=== PATIENT | female | born 1955 | race Caucasian/White ===

== ENCOUNTER 2016-06-14 12:06 | Observation (INO) ==
--- NOTE | 2016-06-14 12:32 | Emergency Department Note ---
Disposition Clinical Impression: COPD (chronic obstructive pulmonary disease), Pneumonia Disposition: Admitted As Inpatient Condition: Fair Referrals: Kit Stern MD [Primary Care Provider] - Forms: Work/School Release, ED Satisfaction Letter Time of Disposition: 14:25 (Venegas obsv) SOB HPI - General Chief Complaint: ED General Medical Stated Complaint: vomiting, cough, and chest congestion Time Seen by Provider: 06/14/16 12:07 Source: patient, EMS Mode of arrival: ambulatory Limitations: no limitations Nursing Notes Reviewed: Yes Vital Signs Reviewed: Yes - History of Present Illness Pt Subjective Complaint: shortness of breath Onset (ago): day(s) (3) Context: recent illness Severity: severe Consistency/Duration: constant Improves with: oxygen Worsens with: exertion, movement, coughing Known history of: COPD, recurrent pneumonia Associated symptoms: Reports: cough, wheezing, sputum production. Denies: chest pain, pain with inspiration, fever, orthopnea, lower extremity pain, polyuria, polydipsia, parasthesias, palpitations, hemoptysis, diaphoresis, nausea/vomiting, syncope, abdominal pain, rash, sense of impending doom Treatment prior to arrival: oxygen, bronchodilator Cough present: Yes Cough Description: Involuntary, Non-Productive, Weak, Wheezy Cough Frequency: Intermittent Sputum production: Yes Sputum Amount: Small Sputum Color: Yellow, Green - Related Data Home Medications Medication Instructions Recorded Confirmed Melatonin 3 mg PO HS PRN 01/23/15 06/14/16 Roflumilast [Daliresp] 500 mcg PO DAILY 09/17/15 06/14/16 Budesonide/Formoterol 160/4.5 2 puff IH BID 03/20/16 06/14/16 [Symbicort 160/4.5] Cyclobenzaprine [Flexeril] 5 mg PO TID 03/20/16 06/14/16 HYDROcodone/Acet 10/325 mg [[place] 1 tab PO Q6HR PRN 03/20/16 06/14/16 10-325 mg] Warfarin Sodium 3 mg PO QPM 03/20/16 06/14/16 Ergocalciferol (VITAMIN D2) 50,000 unit PO 2XW 03/26/16 06/14/16 [Vitamin D2 (50,000 UNIT)] Multivitamin [Multi-Day Vitamins] 1 tab PO DAILY 03/26/16 06/14/16 Oxygen 1 each .ROUTE AD 03/26/16 06/14/16 Previous Rx's Medication Instructions Recorded Montelukast [Singulair] 10 mg PO DAILY #30 tablet 02/14/15 Ondansetron ODT [Zofran ODT] 4 mg SL Q6HR PRN #8 tab.rapdis 01/30/16 Atorvastatin [Lipitor] 10 mg PO HS 30 Days 03/31/16 Diltiazem CD (24hr) [Cardizem CD] 360 mg PO DAILY 30 Days 03/31/16 Sotalol [Betapace] 80 mg PO Q12H 30 Days 03/31/16 Albuterol Sulfate [Albuterol 2 puff IH Q2HR PRN #0 inhaler 05/31/16 Inhaler] LORazepam [Ativan] 1.5 mg PO Q6H tablet 05/31/16 Levalbuterol Neb [Xopenex Neb] 1.25 mg IH Q4HR PRN 30 Days 05/31/16 Magnesium Oxide [Mag-Ox] 400 mg PO DAILY 30 Days 05/31/16 Metoclopramide [Reglan] 5 mg PO BID tablet 05/31/16 PredniSONE 10 mg PO BIDWM #60 tablet 06/09/16 Allergies Allergy/AdvReac Type Severity Reaction Status Date / Time methyl salicylate Allergy See Verified 04/24/16 20:53 Comments metronidazole [From Flagyl] Allergy Hives Verified 04/24/16 20:55 orange juice [[place] Juice] Allergy Swelling Verified 04/24/16 20:55 of Lip/Tongue/Throat sertraline [From Zoloft] Allergy Agitated Verified 04/24/16 20:55 vancomycin Allergy Vomiting Verified 04/24/16 20:55 fidaxomicin [From Dificid] AdvReac Vomiting Verified 04/24/16 20:55 ketorolac [From Toradol] AdvReac Vomiting Verified 05/24/16 17:43 menthol AdvReac Difficulty Verified 04/24/16 20:55 Breathing meperidine [From Demerol] AdvReac Vomiting Verified 04/24/16 20:55 ropinirole [From Requip] AdvReac Vomiting Verified 04/24/16 20:55 simvastatin AdvReac Muscle Pain Verified 04/24/16 20:55 tramadol AdvReac Vomiting Verified 04/24/16 20:55 zolmitriptan AdvReac Agitated Verified 04/24/16 20:55 All systems ED: reviewed and negative except as stated. Constitutional: Denies: fever, chills, weakness Eyes: Denies: vision change ENT ED: Denies: ear pain, throat pain Cardiovascular: Denies: chest pain, palpitations, dyspnea on exertion Respiratory: Reports: cough, dyspnea, wheezes, sputum production Gastrointestinal: Denies: abdominal pain, nausea, vomiting Genitourinary: Denies: urgency, dysuria, frequency Musculoskeletal: Denies: back pain, neck pain Integumentary: Denies: rash Neurological: Denies: headache Psychiatric: Denies: anxiety Endocrine: Denies: fatigue Hematological/Lymphatic: Denies: easy bleeding Allergic/Immunologic: Denies: facial swelling Past Medical History - Past Medical History Attestation: Yes The following information was validated with the patient. Source: patient, old records reviewed, nursing notes reviewed Medical history: Reports: asthma, atrial fibrillation, COPD, DVT, GERD, hyperlipidemia, hypertension, renal disease, SVT, thyroid disease Surgical history: Reports: cataract, cholecystectomy, colostomy, herniorrhaphy Psychiatric history: Reports: anxiety, depression, panic disorder [employer] history: Reports: no [employer] history - Social History Smoking Status: Former smoker Smokeless Tobacco Status: No Alcohol use: Reports: none Drug use: Reports: none Physical Exam - General Limitations: no limitations General appearance: alert, in no apparent distress - Head Head exam: atraumatic, normocephalic, normal inspection - Eye Eye exam: Present: normal appearance, PERRL, EOMI - ENT ENT exam: normal exam, normal oropharynx, mucous membranes moist, normal external ear exam - Neck Neck exam: Present: normal inspection, full ROM, trachea midline - Chest Chest inspection: Present: normal inspection, symmetric chest wall rise - Respiratory Respiratory exam: Present: normal lung sounds bilaterally, wheezes, prolonged expiratory phase - Cardiovascular Cardiovascular exam: Present: regular rate, normal rhythm, normal heart sounds - Abdominal Exam Abdominal exam: Present: soft, Non-Tender, normal bowel sounds - Expanded Upper Extremity Exam Shoulder exam: Present: normal inspection, full ROM Arm exam: Present: normal inspection, full ROM Elbow exam: Present: normal inspection, full ROM Forearm/Wrist exam: Present: normal inspection, full ROM Hand exam: Present: normal inspection, full ROM Vascular exam: Normal: capillary refill, radial pulse - Expanded Lower Extremity Exam Hip/Pelvis exam: Present: normal inspection, full ROM Upper leg exam: Present: normal inspection, full ROM Knee exam: Present: normal inspection, full ROM Lower leg exam: Present: normal inspection, full ROM Ankle exam: Present: normal inspection, full ROM Foot/toe exam: Present: normal inspection, full ROM Neurovascular/Tendon exam: Absent: motor deficit, sensory deficit, tendon deficit Course Course Narrative: Patient seen and examined about external ER patients admitted for observation transfer to [facility] Dr. Venegas agrees Vital Signs Temperature 97.6 F 06/14/16 12:07 Pulse Rate 73 06/14/16 12:07 Respiratory Rate 18 06/14/16 12:07 Blood Pressure 120/87 06/14/16 12:07 O2 Sat by Pulse Oximetry 95 06/14/16 12:07 Temperature 97.6 F 06/14/16 12:10 Pulse Rate 94 06/14/16 13:56 Respiratory Rate 18 06/14/16 13:56 Blood Pressure 121/71 06/14/16 13:56 O2 Sat by Pulse Oximetry 99 06/14/16 13:56 Oxygen Delivery Oxygen Delivery Nasal Cannula Shortness of Breath/Dyspnea - Differential Diagnosis Likely: acute exacerbation of chronic obstructive airways disease - Medical Records Medical records reviewed: Yes I reviewed the patient's medical records. - Lab Data Lab results reviewed: Yes I reviewed the patient's lab results. Result diagrams: 06/14/16 12:54 06/14/16 12:54 Lab Results 06/14/16 06/14/16 06/14/16 Range/Units 12:54 12:54 12:54 WBC 16.2 H (4.3-11.1) K/mcL RBC 4.27 (3.82-4.97) M/mcL Hgb 13.0 (11.5-15.4) g/dL Hct 41.8 (35.3-44.9) % MCV 97.9 (83.0-100.0) fL MCH 30.4 (28.0-33.3) pg MCHC 31.1 L (31.6-35.5) g/dL RDW 15.6 H (11.5-14.5) % Plt Count 293 (140-400) K/mcL MPV 9.5 (9.4-12.4) fL Immature Gran % 1.5 (0-4) % Seg Neutrophils % 73.8 % Lymphocytes % 14.3 % Monocytes % 8.5 % Eosinophils % 1.7 % Basophils % 0.2 % Neutrophils # 12.0 H (1.6-8.9) K/mcL Lymphocytes # 2.3 (0.6-4.6) K/mcL Monocytes # 1.4 H (0.0-1.3) K/mcL Eosinophils # 0.3 (0.0-0.6) K/mcL Basophils # 0.0 (0.0-0.2) K/mcL PT 62.9 H* (9.4-12.1) Seconds INR 5.5 H* APTT 56.5 H (26.0-36.0) Seconds Sodium 142 (136-145) mEq/L Potassium 3.7 (3.5-4.5) mEq/L Chloride 98 (98-109) mEq/L Carbon Dioxide 35 H (19-29) mEq/L BUN 17 (7-20) mg/dL Creatinine 0.79 (0.57-1.11) mg/dL Est GFR ( Amer) > 60 (> 60) Est GFR (Non-Af Amer) > 60 (> 60) BUN/Creatinine Ratio 22 (6-26) Glucose 102 H (70-99) mg/dL Calculated Osmolality 296 (280-300) Calcium 10.0 (8.6-10.8) mg/dL Troponin I (0-0.03) ng/mL B-Natriuretic Peptide (0-100) pg/mL 06/14/16 06/14/16 Range/Units 12:54 12:54 WBC (4.3-11.1) K/mcL RBC (3.82-4.97) M/mcL Hgb (11.5-15.4) g/dL Hct (35.3-44.9) % MCV (83.0-100.0) fL MCH (28.0-33.3) pg MCHC (31.6-35.5) g/dL RDW (11.5-14.5) % Plt Count (140-400) K/mcL MPV (9.4-12.4) fL Immature Gran % (0-4) % Seg Neutrophils % % Lymphocytes % % Monocytes % % Eosinophils % % Basophils % % Neutrophils # (1.6-8.9) K/mcL Lymphocytes # (0.6-4.6) K/mcL Monocytes # (0.0-1.3) K/mcL Eosinophils # (0.0-0.6) K/mcL Basophils # (0.0-0.2) K/mcL PT (9.4-12.1) Seconds INR APTT (26.0-36.0) Seconds Sodium (136-145) mEq/L Potassium (3.5-4.5) mEq/L Chloride (98-109) mEq/L Carbon Dioxide (19-29) mEq/L BUN (7-20) mg/dL Creatinine (0.57-1.11) mg/dL Est GFR ( Amer) (> 60) Est GFR (Non-Af Amer) (> 60) BUN/Creatinine Ratio (6-26) Glucose (70-99) mg/dL Calculated Osmolality (280-300) Calcium (8.6-10.8) mg/dL Troponin I 0.01 (0-0.03) ng/mL B-Natriuretic Peptide 12 (0-100) pg/mL - Radiology Data Radiology results reviewed: Yes I reviewed the patient's radiology results. ITS Impressions Chest X-Ray 06/14/16 12:28 IMPRESSION: Focal consolidation with rounded morphology suggests in the left lower lobe obscured by the cardiac shadow. Follow-up is recommended to ensure resolution with a full inspiration PA and lateral view chest x-ray. D/ / Francis Ramos MD / Francis Ramos MD Interpreting Provider: Francis Ramos MD - EKG Data EKG attestation: Yes I reviewed and interpreted this EKG. EKG results narrative: Rhythm atrial fib pulmonary changes Heart Rate 101 AR QRS 80 QT 315 Axes -78 Critical Care Time Critical Care Time: No
[2016-06-14 13:08] LABS: Basophils % 0.2 %; Eosinophils # 0.3 K/mcL (0.0-0.6); Eosinophils % 1.7 %; Hematocrit 41.8 % (35.3-44.9); Immature Granulocytes % 1.5 % (0-4); Lymphocytes # 2.3 K/mcL (0.6-4.6); Lymphocytes % 14.3 %; Mean Corpuscular HGB Conc 31.1 g/dL (31.6-35.5); Mean Corpuscular Hemoglobin 30.4 pg (28.0-33.3); Mean Corpuscular Volume 97.9 fL (83.0-100.0); Mean Platelet Volume 9.5 fL (9.4-12.4); Monocytes # 1.4 K/mcL (0.0-1.3); Monocytes % 8.5 %; Platelet Count 293 K/mcL (140-400); Red Blood Count 4.27 M/mcL (3.82-4.97); Red Cell Distribution Width 15.6 % (11.5-14.5); Segmented Neutrophils % 73.8 %
[2016-06-14 13:17] LABS: Activated Partial Thrombo Time 56.5 Seconds (26.0-36.0)
[2016-06-14 13:25] LABS: BUN/Creatinine Ratio 22 (6-26); Blood Urea Nitrogen 17 mg/dL (7-20); Carbon Dioxide 35 mEq/L (19-29); Chloride 98 mEq/L (98-109); Glucose 102 mg/dL (70-99); Osmolality,Calculated 296 (280-300); Potassium 3.7 mEq/L (3.5-4.5); Sodium 142 mEq/L (136-145); eGFR For African Americans > 60 (> 60); eGFR For Non-African Americans > 60 (> 60)
[2016-06-14 13:30] LABS: INR 5.5; Prothrombin Time 62.9 Seconds (9.4-12.1)
[2016-06-14] MEDS ORDERED: CefTRIAXone 1,000 MG in D5% in Water (Mini-Bag+) 100 ML IVPB ONE (14:12)
[2016-06-14] MEDS ORDERED: Azithromycin 500 MG in D5% in Water 250 ML IVPB ONE (14:12)
[2016-06-14] MEDS ORDERED: 0.9 % Sodium Chloride 1,000 ML IVC SCH (14:15)
[2016-06-14] MEDS ORDERED: Naloxone 0.4 MG/ML INJ IVP PRN (15:38)
[2016-06-14] MEDS: *HR* LORazepam 0.5 MG TABLET PO SCH ×2 (16:25→21:26)
[2016-06-14] MEDS: Ondansetron ODT 4 MG TAB.RAPDIS SL PRN ×2 (16:26→21:26)
[2016-06-14] MEDS: Levalbuterol Neb 1.25 MG/3 ML IH PRN ×2 (17:24→20:27)
[2016-06-14] MEDS ORDERED: *HR* Warfarin 1 MG TABLET PO SCH (18:00)
[2016-06-14] MEDS: Azithromycin 500 MG in D5% in Water 250 ML IVPB SCH (18:36)
[2016-06-14] MEDS: 0.9 % Sodium Chloride 1,000 ML IVC SCH (19:28)
[2016-06-14] MEDS: Budesonide/Formoterol 160/4.5 MDI IH SCH (20:27)
[2016-06-14] MEDS: *HR* HYDROcodone/Acet 10/325 mg TABLET PO PRN (21:26)
[2016-06-15] MEDS: *HR* LORazepam 0.5 MG TABLET PO SCH ×4 (04:26→21:18)
[2016-06-15] MEDS: Levalbuterol Neb 1.25 MG/3 ML IH PRN ×5 (04:40→20:59)
[2016-06-15 06:37] LABS: Basophils % 0.3 %; Eosinophils # 0.2 K/mcL (0.0-0.6); Eosinophils % 2.1 %; Hematocrit 34.9 % (35.3-44.9); Hemoglobin 11.2 g/dL (11.5-15.4); Immature Granulocytes % 1.2 % (0-4); Lymphocytes # 2.4 K/mcL (0.6-4.6); Lymphocytes % 21.2 %; Mean Corpuscular HGB Conc 32.1 g/dL (31.6-35.5); Mean Corpuscular Volume 96.7 fL (83.0-100.0); Mean Platelet Volume 9.2 fL (9.4-12.4); Monocytes # 1.1 K/mcL (0.0-1.3); Monocytes % 9.5 %; Neutrophils # 7.4 K/mcL (1.6-8.9); Platelet Count 238 K/mcL (140-400); Red Blood Count 3.61 M/mcL (3.82-4.97); Red Cell Distribution Width 15.6 % (11.5-14.5); Segmented Neutrophils % 65.7 %
[2016-06-15 06:54] LABS: BUN/Creatinine Ratio 19 (6-26); Blood Urea Nitrogen 11 mg/dL (7-20); Calcium 9.1 mg/dL (8.6-10.8); Carbon Dioxide 31 mEq/L (19-29); Chloride 101 mEq/L (98-109); Glucose 99 mg/dL (70-99); Osmolality,Calculated 289 (280-300); Potassium 3.5 mEq/L (3.5-4.5); Sodium 140 mEq/L (136-145); eGFR For African Americans > 60 (> 60); eGFR For Non-African Americans > 60 (> 60)
[2016-06-15 07:17] LABS: Activated Partial Thrombo Time 52.4 Seconds (26.0-36.0)
[2016-06-15] MEDS: 0.9 % Sodium Chloride 1,000 ML IVC SCH (08:12)
[2016-06-15] MEDS: Multivit/Ca/Min/Fe/FA 1 TAB TABLET PO SCH (08:13)
[2016-06-15] MEDS: Ondansetron ODT 4 MG TAB.RAPDIS SL PRN (08:13)
[2016-06-15] MEDS: Magnesium Oxide 400 MG TABLET PO SCH (08:13)
[2016-06-15] MEDS: Diltiazem CD (24hr) 180 MG CAPSULE PO SCH (08:13)
[2016-06-15] MEDS: [UNRECOGNIZED DRUG - OTHER] PO SCH (08:16)
[2016-06-15] MEDS: Cholecalciferol (D-3) 1,000 UNIT TABLET PO SCH (08:17)
[2016-06-15] MEDS: *HR* HYDROcodone/Acet 10/325 mg TABLET PO PRN ×2 (08:18→21:22)
[2016-06-15] MEDS: Budesonide/Formoterol 160/4.5 MDI IH SCH ×2 (08:51→22:38)
[2016-06-15 09:05] LABS: INR 4.8; Prothrombin Time 53.9 Seconds (9.4-12.1)
--- NOTE | 2016-06-15 10:10 | Internal Med History&Physical ---
Date of Encounter: 06/15/16 Time of Encounter: 09:45 Assessment and Plan (1) Pneumonia Current visit: Yes Status: Acute Continue Rocephin and Zithromax. I will add lactobacillus. Qualifiers: Pneumonia type: due to unspecified organism Laterality: left Lung location: lower lobe of lung Qualified Code(s): J18.9 - Pneumonia, unspecified organism (2) Anxiety Current visit: No Status: Acute Continue scheduled Ativan (3) Atrial fibrillation with rapid ventricular response Current visit: No Status: Acute Remains in normal sinus rhythm. Continue sotalol and diltiazem. We will hold Coumadin for now since INR is elevated. (4) Hypomagnesemia Current visit: No Status: Resolved Continue magnesium oxide Internal Medicine - H&P: HPI Chief complaint: Cough and vomiting Admitted From: Home Plans for Post Hospital Care: Home History of present illness: Ms. Stern is a 60 year old female who came to emergency room complaining of 3 day history of vomiting with crampy abdominal pain and a cough productive of greenish sputum. She also had complaints of a headache. She denied diarrhea. Her evaluation showed possible left lower lobe retrocardiac pneumonia. She was admitted to [facility] floor for ongoing care needs. She was discharged from [facility] swing bed June 09 following acute care stay May 25- for exacerbation of COPD. Her respiratory history is significant for having smoked from age [age] up to 3 packs per day. She had pulmonary function test done 09/15/2015 which showed very severe COPD. She follows with Dr. Jarvis at [facility]. She wears oxygen 24/7 at 2 L/m. She has had negative workup for sleep apnea in the past. She considered lung transplant at one time for COPD but decided against that. She is been hospitalized many times at [facility] the past few years with dyspnea. Her most recent chest CT was 04/15/2016 which showed no acute abnormalities. Past Med Surg Social Fam HX - Past Medical History Medical history: asthma, atrial fibrillation, COPD, DVT, GERD, hyperlipidemia, hypertension, renal disease, SVT, thyroid disease Psychiatric history: anxiety, depression, panic disorder - Past Surgical History Surgical History: cataract, cholecystectomy, colostomy, herniorrhaphy - Social History Smoking Status: Former smoker Smokeless Tobacco Status: No Alcohol use: none Drug use: none - Family History Father Family Member Ethnicity: Non- Living Status: Hx Family Cardiac Disorders: Yes ( of [place] at 58) Internal Medicine - H&P: Meds Melatonin 3 mg PO HS PRN 01/23/15 [History] Montelukast [Singulair] 10 mg PO DAILY #30 tablet 02/14/15 [Rx] Roflumilast [Daliresp] 500 mcg PO DAILY 09/17/15 [History] Ondansetron ODT [Zofran ODT] 4 mg SL Q6HR PRN #8 tab.rapdis 01/30/16 [Rx] Budesonide/Formoterol 160/4.5 [Symbicort 160/4.5] 2 puff IH BID 03/20/16 [ History] Cyclobenzaprine [Flexeril] 5 mg PO TID 03/20/16 [History] HYDROcodone/Acet 10/325 mg [[place] 10-325 mg] 1 tab PO Q6HR PRN 03/20/16 [History ] Warfarin Sodium 3 mg PO QPM 03/20/16 [History] Ergocalciferol (VITAMIN D2) [Vitamin D2 (50,000 UNIT)] 50,000 unit PO 2XW [History] Multivitamin [Multi-Day Vitamins] 1 tab PO DAILY 03/26/16 [History] Oxygen 1 each .ROUTE AD 03/26/16 [History] Atorvastatin [Lipitor] 10 mg PO HS 30 Days 03/31/16 [Rx] Diltiazem CD (24hr) [Cardizem CD] 360 mg PO DAILY 30 Days 03/31/16 [Rx] Sotalol [Betapace] 80 mg PO Q12H 30 Days 03/31/16 [Rx] Albuterol Sulfate [Albuterol Inhaler] 2 puff IH Q2HR PRN #0 inhaler 05/31/16 [Rx ] LORazepam [Ativan] 1.5 mg PO Q6H tablet 05/31/16 [Rx] Levalbuterol Neb [Xopenex Neb] 1.25 mg IH Q4HR PRN 30 Days 05/31/16 [Rx] Magnesium Oxide [Mag-Ox] 400 mg PO DAILY 30 Days 05/31/16 [Rx] Metoclopramide [Reglan] 5 mg PO BID tablet 12/15/16 [Rx] PredniSONE 10 mg PO BIDWM #60 tablet 06/09/16 [Rx] Allergies methyl salicylate Allergy (Verified 04/24/16 20:53) See Comments metronidazole [From Flagyl] Allergy (Verified 04/24/16 20:55) Hives orange juice [[place] Juice] Allergy (Verified 04/24/16 20:55) Swelling of Lip/Tongue/Throat sertraline [From Zoloft] Allergy (Verified 04/24/16 20:55) Agitated vancomycin Allergy (Verified 04/24/16 20:55) Vomiting fidaxomicin [From Dificid] Adverse Reaction (Verified 04/24/16 20:55) Vomiting ketorolac [From Toradol] Adverse Reaction (Verified 05/24/16 17:43) Vomiting menthol Adverse Reaction (Verified 04/24/16 20:55) Difficulty Breathing meperidine [From Demerol] Adverse Reaction (Verified 04/24/16 20:55) Vomiting ropinirole [From Requip] Adverse Reaction (Verified 04/24/16 20:55) Vomiting simvastatin Adverse Reaction (Verified 04/24/16 20:55) Muscle Pain tramadol Adverse Reaction (Verified 04/24/16 20:55) Vomiting zolmitriptan Adverse Reaction (Verified 04/24/16 20:55) Agitated All Systems PM: A 10-system review of systems was performed and is negative for pertinent findings except as documented above in the HPI. Review of systems: Review of systems from the May 2016 [facility] hospitalization were reviewed and revised as below. Gen.: Her weight has increased from approximately 150 pounds June 2015 to present weight of approximately 160 pounds. Cardiovascular: She has paroxysmal atrial fibrillation and hypertension. She was hospitalized for this at [facility] March 2016 and was initially placed on Rythmol but later changed to sotalol. She had DVT with pulmonary embolus July 2014 and had IVC filter placed at [facility]. She was initially placed on Coumadin but this was discontinued after approximately 3 months and she was placed on Xarelto. She developed nosebleeds and other complications so was restarted back on Coumadin after a few weeks. She had another pulmonary embolism February 2015 at [facility] after bowel surgery.She had a limited echocardiogram done 03/21/2016 which showed normal LV size. The LVEF was 55%. There was mild diastolic dysfunction reported on an September 2015 echo but no significant valvular abnormality seen. Left atrial size was normal at 3.30 cm. She had a heart catheter 2008 and an exercise stress test June 2012 which were negative. Respiratory: As per history of present illness GI: She is status post cholecystectomy. She had polyps seen on a 2005 colonoscopy but has not had follow-up procedure done. She had an EGD approximately 2006. She denies other liver or exocrine pancreas disorders. She had segmental resection of colon secondary to diverticulitis with perforation February 2015 at [facility]. Her postop course was complicated with pulmonary embolism. She had development of a colostomy and has been told she will not have a takedown procedure because of her severe COPD. : She had hematuria in the past that resolved. She denies other kidney or bladder disorders. She has had tubal ligation. Endocrine: She has hyperlipidemia but no known diabetes or thyroid disease. She has been diagnosed with vitamin D deficiency. Neurologic: No history of large distribution strokes or seizures. Hematology/oncology: She has had anemia and B12 and iron deficiency past. She has not had documented internal malignancies. Psychiatric: She has anxiety and depression but no other mental health issues Musk skeletal: She has DJD and osteoporosis but no known gout. - Constitutional Vitals: Temp Pulse Resp BP Pulse Ox 98.4 F 86 21 100/69 97 06/15/16 06:50 06/15/16 06:50 06/15/16 08:51 06/15/16 06:50 06/15/16 08:51 Exam: Gen.: She is a well-developed well-nourished female lying quietly in bed who appears in no severe distress but does appear uncomfortable HEENT: Head is atraumatic and normocephalic. Eyes: EOMI. There is no scleral icterus. Mouth: Mucosa is moist. Neck: Supple and nontender. There is no thyromegaly or adenopathy noted. Heart: Regular without murmurs gallops or ectopics. Lungs: She has diminished breath sounds diffusely. No wheezing or inspiratory crackles are heard. There is no egophony. Abdomen: Bowel sounds are present. An ostomy is in the left lower abdominal area with small amount of feces noted in the colostomy bag. The abdomen is nontender to palpation. Extremities: There is no cyanosis edema or clubbing noted. Dorsalis pedis and posterior tibial pulses are 1-2 over 2 bilaterally. Neurologic: Mental status: She is talkative and a good historian. Cranial nerves: Smile is symmetric. Forehead wrinkles bilaterally. Tongue protrudes midline. EOMI. Motor: There is no pronator drift. Cerebellar: Finger to nose is intact bilaterally. Skin: Warm and dry Internal Med - H&P Results - Labs CBC & Chem 7: 06/15/16 06:20 06/15/16 06:20 Labs: Short CBC 06/15/16 Range/Units 06:20 WBC 11.3 H (4.3-11.1) K/mcL Hgb 11.2 L D (11.5-15.4) g/dL Hct 34.9 L (35.3-44.9) % Plt Count 238 (140-400) K/mcL Neutrophils # 7.4 (1.6-8.9) K/mcL BMP 06/15/16 06:20 Sodium 140 Potassium 3.5 Chloride 101 Carbon Dioxide 31 H BUN 11 Creatinine 0.58 Glucose 99 Calcium 9.1
--- NOTE | 2016-06-15 11:18 | Electrocardiograph Report ---
[facility] Test Date: 2016-06-14 Pat Name: Meglarissa Cubaer Department: [id number] Room: [facility] Gender: F [employer] Member: [id number] : 1955 Requested By: Jailyn Stern Order Number: [id number] Reading MD: Clint Reyes Measurements Intervals [place] Rate: 101 P: NV: 0 QRS: -78 QRSD: 80 T: 58 QT: 315 QTc: 373 Interpretive Statements SINUS TACHYCARDIA LOW QRS VOLTAGE LEFT ATRIAL ENLARGEMENT Electronically Signed On 06-15-16 11:16:46 EST by Clint Reyes
[2016-06-15] MEDS: 0.45 % Sodium Chloride w/KCl 20 MEQ/1,000 ML MLS IVC SCH (11:46)
[2016-06-15] MEDS: CefTRIAXone 1,000 MG in D5% in Water (Mini-Bag+) 100 ML IVPB SCH (14:06)
[2016-06-15] MEDS: Azithromycin 500 MG in D5% in Water 250 ML IVPB SCH (18:27)
[2016-06-15] MEDS: Lactobacillus 1 EACH CAP.SPRINK PO SCH (21:17)
[2016-06-16] MEDS: 0.45 % Sodium Chloride w/KCl 20 MEQ/1,000 ML MLS IVC SCH (02:50)
[2016-06-16] MEDS: *HR* HYDROcodone/Acet 10/325 mg TABLET PO PRN ×4 (04:01→22:16)
[2016-06-16] MEDS: *HR* LORazepam 0.5 MG TABLET PO SCH ×4 (04:04→22:18)
[2016-06-16 05:22] LABS: Basophils % 0.2 %; Eosinophils # 0.2 K/mcL (0.0-0.6); Eosinophils % 2.2 %; Hematocrit 32.2 % (35.3-44.9); Immature Granulocytes % 1.2 % (0-4); Lymphocytes # 1.9 K/mcL (0.6-4.6); Lymphocytes % 21.6 %; Mean Corpuscular HGB Conc 31.1 g/dL (31.6-35.5); Mean Corpuscular Hemoglobin 30.6 pg (28.0-33.3); Mean Corpuscular Volume 98.5 fL (83.0-100.0); Mean Platelet Volume 8.8 fL (9.4-12.4); Monocytes # 0.9 K/mcL (0.0-1.3); Neutrophils # 5.8 K/mcL (1.6-8.9); Platelet Count 207 K/mcL (140-400); Red Blood Count 3.27 M/mcL (3.82-4.97); Red Cell Distribution Width 15.5 % (11.5-14.5); Segmented Neutrophils % 64.8 %
[2016-06-16] MEDS: Levalbuterol Neb 1.25 MG/3 ML IH PRN ×4 (07:12→21:55)
[2016-06-16] MEDS: Lactobacillus 1 EACH CAP.SPRINK PO SCH ×2 (08:34→22:18)
[2016-06-16] MEDS: Magnesium Oxide 400 MG TABLET PO SCH (08:35)
[2016-06-16] MEDS: Cholecalciferol (D-3) 1,000 UNIT TABLET PO SCH (08:35)
[2016-06-16] MEDS: Multivit/Ca/Min/Fe/FA 1 TAB TABLET PO SCH (08:35)
[2016-06-16] MEDS: Diltiazem CD (24hr) 180 MG CAPSULE PO SCH (08:35)
[2016-06-16] MEDS: [UNRECOGNIZED DRUG - OTHER] PO SCH (08:36)
--- NOTE | 2016-06-16 09:11 | Internal Med Progress Note ---
Date of Encounter: 06/16/16 Time of Encounter: 09:00 - Assessment and plan (1) Pneumonia Current Visit: Yes Status: Acute Assessment and plan: June 16. Continue Rocephin, Zithromax, and lactobacillus Qualifiers: Pneumonia type: due to unspecified organism Laterality: left Lung location: lower lobe of lung Qualified Code(s): J18.9 - Pneumonia, unspecified organism (2) Anxiety Current Visit: No Status: Acute Assessment and plan: June 16. Continue scheduled Ativan (3) Atrial fibrillation with rapid ventricular response Current Visit: No Status: Acute Assessment and plan: June 16. Continue sotalol and diltiazem. We will continue to hold Coumadin and recheck INR in a.m. (4) Hypomagnesemia Current Visit: No Status: Chronic Assessment and plan: June 16. Continue magnesium oxide. Magnesium level was normal today at 1.7. - Subjective Interval history: June 16. She has no new complaints and states she feels slightly better. - Constitutional Vitals: Temp Pulse Resp BP Pulse Ox 98.0 F 79 18 112/78 97 06/16/16 06:52 06/16/16 06:52 06/16/16 06:52 06/16/16 06:52 06/16/16 08:48 Exam: She is resting in bed appears in minimal distress. Her lungs showed diminished breath sounds diffusely but no wheezes or crackles. Heart is regular without murmurs gallops or ectopics. I reviewed her medications and lab results. Internal Medicine: Result - Labs CBC & Chem 7: 06/16/16 05:15 06/15/16 06:20 Labs: Short CBC 06/16/16 Range/Units 05:15 WBC 8.9 (4.3-11.1) K/mcL Hgb 10.0 L (11.5-15.4) g/dL Hct 32.2 L (35.3-44.9) % Plt Count 207 (140-400) K/mcL Neutrophils # 5.8 (1.6-8.9) K/mcL - ABG Interpretation ABG results: PT/INR, D-dimer PT 53.9 Seconds (9.4-12.1) H* 06/15/16 06:20 Consult Discharge Plan - Plan Referrals: Kit Stern MD [Primary Care Provider] - 1 week
[2016-06-16] MEDS: Budesonide/Formoterol 160/4.5 MDI IH SCH ×2 (10:36→21:55)
[2016-06-16] MEDS: CefTRIAXone 1,000 MG in D5% in Water (Mini-Bag+) 100 ML IVPB SCH (14:25)
[2016-06-16] MEDS: Azithromycin 500 MG in D5% in Water 250 ML IVPB SCH (18:00)
[2016-06-17] MEDS: *HR* LORazepam 0.5 MG TABLET PO SCH ×4 (03:59→22:54)
[2016-06-17] MEDS: *HR* HYDROcodone/Acet 10/325 mg TABLET PO PRN ×3 (04:01→22:56)
[2016-06-17 05:24] LABS: Basophils % 0.3 %; Eosinophils # 0.3 K/mcL (0.0-0.6); Eosinophils % 3.2 %; Hematocrit 33.2 % (35.3-44.9); Hemoglobin 10.3 g/dL (11.5-15.4); Lymphocytes # 1.8 K/mcL (0.6-4.6); Lymphocytes % 22.6 %; Mean Corpuscular Hemoglobin 30.8 pg (28.0-33.3); Mean Corpuscular Volume 99.4 fL (83.0-100.0); Mean Platelet Volume 8.8 fL (9.4-12.4); Monocytes # 0.8 K/mcL (0.0-1.3); Monocytes % 10.6 %; Neutrophils # 4.9 K/mcL (1.6-8.9); Platelet Count 205 K/mcL (140-400); Red Blood Count 3.34 M/mcL (3.82-4.97); Red Cell Distribution Width 15.4 % (11.5-14.5); Segmented Neutrophils % 62.3 %
[2016-06-17 05:33] LABS: INR 1.5; Prothrombin Time 15.9 Seconds (9.4-12.1)
[2016-06-17] MEDS: Budesonide/Formoterol 160/4.5 MDI IH SCH ×2 (08:50→21:17)
[2016-06-17] MEDS: Levalbuterol Neb 1.25 MG/3 ML IH PRN ×3 (08:50→21:17)
--- NOTE | 2016-06-17 10:03 | Internal Med Progress Note ---
Date of Encounter: 06/17/16 Time of Encounter: 09:55 - Assessment and plan (1) Pneumonia Current Visit: Yes Status: Acute Assessment and plan: June 16. Continue Rocephin, Zithromax, and lactobacillus June 17. We will discontinue Rocephin and Zithromax and lactobacillus since her WBC and left shift have normalized Qualifiers: Pneumonia type: due to unspecified organism Laterality: left Lung location: lower lobe of lung Qualified Code(s): J18.9 - Pneumonia, unspecified organism (2) Anxiety Current Visit: No Status: Acute Assessment and plan: June 16. Continue scheduled Ativan (3) Atrial fibrillation with rapid ventricular response Current Visit: No Status: Acute Assessment and plan: June 16. Continue sotalol and diltiazem. We will continue to hold Coumadin and recheck INR in a.m. June 17. We will restart Coumadin (4) Hypomagnesemia Current Visit: No Status: Chronic Assessment and plan: June 16. Continue magnesium oxide. Magnesium level was normal today at 1.7. - Subjective Interval history: June 16. She has no new complaints and states she feels slightly better. June 17. She states she is more dyspneic and has a headache - Constitutional Vitals: Temp Pulse Resp BP Pulse Ox 98.2 F 78 16 101/65 96 06/17/16 07:10 06/17/16 07:10 06/17/16 07:10 06/17/16 07:10 06/17/16 09:45 Exam: She is lying in bed and appears to be in pain. She is holding her head. Her lungs are clear peripherally but she has upper airway stridor as heard many times previously. I reviewed her medications and lab results. Internal Medicine: Result - Labs CBC & Chem 7: 06/17/16 05:18 06/15/16 06:20 Labs: Short CBC 06/17/16 Range/Units 05:18 WBC 7.8 (4.3-11.1) K/mcL Hgb 10.3 L (11.5-15.4) g/dL Hct 33.2 L (35.3-44.9) % Plt Count 205 (140-400) K/mcL Neutrophils # 4.9 (1.6-8.9) K/mcL - ABG Interpretation ABG results: PT/INR, D-dimer PT 15.9 Seconds (9.4-12.1) H D 06/17/16 05:18 Consult Discharge Plan - Plan Referrals: Kit Stern MD [Primary Care Provider] - 1 week
[2016-06-17] MEDS: Multivit/Ca/Min/Fe/FA 1 TAB TABLET PO SCH (10:08)
[2016-06-17] MEDS: [UNRECOGNIZED DRUG - OTHER] PO SCH (10:09)
[2016-06-17] MEDS: Magnesium Oxide 400 MG TABLET PO SCH (10:09)
[2016-06-17] MEDS: Diltiazem CD (24hr) 180 MG CAPSULE PO SCH (10:10)
[2016-06-17] MEDS: Cholecalciferol (D-3) 1,000 UNIT TABLET PO SCH (10:10)
[2016-06-17] MEDS: Lactobacillus 1 EACH CAP.SPRINK PO SCH (10:12)
[2016-06-17] MEDS: PredniSONE 10 MG TABLET PO SCH (15:33)
[2016-06-17] MEDS: *HR* Warfarin 1 MG TABLET PO SCH (16:19)
[2016-06-18] MEDS: *HR* LORazepam 0.5 MG TABLET PO SCH ×4 (04:25→21:10)
[2016-06-18] MEDS: Levalbuterol Neb 1.25 MG/3 ML IH PRN ×4 (08:03→21:06)
[2016-06-18] MEDS: PredniSONE 10 MG TABLET PO SCH ×2 (08:48→18:18)
[2016-06-18] MEDS: Magnesium Oxide 400 MG TABLET PO SCH (08:48)
[2016-06-18] MEDS: Diltiazem CD (24hr) 180 MG CAPSULE PO SCH (08:48)
[2016-06-18] MEDS: Multivit/Ca/Min/Fe/FA 1 TAB TABLET PO SCH (08:49)
[2016-06-18] MEDS: Cholecalciferol (D-3) 1,000 UNIT TABLET PO SCH (08:49)
[2016-06-18] MEDS: [UNRECOGNIZED DRUG - OTHER] PO SCH (08:49)
[2016-06-18] MEDS: *HR* HYDROcodone/Acet 10/325 mg TABLET PO PRN ×3 (09:45→21:10)
[2016-06-18] MEDS: Budesonide/Formoterol 160/4.5 MDI IH SCH ×2 (09:53→21:06)
--- NOTE | 2016-06-18 10:13 | Internal Med Progress Note ---
Date of Encounter: 06/18/16 Time of Encounter: 10:00 - Assessment and plan (1) Pneumonia Current Visit: Yes Status: Acute Assessment and plan: June 16. Continue Rocephin, Zithromax, and lactobacillus June 17. We will discontinue Rocephin and Zithromax and lactobacillus since her WBC and left shift have normalized June 18. Continue to observe off antibiotics. Qualifiers: Pneumonia type: due to unspecified organism Laterality: left Lung location: lower lobe of lung Qualified Code(s): J18.9 - Pneumonia, unspecified organism (2) Anxiety Current Visit: No Status: Acute Assessment and plan: June 16. Continue scheduled Ativan (3) Atrial fibrillation with rapid ventricular response Current Visit: No Status: Acute Assessment and plan: June 16. Continue sotalol and diltiazem. We will continue to hold Coumadin and recheck INR in a.m. June 17. We will restart Coumadin (4) Hypomagnesemia Current Visit: No Status: Chronic Assessment and plan: June 16. Continue magnesium oxide. Magnesium level was normal today at 1.7. (5) Fall Current Visit: Yes Status: Acute Assessment and plan: June 18. Will order physical therapy and occupational therapy evaluations. She stated she wished to go to [facility] for rehabilitation therapy if possible prior to returning home. Qualifiers: Encounter type: initial encounter Qualified Code(s): W19.XXXA - Unspecified fall, initial encounter - Subjective Interval history: June 16. She has no new complaints and states she feels slightly better. June 17. She states she is more dyspneic and has a headache June 18. She had a fall earlier today as she was attempting to go from her bed to the bedside commode. She fell onto her left side hitting her hip and head. - Constitutional Vitals: Temp Pulse Resp BP Pulse Ox 97.4 F L 84 16 131/90 93 L 06/18/16 09:00 06/18/16 09:00 06/18/16 09:52 06/18/16 09:00 06/18/16 09:52 Exam: She does not appear to be in significant pain at rest. She has an ecchymosis in her left lateral posterior thigh. There is tenderness to palpation of the bruised area. She has no pain on internal or external rotation of the hip. She has very mild ecchymosis of the left lateral orbital area. Her affect is bright and cheerful overall. We had a long discussion about her multiple hospitalizations over the past 2 years and need to change her environment in some way to avoid continuing the present cyclical admission pattern. Internal Medicine: Result - Labs CBC & Chem 7: 06/17/16 05:18 06/15/16 06:20 - ABG Interpretation ABG results: PT/INR, D-dimer PT 15.9 Seconds (9.4-12.1) H D 06/17/16 05:18 Consult Discharge Plan - Plan Referrals: Kit Stern MD [Primary Care Provider] - 1 week
[2016-06-18] MEDS: Ondansetron ODT 4 MG TAB.RAPDIS SL PRN ×2 (17:33→21:08)
[2016-06-18] MEDS: *HR* Warfarin 1 MG TABLET PO SCH (18:18)
[2016-06-18] MEDS: Melatonin 3 MG TABLET PO PRN (21:09)
[2016-06-19] MEDS: Levalbuterol Neb 1.25 MG/3 ML IH PRN ×4 (03:14→22:37)
[2016-06-19] MEDS: *HR* LORazepam 0.5 MG TABLET PO SCH (05:35)
[2016-06-19] MEDS: PredniSONE 10 MG TABLET PO SCH ×2 (08:01→16:46)
[2016-06-19] MEDS: *HR* HYDROcodone/Acet 10/325 mg TABLET PO PRN ×3 (08:01→22:36)
[2016-06-19] MEDS: Budesonide/Formoterol 160/4.5 MDI IH SCH ×2 (08:39→22:37)
[2016-06-19] MEDS: Diltiazem CD (24hr) 180 MG CAPSULE PO SCH (09:03)
[2016-06-19] MEDS: *HR* LORazepam 1 MG TABLET PO SCH ×3 (09:03→22:12)
[2016-06-19] MEDS: Multivit/Ca/Min/Fe/FA 1 TAB TABLET PO SCH (09:04)
[2016-06-19] MEDS: Cholecalciferol (D-3) 1,000 UNIT TABLET PO SCH (09:04)
[2016-06-19] MEDS: Magnesium Oxide 400 MG TABLET PO SCH (09:04)
[2016-06-19] MEDS: [UNRECOGNIZED DRUG - OTHER] PO SCH (09:04)
[2016-06-19] MEDS: *HR* Warfarin 1 MG TABLET PO SCH (18:08)
[2016-06-19] MEDS: Melatonin 3 MG TABLET PO PRN (22:12)
[2016-06-20] MEDS: *HR* LORazepam 1 MG TABLET PO SCH ×4 (07:39→21:34)
[2016-06-20] MEDS: Diltiazem CD (24hr) 180 MG CAPSULE PO SCH (07:44)
[2016-06-20] MEDS: Cholecalciferol (D-3) 1,000 UNIT TABLET PO SCH (07:44)
[2016-06-20] MEDS: Magnesium Oxide 400 MG TABLET PO SCH (07:44)
[2016-06-20] MEDS: Multivit/Ca/Min/Fe/FA 1 TAB TABLET PO SCH (07:45)
[2016-06-20] MEDS: PredniSONE 10 MG TABLET PO SCH ×2 (07:45→17:06)
[2016-06-20] MEDS: *HR* HYDROcodone/Acet 10/325 mg TABLET PO PRN ×2 (07:45→14:41)
[2016-06-20] MEDS: [UNRECOGNIZED DRUG - OTHER] PO SCH (08:02)
[2016-06-20] MEDS: Budesonide/Formoterol 160/4.5 MDI IH SCH ×2 (11:25→21:45)
[2016-06-20] MEDS: Levalbuterol Neb 1.25 MG/3 ML IH PRN ×3 (11:31→21:45)
--- NOTE | 2016-06-20 15:55 | Internal Med Progress Note ---
Date of Encounter: 06/20/16 Time of Encounter: 15:45 - Assessment and plan (1) Pneumonia Current Visit: Yes Status: Acute Assessment and plan: June 16. Continue Rocephin, Zithromax, and lactobacillus June 17. We will discontinue Rocephin and Zithromax and lactobacillus since her WBC and left shift have normalized June 18. Continue to observe off antibiotics. Qualifiers: Pneumonia type: due to unspecified organism Laterality: left Lung location: lower lobe of lung Qualified Code(s): J18.9 - Pneumonia, unspecified organism (2) Anxiety Current Visit: No Status: Acute Assessment and plan: June 16. Continue scheduled Ativan (3) Atrial fibrillation with rapid ventricular response Current Visit: No Status: Acute Assessment and plan: June 16. Continue sotalol and diltiazem. We will continue to hold Coumadin and recheck INR in a.m. June 17. We will restart Coumadin June 20. Will recheck labs in a.m. (4) Hypomagnesemia Current Visit: No Status: Chronic Assessment and plan: June 16. Continue magnesium oxide. Magnesium level was normal today at 1.7. June 20. We will recheck labs in a.m. (5) Fall Current Visit: Yes Status: Acute Assessment and plan: June 18. Will order physical therapy and occupational therapy evaluations. She stated she wished to go to [facility] for rehabilitation therapy if possible prior to returning home. Qualifiers: Encounter type: initial encounter Qualified Code(s): W19.XXXA - Unspecified fall, initial encounter - Subjective Interval history: June 16. She has no new complaints and states she feels slightly better. June 17. She states she is more dyspneic and has a headache June 18. She had a fall earlier today as she was attempting to go from her bed to the bedside commode. She fell onto her left side hitting her hip and head. June 20. She has no new complaints. She is awaiting insurance approval to go to [facility] - Constitutional Vitals: Temp Pulse Resp BP Pulse Ox 98.3 F 71 16 104/68 94 L 06/20/16 15:31 06/20/16 15:31 06/20/16 15:31 06/20/16 15:31 06/20/16 15:31 Exam: She is resting comfortably in bed in no acute distress. Her affect is cheerful. Her lungs show no stridor. Extremity show no edema. I reviewed her medications and lab results. Internal Medicine: Result - Labs CBC & Chem 7: 06/17/16 05:18 06/15/16 06:20 - ABG Interpretation ABG results: PT/INR, D-dimer PT 15.9 Seconds (9.4-12.1) H D 06/17/16 05:18 Consult Discharge Plan - Plan Referrals: Kit Stern MD [Primary Care Provider] - 1 week
[2016-06-20] MEDS: *HR* Warfarin 1 MG TABLET PO SCH (17:05)
[2016-06-21] MEDS: *HR* LORazepam 1 MG TABLET PO SCH ×4 (03:00→20:41)
[2016-06-21] MEDS: Ondansetron ODT 4 MG TAB.RAPDIS SL PRN (09:04)
[2016-06-21] MEDS: PredniSONE 10 MG TABLET PO SCH ×2 (09:05→17:58)
[2016-06-21] MEDS: Multivit/Ca/Min/Fe/FA 1 TAB TABLET PO SCH (09:05)
[2016-06-21] MEDS: Diltiazem CD (24hr) 180 MG CAPSULE PO SCH (09:05)
[2016-06-21] MEDS: [UNRECOGNIZED DRUG - OTHER] PO SCH (09:05)
[2016-06-21] MEDS: Magnesium Oxide 400 MG TABLET PO SCH (09:05)
[2016-06-21] MEDS: Cholecalciferol (D-3) 1,000 UNIT TABLET PO SCH (09:05)
[2016-06-21] MEDS: *HR* HYDROcodone/Acet 10/325 mg TABLET PO PRN ×3 (09:07→21:52)
[2016-06-21] MEDS: Levalbuterol Neb 1.25 MG/3 ML IH PRN ×2 (09:24→21:15)
[2016-06-21] MEDS: Budesonide/Formoterol 160/4.5 MDI IH SCH ×2 (09:25→21:15)
--- NOTE | 2016-06-21 15:33 | Internal Med Progress Note ---
Date of Encounter: 06/21/16 Time of Encounter: 15:25 - Assessment and plan (1) Pneumonia Current Visit: Yes Status: Acute Assessment and plan: June 16. Continue Rocephin, Zithromax, and lactobacillus June 17. We will discontinue Rocephin and Zithromax and lactobacillus since her WBC and left shift have normalized June 18. Continue to observe off antibiotics. Qualifiers: Pneumonia type: due to unspecified organism Laterality: left Lung location: lower lobe of lung Qualified Code(s): J18.9 - Pneumonia, unspecified organism (2) Anxiety Current Visit: No Status: Acute Assessment and plan: June 16. Continue scheduled Ativan (3) Atrial fibrillation with rapid ventricular response Current Visit: No Status: Acute Assessment and plan: June 16. Continue sotalol and diltiazem. We will continue to hold Coumadin and recheck INR in a.m. June 17. We will restart Coumadin June 20. Will recheck labs in a.m. June 21. We will recheck labs in a.m. (4) Hypomagnesemia Current Visit: No Status: Chronic Assessment and plan: June 16. Continue magnesium oxide. Magnesium level was normal today at 1.7. June 20. We will recheck labs in a.m. (5) Fall Current Visit: Yes Status: Acute Assessment and plan: June 18. Will order physical therapy and occupational therapy evaluations. She stated she wished to go to [facility] for rehabilitation therapy if possible prior to returning home. Qualifiers: Encounter type: initial encounter Qualified Code(s): W19.XXXA - Unspecified fall, initial encounter - Subjective Interval history: June 16. She has no new complaints and states she feels slightly better. June 17. She states she is more dyspneic and has a headache June 18. She had a fall earlier today as she was attempting to go from her bed to the bedside commode. She fell onto her left side hitting her hip and head. June 20. She has no new complaints. She is awaiting insurance approval to go to [facility]. June 21. She has no new complaints. She reports she was denied by insurance for [facility] placement. She intends to appeal the verdict. - Constitutional Vitals: Temp Pulse Resp BP Pulse Ox 97.6 F 70 16 115/78 96 06/21/16 11:05 06/21/16 11:05 06/21/16 11:05 06/21/16 11:05 06/21/16 11:05 Exam: She is resting comfortably in bed and appears in no acute distress. No wheezing or stridor is heard. Reviewed her medications and lab results. Internal Medicine: Result - Labs CBC & Chem 7: 06/17/16 05:18 06/15/16 06:20 - ABG Interpretation ABG results: PT/INR, D-dimer PT 15.9 Seconds (9.4-12.1) H D 06/17/16 05:18 Consult Discharge Plan - Plan Referrals: Kit Stern MD [Primary Care Provider] - 1 week
[2016-06-21] MEDS: *HR* Warfarin 1 MG TABLET PO SCH (17:57)
[2016-06-22] MEDS: *HR* LORazepam 1 MG TABLET PO SCH ×3 (02:42→14:59)
[2016-06-22 06:51] LABS: Basophils % 0.1 %; Eosinophils # 0.1 K/mcL (0.0-0.6); Eosinophils % 0.6 %; Hematocrit 33.6 % (35.3-44.9); Hemoglobin 10.6 g/dL (11.5-15.4); Immature Granulocytes % 1.1 % (0-4); Lymphocytes # 1.8 K/mcL (0.6-4.6); Mean Corpuscular HGB Conc 31.5 g/dL (31.6-35.5); Mean Corpuscular Hemoglobin 30.6 pg (28.0-33.3); Mean Corpuscular Volume 97.1 fL (83.0-100.0); Mean Platelet Volume 8.7 fL (9.4-12.4); Monocytes # 0.6 K/mcL (0.0-1.3); Neutrophils # 6.4 K/mcL (1.6-8.9); Platelet Count 251 K/mcL (140-400); Red Blood Count 3.46 M/mcL (3.82-4.97); Red Cell Distribution Width 15.3 % (11.5-14.5); Segmented Neutrophils % 71.2 %
[2016-06-22 07:04] LABS: INR 1.7; Prothrombin Time 18.3 Seconds (9.4-12.1)
[2016-06-22 07:14] LABS: BUN/Creatinine Ratio 22 (6-26); Blood Urea Nitrogen 14 mg/dL (7-20); Calcium 9.2 mg/dL (8.6-10.8); Carbon Dioxide 36 mEq/L (19-29); Chloride 99 mEq/L (98-109); Glucose 94 mg/dL (70-99); Magnesium 2.3 mg/dL (1.6-2.6); Osmolality,Calculated 294 (280-300); Potassium 4.6 mEq/L (3.5-4.5); Sodium 142 mEq/L (136-145); eGFR For African Americans > 60 (> 60); eGFR For Non-African Americans > 60 (> 60)
[2016-06-22] MEDS: Magnesium Oxide 400 MG TABLET PO SCH (07:34)
[2016-06-22] MEDS: PredniSONE 10 MG TABLET PO SCH ×2 (07:34→17:02)
[2016-06-22] MEDS: Cholecalciferol (D-3) 1,000 UNIT TABLET PO SCH (07:34)
[2016-06-22] MEDS: Multivit/Ca/Min/Fe/FA 1 TAB TABLET PO SCH (07:34)
[2016-06-22] MEDS: Diltiazem CD (24hr) 180 MG CAPSULE PO SCH (07:34)
[2016-06-22] MEDS: *HR* HYDROcodone/Acet 10/325 mg TABLET PO PRN ×2 (07:36→15:04)
[2016-06-22] MEDS: [UNRECOGNIZED DRUG - OTHER] PO SCH (07:39)
[2016-06-22] MEDS: Ondansetron ODT 4 MG TAB.RAPDIS SL PRN (08:54)
[2016-06-22] MEDS: Levalbuterol Neb 1.25 MG/3 ML IH PRN ×2 (10:15→15:23)
[2016-06-22] MEDS: Budesonide/Formoterol 160/4.5 MDI IH SCH (10:15)
[2016-06-22 13:59] VITALS: BP 95/56
--- NOTE | 2016-06-22 14:25 | Discharge Summary ---
Date of Encounter: 06/22/16 Time of Encounter: 14:15 - Discharge Diagnosis (1) Pneumonia Priority: Primary Status: Resolved Qualifiers: Pneumonia type: due to unspecified organism Laterality: left Lung location: lower lobe of lung Qualified Code(s): J18.9 - Pneumonia, unspecified organism (2) Anxiety Priority: Secondary Status: Chronic (3) Atrial fibrillation with rapid ventricular response Priority: Secondary Status: Acute (4) Hypomagnesemia Priority: Secondary Status: Resolved (5) Fall Priority: Secondary Status: Acute Qualifiers: Encounter type: initial encounter Qualified Code(s): W19.XXXA - Unspecified fall, initial encounter - Discharge Medications Home Medications: Melatonin 3 mg PO HS PRN 01/23/15 [History] Montelukast [Singulair] 10 mg PO DAILY #30 tablet 02/14/15 [Rx] Roflumilast [Daliresp] 500 mcg PO DAILY 09/17/15 [History] Ondansetron ODT [Zofran ODT] 4 mg SL Q6HR PRN #8 tab.rapdis 01/30/16 [Rx] Budesonide/Formoterol 160/4.5 [Symbicort 160/4.5] 2 puff IH BID 03/20/16 [ History] Cyclobenzaprine [Flexeril] 5 mg PO TID 03/20/16 [History] HYDROcodone/Acet 10/325 mg [[place] 10-325 mg] 1 tab PO Q6HR PRN 03/20/16 [History ] Warfarin Sodium 3 mg PO QPM 03/20/16 [History] Ergocalciferol (VITAMIN D2) [Vitamin D2 (50,000 UNIT)] 50,000 unit PO 2XW [History] Multivitamin [Multi-Day Vitamins] 1 tab PO DAILY 03/26/16 [History] Oxygen 1 each .ROUTE AD 03/26/16 [History] Atorvastatin [Lipitor] 10 mg PO HS 30 Days 03/31/16 [Rx] Diltiazem CD (24hr) [Cardizem CD] 360 mg PO DAILY 30 Days 03/31/16 [Rx] Sotalol [Betapace] 80 mg PO Q12H 30 Days 03/31/16 [Rx] Albuterol Sulfate [Albuterol Inhaler] 2 puff IH Q2HR PRN #0 inhaler 12/15/16 [Rx ] LORazepam [Ativan] 1.5 mg PO Q6H tablet 05/31/16 [Rx] Levalbuterol Neb [Xopenex Neb] 1.25 mg IH Q4HR PRN 30 Days 05/31/16 [Rx] Magnesium Oxide [Mag-Ox] 400 mg PO DAILY 30 Days 05/31/16 [Rx] Metoclopramide [Reglan] 5 mg PO BID tablet 05/31/16 [Rx] PredniSONE 10 mg PO BIDWM #60 tablet 06/09/16 [Rx] Allergies/Adverse Reactions: Allergies methyl salicylate Allergy (Verified 04/24/16 20:53) See Comments metronidazole [From Flagyl] Allergy (Verified 04/24/16 20:55) Hives orange juice [[place] Juice] Allergy (Verified 04/24/16 20:55) Swelling of Lip/Tongue/Throat sertraline [From Zoloft] Allergy (Verified 04/24/16 20:55) Agitated vancomycin Allergy (Verified 04/24/16 20:55) Vomiting fidaxomicin [From Dificid] Adverse Reaction (Verified 04/24/16 20:55) Vomiting ketorolac [From Toradol] Adverse Reaction (Verified 05/24/16 17:43) Vomiting menthol Adverse Reaction (Verified 04/24/16 20:55) Difficulty Breathing meperidine [From Demerol] Adverse Reaction (Verified 04/24/16 20:55) Vomiting ropinirole [From Requip] Adverse Reaction (Verified 04/24/16 20:55) Vomiting simvastatin Adverse Reaction (Verified 04/24/16 20:55) Muscle Pain tramadol Adverse Reaction (Verified 04/24/16 20:55) Vomiting zolmitriptan Adverse Reaction (Verified 04/24/16 20:55) Agitated Date of admission: 06/14/16 14:40 Primary care physician: Kit Stern MD Consults: 06/18/16 10:15 Consult to Occupational Therapy [CONS] Routine Comment: Evaluate, develop and implement POC Consult to Physical Therapy [CONS] Routine Comment: Evaluate, develop and implement POC - Patient Status Disposition: Home, Self-Care Condition: Fair Overall status at discharge: patient is progressing back to baseline - Discharge Instructions Follow Up With: Kit Stern MD [Primary Care Provider] - 1 week - Diet and Activity Activity: resume usual activities as tolerated, wear oxygen at all times Diet: advance to your usual diet Hospital course: Ms. Stern is a 60 year old female who came to emergency room complaining of 3 day history of vomiting with crampy abdominal pain and a cough productive of greenish sputum. She also had complaints of a headache. She denied diarrhea. Her evaluation showed possible left lower lobe retrocardiac pneumonia. [facility] was [facility] to [facility] for ongoing care needs. Initial orders were written by the emergency room physician. I saw her on June 15 and performed a history and physical. She was treated with Rocephin and Zithromax for the pneumonia. I added lactobacillus. She had good clinical response and antibiotics were discontinued on June 18. She remained afebrile and asymptomatic. She had slow improvement in her ability to ambulate and overall stamina. Physical therapy and occupational therapy evaluations were done with ongoing interventions. She requested to go to [facility] for further therapy but insurance denied this. On June 22 she was stable for discharge home. She will follow with Dr. Kit Stern within 1 week. - Time Spent with Patient Total time spent providing and/or coordinating discharge services: - Constitutional Vitals: Temp Pulse Resp BP Pulse Ox 98.7 F 72 18 95/56 96 06/22/16 13:58 06/22/16 13:58 06/22/16 13:58 06/22/16 13:58 06/22/16 13:58
--- NOTE | 2016-06-22 15:31 | Physician Discharge Referral ---
Home Health/Hosp Referral Info Transfer to: Home Health Attending Provider: Gildardo Provider in Charge Post Discharge: PCP (Kit Stern M.D.) - Diagnosis (1) Pneumonia Priority: Primary Status: Resolved (2) Anxiety Priority: Secondary Status: Chronic (3) Atrial fibrillation with rapid ventricular response Priority: Secondary Status: Acute (4) Hypomagnesemia Priority: Secondary Status: Resolved (5) Fall Priority: Secondary Status: Acute - Respiratory Orders Oxygen / L per min (2 l/m by MO 07/01) Smoking Cessation: Smoking cessation has been advised. For more information, call the [place] Tobacco Quit Line at 4-624-XRDL-NOW. - Diet/Nutrition Diet/Nutrition Orders: Regular - Activity Activity Orders: Ambulate - Services Needed Following services are medically necessary services: Nursing, Home Health Aide, Physical Therapy, Occupational Therapy - Transfer Medications Home Medications: Melatonin 3 mg PO HS PRN 01/23/15 [History] Montelukast [Singulair] 10 mg PO DAILY #30 tablet 02/14/15 [Rx] Roflumilast [Daliresp] 500 mcg PO DAILY 09/17/15 [History] Ondansetron ODT [Zofran ODT] 4 mg SL Q6HR PRN #8 tab.rapdis 01/30/16 [Rx] Budesonide/Formoterol 160/4.5 [Symbicort 160/4.5] 2 puff IH BID 03/20/16 [ History] Cyclobenzaprine [Flexeril] 5 mg PO TID 03/20/16 [History] HYDROcodone/Acet 10/325 mg [[place] 10-325 mg] 1 tab PO Q6HR PRN 03/20/16 [History ] Warfarin Sodium 3 mg PO QPM 03/20/16 [History] Ergocalciferol (VITAMIN D2) [Vitamin D2 (50,000 UNIT)] 50,000 unit PO 2XW [History] Multivitamin [Multi-Day Vitamins] 1 tab PO DAILY 03/26/16 [History] Oxygen 1 each .ROUTE AD 03/26/16 [History] Atorvastatin [Lipitor] 10 mg PO HS 30 Days 03/31/16 [Rx] Diltiazem CD (24hr) [Cardizem CD] 360 mg PO DAILY 30 Days 03/31/16 [Rx] Sotalol [Betapace] 80 mg PO Q12H 30 Days 03/31/16 [Rx] Albuterol Sulfate [Albuterol Inhaler] 2 puff IH Q2HR PRN #0 inhaler 05/31/16 [Rx ] LORazepam [Ativan] 1.5 mg PO Q6H tablet 05/31/16 [Rx] Levalbuterol Neb [Xopenex Neb] 1.25 mg IH Q4HR PRN 30 Days 05/31/16 [Rx] Magnesium Oxide [Mag-Ox] 400 mg PO DAILY 30 Days 05/31/16 [Rx] Metoclopramide [Reglan] 5 mg PO BID tablet 05/31/16 [Rx] PredniSONE 10 mg PO BIDWM #60 tablet 06/09/16 [Rx] Allergies/Adverse Reactions: Allergies methyl salicylate Allergy (Verified 04/24/16 20:53) See Comments metronidazole [From Flagyl] Allergy (Verified 04/24/16 20:55) Hives orange juice [[place] Juice] Allergy (Verified 04/24/16 20:55) Swelling of Lip/Tongue/Throat sertraline [From Zoloft] Allergy (Verified 04/24/16 20:55) Agitated vancomycin Allergy (Verified 04/24/16 20:55) Vomiting fidaxomicin [From Dificid] Adverse Reaction (Verified 04/24/16 20:55) Vomiting ketorolac [From Toradol] Adverse Reaction (Verified 05/24/16 17:43) Vomiting menthol Adverse Reaction (Verified 04/24/16 20:55) Difficulty Breathing meperidine [From Demerol] Adverse Reaction (Verified 04/24/16 20:55) Vomiting ropinirole [From Requip] Adverse Reaction (Verified 04/24/16 20:55) Vomiting simvastatin Adverse Reaction (Verified 04/24/16 20:55) Muscle Pain tramadol Adverse Reaction (Verified 04/24/16 20:55) Vomiting zolmitriptan Adverse Reaction (Verified 04/24/16 20:55) Agitated Certification: Further, I certify that my clinical findings support that this patient is homebound (i.e. absences from home require considerable and taxing effort and are for medical reasons or confucianism services or infrequently or short duration when for other reasons) because: Homebound Reason: Leaving home requires considerable and taxing effort due to condition (End stage COPD) Attestation: My signature below is to certify that this patient is under my care and that I, or nurse practitioner, or a physician's assistant laboratory director working with me, has a face-to -face encounter with this patient.
[2016-06-22] MEDS: *HR* Warfarin 1 MG TABLET PO SCH (17:02)
== END 2016-06-22 19:32 | disposition home or self-care (01) ==
LOC: INPPIK 12:06 → EMEROOPIK 12:06 → INPPIK 15:19
PROVIDERS: ADMIT Internal Medicine; ATTEND Internal Medicine

== ENCOUNTER 2016-08-06 15:28 | Observation (INO) ==
--- NOTE | 2016-08-06 15:39 | Emergency Department Note ---
Disposition Clinical Impression: Acute exacerbation of chronic obstructive airways disease Disposition: Admitted As Inpatient Referrals: Kit Stern MD [Primary Care Provider] - Forms: ED Satisfaction Letter SOB HPI - General Chief Complaint: ED Shortness of Breath/Dyspnea Stated Complaint: difficulty breathing Time Seen by Provider: 08/06/16 15:33 Source: patient Mode of arrival: private vehicle Limitations: no limitations Nursing Notes Reviewed: Yes Vital Signs Reviewed: Yes - History of Present Illness The patient relates she has had increased shortness of breath with chest tightness for about 2-3 days. She states she thought was secondary to the weather change she is continued with the dyspnea. Her cough is not productive of thick yellow phlegm. She denies definite fever and has had some chills. She has had some nausea without vomiting. She has diarrhea but says her colostomy output is looser. Dressing and lower extremity swelling, immobilization or injury. She cramping. She states she has been exposed to "everyone" at home with upper respiratory complaints. She is on prednisone 10 mg a day chronically and had her last burst of prednisone about 3 weeks ago. She does feel that she has had similar symptoms in the past with her COPD exacerbations. She does have some generalized weakness but has not been presyncopal. She denies headache, sore throat or neck pain. He has been alert with normal mental status. She reports taking all of her routine medicines and aerosols. Pt Subjective Complaint: shortness of breath Onset (ago): day(s) Context: recent illness Severity: moderate Consistency/Duration: gradually worsening Improves with: oxygen, bronchodilators Worsens with: movement, coughing Known history of: COPD Associated symptoms: Reports: chest pain, pain with inspiration, cough, wheezing , sputum production. Denies: fever, orthopnea, lower extremity pain, polyuria, polydipsia, parasthesias, palpitations, hemoptysis, diaphoresis, nausea/vomiting , syncope, abdominal pain, rash Treatment prior to arrival: oxygen, bronchodilator Cough present: Yes Cough Description: Voluntary, Productive, Moist, Rattling Cough Frequency: Intermittent Sputum production: Yes Sputum Amount: Moderate Sputum Color: Yellow - Related Data Home oxygen amount: 3 liters Home Medications Medication Instructions Recorded Confirmed Melatonin 3 mg PO HS PRN 01/23/15 06/14/16 Roflumilast [Daliresp] 500 mcg PO DAILY 09/17/15 06/14/16 Budesonide/Formoterol 160/4.5 2 puff IH BID 03/20/16 06/14/16 [Symbicort 160/4.5] Cyclobenzaprine [Flexeril] 5 mg PO TID 03/20/16 06/14/16 HYDROcodone/Acet 10/325 mg [[place] 1 tab PO Q6HR PRN 03/20/16 06/14/16 10-325 mg] Warfarin Sodium 3 mg PO QPM 03/20/16 06/14/16 Ergocalciferol (VITAMIN D2) 50,000 unit PO 2XW 03/26/16 06/14/16 [Vitamin D2 (50,000 UNIT)] Multivitamin [Multi-Day Vitamins] 1 tab PO DAILY 03/26/16 06/14/16 Oxygen 1 each .ROUTE AD 03/26/16 06/14/16 Previous Rx's Medication Instructions Recorded Montelukast [Singulair] 10 mg PO DAILY #30 tablet 02/14/15 Ondansetron ODT [Zofran ODT] 4 mg SL Q6HR PRN #8 tab.rapdis 01/30/16 Atorvastatin [Lipitor] 10 mg PO HS 30 Days 03/31/16 Diltiazem CD (24hr) [Cardizem CD] 360 mg PO DAILY 30 Days 03/31/16 Sotalol [Betapace] 80 mg PO Q12H 30 Days 03/31/16 Albuterol Sulfate [Albuterol 2 puff IH Q2HR PRN #0 inhaler 05/31/16 Inhaler] LORazepam [Ativan] 1.5 mg PO Q6H tablet 05/31/16 Levalbuterol Neb [Xopenex Neb] 1.25 mg IH Q4HR PRN 30 Days 05/31/16 Magnesium Oxide [Mag-Ox] 400 mg PO DAILY 30 Days 05/31/16 Metoclopramide [Reglan] 5 mg PO BID tablet 05/31/16 PredniSONE 10 mg PO BIDWM #60 tablet 06/09/16 Allergies Allergy/AdvReac Type Severity Reaction Status Date / Time methyl salicylate Allergy See Verified 08/06/16 15:30 Comments metronidazole [From Flagyl] Allergy Hives Verified 08/06/16 15:30 orange juice [[place] Juice] Allergy Swelling Verified 08/06/16 15:30 of Lip/Tongue/Throat sertraline [From Zoloft] Allergy Agitated Verified 08/06/16 15:30 vancomycin Allergy Vomiting Verified 08/06/16 15:30 fidaxomicin [From Dificid] AdvReac Vomiting Verified 08/06/16 15:30 ketorolac [From Toradol] AdvReac Vomiting Verified 08/06/16 15:30 menthol AdvReac Difficulty Verified 08/06/16 15:30 Breathing meperidine [From Demerol] AdvReac Vomiting Verified 08/06/16 15:30 ropinirole [From Requip] AdvReac Vomiting Verified 08/06/16 15:30 simvastatin AdvReac Muscle Pain Verified 08/06/16 15:30 tramadol AdvReac Vomiting Verified 08/06/16 15:30 zolmitriptan AdvReac Agitated Verified 08/06/16 15:30 All systems ED: reviewed and negative except as stated. Past Medical History - Past Medical History Attestation: Yes The following information was validated with the patient. Source: patient, old records reviewed, nursing notes reviewed Medical history: Reports: asthma, atrial fibrillation, COPD, DVT, GERD, hyperlipidemia, hypertension, renal disease, SVT, thyroid disease Surgical history: Reports: cataract, cholecystectomy, colostomy, herniorrhaphy Psychiatric history: Reports: anxiety, depression, panic disorder RETAIL ACCOUNT MANAGER history: Reports: no RETAIL ACCOUNT MANAGER history - Social History Smoking Status: Former smoker Smokeless Tobacco Status: No Alcohol use: Reports: none Drug use: Reports: none Physical Exam - General Limitations: no limitations General appearance: alert, in distress - Head Head exam: atraumatic, normocephalic, normal inspection - Eye Eye exam: Present: normal appearance, PERRL, EOMI - ENT ENT exam: normal exam, normal oropharynx, mucous membranes moist - Neck Neck exam: Present: normal inspection, full ROM, trachea midline. Absent: tenderness, lymphadenopathy - Chest Chest inspection: Present: normal inspection, symmetric chest wall rise. Absent : tenderness - Respiratory Respiratory exam: Present: respiratory distress, wheezes, prolonged expiratory phase. Absent: accessory muscle use - Cardiovascular Cardiovascular exam: Present: regular rate, normal rhythm, normal heart sounds. Absent: tachycardia - Abdominal Exam Abdominal exam: Present: soft, Non-Tender, normal bowel sounds. Absent: tenderness, distention, guarding, rebound, rigidity - Extremities Exam Extremities exam: Present: normal inspection, full ROM, normal capillary refill. Absent: tenderness, pedal edema, calf tenderness - Expanded Lower Extremity Exam Neurovascular/Tendon exam: Present: normal capillary refill. Absent: motor deficit, sensory deficit, tendon deficit Gait: not tested/not observed - Back Exam Back exam: Present: normal inspection, full ROM. Absent: tenderness, vertebral tenderness - Neurological Exam Neurological exam: Present: alert, oriented X3 - Psychiatric Psychiatric exam: Present: normal affect, normal mood - Skin Skin exam: Present: warm, dry, intact, normal color. Absent: rash, cyanosis, diaphoresis, pallor Course Course Narrative: 1644: There has been discussed with Dr. Ewing. He is agreeable to having this patient admitted to an observation status. Orders are obtained. Vital Signs Temperature 98 F 08/06/16 15:30 Pulse Rate 87 08/06/16 15:30 Respiratory Rate 16 08/06/16 15:30 Blood Pressure 143/93 08/06/16 15:30 O2 Sat by Pulse Oximetry 95 08/06/16 15:30 Temperature 98 F 08/06/16 15:38 Pulse Rate 77 08/06/16 16:37 Respiratory Rate 14 08/06/16 16:37 Blood Pressure 131/78 08/06/16 16:37 O2 Sat by Pulse Oximetry 94 L 08/06/16 16:37 Oxygen Delivery Oxygen Delivery Nasal Cannula Shortness of Breath/Dyspnea - Differential Diagnosis Likely: acute exacerbation of chronic obstructive airways disease, pneumonia, asthma with exacerbation - Medical Records Medical records reviewed: Yes I reviewed the patient's medical records. - Lab Data Lab results reviewed: Yes I reviewed the patient's lab results. Result diagrams: 08/06/16 16:06 08/06/16 16:06 Lab Results 08/06/16 08/06/16 08/06/16 Range/Units 16:06 16:06 16:06 WBC 13.4 H (4.3-11.1) K/mcL RBC 4.66 (3.82-4.97) M/mcL Hgb 14.2 (11.5-15.4) g/dL Hct 43.5 (35.3-44.9) % MCV 93.3 (83.0-100.0) fL MCH 30.5 (28.0-33.3) pg MCHC 32.6 (31.6-35.5) g/dL RDW 15.6 H (11.5-14.5) % Plt Count 344 (140-400) K/mcL MPV 8.9 L (9.4-12.4) fL Immature Gran % 1.9 (0-4) % Seg Neutrophils % 72.7 % Lymphocytes % 18.2 % Monocytes % 6.6 % Eosinophils % 0.2 % Basophils % 0.4 % Neutrophils # 9.7 H (1.6-8.9) K/mcL Lymphocytes # 2.4 (0.6-4.6) K/mcL Monocytes # 0.9 (0.0-1.3) K/mcL Eosinophils # 0.0 (0.0-0.6) K/mcL Basophils # 0.1 (0.0-0.2) K/mcL PT (9.4-12.1) Seconds INR APTT (26.0-36.0) Seconds Sodium 141 (136-145) mEq/L Potassium 4.0 (3.5-4.5) mEq/L Chloride 101 (98-109) mEq/L Carbon Dioxide 26 (19-29) mEq/L BUN 19 (7-20) mg/dL Creatinine 0.86 (0.57-1.11) mg/dL Est GFR ( Amer) > 60 (> 60) Est GFR (Non-Af Amer) > 60 (> 60) BUN/Creatinine Ratio 22 (6-26) Glucose 99 (70-99) mg/dL Calculated Osmolality 294 (280-300) Calcium 9.7 (8.6-10.8) mg/dL Troponin I 0.00 (0-0.03) ng/mL 08/06/16 Range/Units 16:06 WBC (4.3-11.1) K/mcL RBC (3.82-4.97) M/mcL Hgb (11.5-15.4) g/dL Hct (35.3-44.9) % MCV (83.0-100.0) fL MCH (28.0-33.3) pg MCHC (31.6-35.5) g/dL RDW (11.5-14.5) % Plt Count (140-400) K/mcL MPV (9.4-12.4) fL Immature Gran % (0-4) % Seg Neutrophils % % Lymphocytes % % Monocytes % % Eosinophils % % Basophils % % Neutrophils # (1.6-8.9) K/mcL Lymphocytes # (0.6-4.6) K/mcL Monocytes # (0.0-1.3) K/mcL Eosinophils # (0.0-0.6) K/mcL Basophils # (0.0-0.2) K/mcL PT 22.9 H (9.4-12.1) Seconds INR 2.1 APTT 32.2 (26.0-36.0) Seconds Sodium (136-145) mEq/L Potassium (3.5-4.5) mEq/L Chloride (98-109) mEq/L Carbon Dioxide (19-29) mEq/L BUN (7-20) mg/dL Creatinine (0.57-1.11) mg/dL Est GFR ( Amer) (> 60) Est GFR (Non-Af Amer) (> 60) BUN/Creatinine Ratio (6-26) Glucose (70-99) mg/dL Calculated Osmolality (280-300) Calcium (8.6-10.8) mg/dL Troponin I (0-0.03) ng/mL - Radiology Data Radiology results reviewed: Yes I reviewed the patient's radiology results. Single view chest x-ray is performed. This does not demonstrate evidence for infiltrate, effusion, pneumothorax, foreign body or heart failure. The cardiac silhouette is normal. Patient demonstrates hyperexpansion consistent with COPD. I do not see abnormality to the osseous structures of the chest. This is on my interpretation. Impressions Chest X-Ray 08/06/16 15:39 IMPRESSION: No acute cardiopulmonary disease. D/ / Dustin Kimble MD / Dustin Kimble MD Interpreting Provider: Dustin Kimble MD - EKG Data EKG attestation: Yes I reviewed and interpreted this EKG. EKG shows normal: Reports: sinus rhythm, axis, intervals, ST-T waves Rate: Reports: normal (81) [place]/QRS: Reports: IVCD, LAHB/LAFB QRS morphology: Reports: poor R-wave progression Interpretation: Reports: no acute changes (Consistent with chronic pulmonary disease.)
[2016-08-06] MEDS ORDERED: Levofloxacin 500 MG/100 ML 500 MG/100 ML BAG IVPB ONE (15:40)
[2016-08-06] MEDS ORDERED: Ipratropium/Albuterol Neb 3 ML IH ONE (15:40)
[2016-08-06] MEDS ORDERED: 0.9 % Sodium Chloride 1,000 ML IVC SCH ×2 (15:45→17:54)
[2016-08-06 16:13] LABS: Basophils # 0.1 K/mcL (0.0-0.2); Basophils % 0.4 %; Eosinophils % 0.2 %; Hematocrit 43.5 % (35.3-44.9); Hemoglobin 14.2 g/dL (11.5-15.4); Immature Granulocytes % 1.9 % (0-4); Lymphocytes # 2.4 K/mcL (0.6-4.6); Lymphocytes % 18.2 %; Mean Corpuscular HGB Conc 32.6 g/dL (31.6-35.5); Mean Corpuscular Hemoglobin 30.5 pg (28.0-33.3); Mean Corpuscular Volume 93.3 fL (83.0-100.0); Mean Platelet Volume 8.9 fL (9.4-12.4); Monocytes # 0.9 K/mcL (0.0-1.3); Monocytes % 6.6 %; Neutrophils # 9.7 K/mcL (1.6-8.9); Platelet Count 344 K/mcL (140-400); Red Blood Count 4.66 M/mcL (3.82-4.97); Red Cell Distribution Width 15.6 % (11.5-14.5); Segmented Neutrophils % 72.7 %
[2016-08-06 16:19] LABS: INR 2.1; Prothrombin Time 22.9 Seconds (9.4-12.1)
[2016-08-06 16:21] LABS: Activated Partial Thrombo Time 32.2 Seconds (26.0-36.0)
[2016-08-06 16:28] LABS: BUN/Creatinine Ratio 22 (6-26); Blood Urea Nitrogen 19 mg/dL (7-20); Calcium 9.7 mg/dL (8.6-10.8); Carbon Dioxide 26 mEq/L (19-29); Chloride 101 mEq/L (98-109); Glucose 99 mg/dL (70-99); Osmolality,Calculated 294 (280-300); Sodium 141 mEq/L (136-145); eGFR For African Americans > 60 (> 60); eGFR For Non-African Americans > 60 (> 60)
[2016-08-06] MEDS ORDERED: Ondansetron 4 MG/2 ML VIAL IVP ONE ×2 (17:53→17:54)
[2016-08-06] MEDS ORDERED: Ondansetron 4 MG/2 ML VIAL IVP PRN (17:54)
[2016-08-06] MEDS ORDERED: MOM Conc 10 ML UD.LIQ PO PRN (17:54)
[2016-08-06] MEDS ORDERED: Acetaminophen 325 MG TABLET PO PRN (17:54)
[2016-08-06] MEDS ORDERED: Naloxone 0.4 MG/ML INJ IVP PRN (17:54)
--- NOTE | 2016-08-06 18:51 | Internal Med History&Physical ---
Date of Encounter: 08/06/16 Time of Encounter: 18:30 Assessment and Plan (1) Acute exacerbation of chronic obstructive airways disease Current visit: Yes Status: Acute She has been started on Levaquin. Her WBC was elevated at 13.4 K. Will add lactobacillus. (2) Anxiety Current visit: No Status: Chronic We will restart Ativan at dose of 1 mg every 6 hours. (3) History of DVT (deep vein thrombosis) Current visit: No Status: Chronic Continue present dose Coumadin. Internal Medicine - H&P: HPI Chief complaint: Dyspnea Admitted From: Home Plans for Post Hospital Care: Home History of present illness: Ms. Stern is a 60 year old female who came to emergency room stating she had increasing dyspnea over the past 3-4 days. She had a cough productive of yellow mucus. She reports completing a seven-day course of Keflex the day prior to onset of increasing dyspnea. She reports having run out of Ativan 5 days ago. She was evaluated in emergency room and felt to have exacerbation of COPD. She was admitted to [facility] floor for ongoing care needs. Her respiratory history is significant for having smoked from age [age] up to 3 packs per day. She had pulmonary function test done 09/15/2015 which showed very severe COPD. She follows with Dr. Jarvis at [facility]. She wears oxygen 24/7 at 2 L/m. She has had negative workup for sleep apnea in the past. She considered lung transplant at one time for COPD but decided against that. She is been hospitalized many times at [facility] the past few years with dyspnea. Her most recent chest CT was 04/15/2016 which showed no acute abnormalities. Past Med Surg Social Fam HX - Past Medical History Medical history: asthma, atrial fibrillation, COPD, DVT, GERD, hyperlipidemia, hypertension, renal disease, SVT, thyroid disease Psychiatric history: anxiety, depression, panic disorder - Past Surgical History Surgical History: cataract, cholecystectomy, colostomy, herniorrhaphy - Social History Smoking Status: Former smoker Smokeless Tobacco Status: No Alcohol use: none Drug use: none - Family History Father Family Member Ethnicity: Non- Living Status: Hx Family Cardiac Disorders: Yes ( of [place] at 58) Internal Medicine - H&P: Meds Melatonin 3 mg PO HS PRN 01/23/15 [History] Montelukast [Singulair] 10 mg PO DAILY #30 tablet 02/14/15 [Rx] Roflumilast [Daliresp] 500 mcg PO DAILY 09/17/15 [History] Ondansetron ODT [Zofran ODT] 4 mg SL Q6HR PRN #8 tab.rapdis 01/30/16 [Rx] Budesonide/Formoterol 160/4.5 [Symbicort 160/4.5] 2 puff IH BID 03/20/16 [ History] Cyclobenzaprine [Flexeril] 5 mg PO TID 03/20/16 [History] HYDROcodone/Acet 10/325 mg [Foster 10-325 mg] 1 tab PO Q6HR PRN 03/20/16 [History ] Warfarin Sodium 3 mg PO QPM 03/20/16 [History] Ergocalciferol (VITAMIN D2) [Vitamin D2 (50,000 UNIT)] 50,000 unit PO 2XW [History] Multivitamin [Multi-Day Vitamins] 1 tab PO DAILY 03/26/16 [History] Oxygen 1 each .ROUTE AD 03/26/16 [History] Atorvastatin [Lipitor] 10 mg PO HS 30 Days 03/31/16 [Rx] Diltiazem CD (24hr) [Cardizem CD] 360 mg PO DAILY 30 Days 03/31/16 [Rx] Sotalol [Betapace] 80 mg PO Q12H 30 Days 03/31/16 [Rx] Albuterol Sulfate [Albuterol Inhaler] 2 puff IH Q2HR PRN #0 inhaler 05/31/16 [Rx ] LORazepam [Ativan] 1.5 mg PO Q6H tablet 05/31/16 [Rx] Levalbuterol Neb [Xopenex Neb] 1.25 mg IH Q4HR PRN 30 Days 05/31/16 [Rx] Magnesium Oxide [Mag-Ox] 400 mg PO DAILY 30 Days 05/31/16 [Rx] Metoclopramide [Reglan] 5 mg PO BID tablet 05/31/16 [Rx] PredniSONE 10 mg PO BIDWM #60 tablet 06/09/16 [Rx] Allergies methyl salicylate Allergy (Verified 08/06/16 15:30) See Comments metronidazole [From Flagyl] Allergy (Verified 08/06/16 15:30) Hives orange juice [Hand Juice] Allergy (Verified 08/06/16 15:30) Swelling of Lip/Tongue/Throat sertraline [From Zoloft] Allergy (Verified 08/06/16 15:30) Agitated vancomycin Allergy (Verified 08/06/16 15:30) Vomiting fidaxomicin [From Dificid] Adverse Reaction (Verified 08/06/16 15:30) Vomiting ketorolac [From Toradol] Adverse Reaction (Verified 08/06/16 15:30) Vomiting menthol Adverse Reaction (Verified 08/06/16 15:30) Difficulty Breathing meperidine [From Demerol] Adverse Reaction (Verified 08/06/16 15:30) Vomiting ropinirole [From Requip] Adverse Reaction (Verified 08/06/16 15:30) Vomiting simvastatin Adverse Reaction (Verified 08/06/16 15:30) Muscle Pain tramadol Adverse Reaction (Verified 08/06/16 15:30) Vomiting zolmitriptan Adverse Reaction (Verified 08/06/16 15:30) Agitated All Systems PM: A 10-system review of systems was performed and is negative for pertinent findings except as documented above in the HPI. Review of systems: Review of systems from the May 2016 [facility] hospitalization were reviewed and revised as below. Gen.: Her weight has increased from approximately 150 pounds June 2015 to present weight of approximately 165 pounds. Cardiovascular: She has paroxysmal atrial fibrillation and hypertension. She was hospitalized for this at [facility] March 2016 and was initially placed on Rythmol but later changed to sotalol. She had DVT with pulmonary embolus July 2014 and had IVC filter placed at [facility]. She was initially placed on Coumadin but this was discontinued after approximately 3 months and she was placed on Xarelto. She developed nosebleeds and other complications so was restarted back on Coumadin after a few weeks. She had another pulmonary embolism February 2015 at [facility] after bowel surgery.She had a limited echocardiogram done 03/21/2016 which showed normal LV size. The LVEF was 55%. There was mild diastolic dysfunction reported on an September 2015 echo but no significant valvular abnormality seen. Left atrial size was normal at 3.30 cm. She had a heart catheter 2008 and an exercise stress test June 2012 which were negative. Respiratory: As per history of present illness GI: She is status post cholecystectomy. She had polyps seen on a 2005 colonoscopy but has not had follow-up procedure done. She had an EGD approximately 2006. She denies other liver or exocrine pancreas disorders. She had segmental resection of colon secondary to diverticulitis with perforation February 2015 at [facility]. Her postop course was complicated with pulmonary embolism. She had development of a colostomy and has been told she will not have a takedown procedure because of her severe COPD. : She had hematuria in the past that resolved. She denies other kidney or bladder disorders. She has had tubal ligation. Endocrine: She has hyperlipidemia but no known diabetes or thyroid disease. She has been diagnosed with vitamin D deficiency. Neurologic: No history of large distribution strokes or seizures. Hematology/oncology: She has had anemia and B12 and iron deficiency past. She has not had documented internal malignancies. Psychiatric: She has anxiety and depression but no other mental health issues Musk skeletal: She has DJD and osteoporosis but no known gout. - Constitutional Vitals: Temp Pulse Resp BP Pulse Ox 98 F 79 20 136/95 91 L 08/06/16 15:38 08/06/16 17:17 08/06/16 17:17 08/06/16 17:17 08/06/16 17:17 Exam: Gen.: She is a well-developed well-nourished female who appears in minimal distress at present time HEENT: Head is atraumatic and normocephalic. Eyes: EOMI. There is no scleral icterus. She has xanthelasma of the medial eyelid area bilaterally. Mouth: Mucosa is moist. Neck: Supple and nontender. There is no thyromegaly or adenopathy noted. Heart: Regular without murmurs gallops or ectopics. Lungs: No wheezes or crackles are heard. Abdomen: Soft and nontender. No masses or guarding are noted. She has an ostomy in the left lower quadrant Extremities: There is no cyanosis edema or clubbing noted. Dorsalis pedis and posterior tibial pulses are trace palpable bilaterally. Neurologic: Mental status: She is talkative and a good historian. Cranial nerves: Smile is symmetric. Forehead wrinkles bilaterally. Tongue protrudes midline. EOMI. Motor: There is no pronator drift. Cerebellar: Finger to nose is intact bilaterally. Skin: Warm and dry Internal Med - H&P Results - Labs CBC & Chem 7: 08/06/16 16:06 08/06/16 16:06
[2016-08-06] MEDS: Albuterol 2.5 MG/3 ML NEBULIZER IH PRN (19:10)
[2016-08-06] MEDS: Lactobacillus 1 EACH CAP.SPRINK PO SCH (21:36)
[2016-08-06] MEDS: *HR* LORazepam 1 MG TABLET PO SCH (21:37)
[2016-08-06] MEDS: *HR* HYDROcodone/Acet 10/325 mg TABLET PO PRN (21:37)
[2016-08-06] MEDS: Ipratropium/Albuterol Neb 3 ML IH SCH (22:08)
[2016-08-07] MEDS: Budesonide/Formoterol 160/4.5 MDI IH SCH ×3 (00:59→22:46)
[2016-08-07] MEDS: Ipratropium/Albuterol Neb 3 ML IH SCH ×4 (04:32→22:46)
[2016-08-07 06:06] LABS: Basophils % 0.2 %; Hematocrit 39.9 % (35.3-44.9); Hemoglobin 12.9 g/dL (11.5-15.4); Immature Granulocytes % 1.9 % (0-4); Lymphocytes # 0.9 K/mcL (0.6-4.6); Lymphocytes % 10.4 %; Mean Corpuscular HGB Conc 32.3 g/dL (31.6-35.5); Mean Corpuscular Hemoglobin 30.4 pg (28.0-33.3); Mean Corpuscular Volume 93.9 fL (83.0-100.0); Mean Platelet Volume 9.3 fL (9.4-12.4); Monocytes # 0.2 K/mcL (0.0-1.3); Monocytes % 1.8 %; Neutrophils # 7.5 K/mcL (1.6-8.9); Platelet Count 285 K/mcL (140-400); Red Blood Count 4.25 M/mcL (3.82-4.97); Red Cell Distribution Width 15.3 % (11.5-14.5); Segmented Neutrophils % 85.7 %
[2016-08-07] MEDS: *HR* LORazepam 1 MG TABLET PO SCH ×4 (06:09→20:33)
[2016-08-07] MEDS: *HR* HYDROcodone/Acet 10/325 mg TABLET PO PRN ×2 (06:19→20:34)
[2016-08-07] MEDS: Diltiazem CD (24hr) 180 MG CAPSULE PO SCH (09:05)
[2016-08-07] MEDS: PredniSONE 20 MG TABLET PO SCH ×2 (09:05→16:33)
[2016-08-07] MEDS: Lactobacillus 1 EACH CAP.SPRINK PO SCH ×2 (09:06→20:33)
[2016-08-07] MEDS: Levofloxacin 500 MG/100 ML 500 MG/100 ML BAG IVPB SCH (09:06)
--- NOTE | 2016-08-07 10:48 | Internal Med Progress Note ---
Date of Encounter: 08/07/16 Time of Encounter: 10:40 - Assessment and plan (1) Acute exacerbation of chronic obstructive airways disease Current Visit: Yes Status: Acute Assessment and plan: August 07. Continue Levaquin and lactobacillus (2) Anxiety Current Visit: No Status: Chronic Assessment and plan: August 07. Continue Ativan at present dose (3) History of DVT (deep vein thrombosis) Current Visit: No Status: Chronic Assessment and plan: August 07. Continue Coumadin - Subjective Interval history: August 07. She has no new complaints. She feels improved but not back to her baseline.. - Constitutional Vitals: Temp Pulse Resp BP Pulse Ox 97.8 F 78 18 126/85 95 08/07/16 07:32 08/07/16 07:32 08/07/16 07:32 08/07/16 07:32 08/07/16 07:32 Exam: She is resting comfortably in bed. She has no audible wheezing anteriorly. Her affect is cheerful. She appears slightly anxious. I reviewed her medications and lab results. Internal Medicine: Result - Labs CBC & Chem 7: 08/07/16 04:30 08/06/16 16:06 Labs: Short CBC 08/07/16 Range/Units 04:30 WBC 8.8 (4.3-11.1) K/mcL Hgb 12.9 (11.5-15.4) g/dL Hct 39.9 (35.3-44.9) % Plt Count 285 (140-400) K/mcL Neutrophils # 7.5 (1.6-8.9) K/mcL - ABG Interpretation ABG results: PT/INR, D-dimer PT 22.9 Seconds (9.4-12.1) H 08/06/16 16:06 Consult Discharge Plan - Plan Referrals: Kit Stern MD [Primary Care Provider] - 1 week
[2016-08-07] MEDS ORDERED: Ondansetron 4 MG/2 ML VIAL IVP SCH (16:00)
[2016-08-07] MEDS ORDERED: Metoclopramide 10 MG/10 ML UD.LIQ PO PRN (17:43)
[2016-08-07] MEDS ORDERED: Ondansetron 4 MG/2 ML VIAL IVP PRN (17:45)
--- NOTE | 2016-08-07 18:15 | Electrocardiograph Report ---
[address] [place], [place] [address] Test Date: 2016-08-06 Pat Name: Meg Stern Department: [id number] Room: [facility] Gender: F [employer] Manager: : [id number] Requested By: Dwaine Mcnair Order Number: [id number] Reading MD: Maggie Reyes Measurements Intervals [place] Rate: 81 P: -75 CA: 167 QRS: -65 QRSD: 88 T: 44 QT: 377 QTc: 414 Interpretive Statements SINUS RHYTHM LOW QRS VOLTAGE IN PRECORDIAL LEADS PATTERN CONSISTENT WITH PULMONARY DISEASE POSSIBLE RIGHT VENTRICULAR CONDUCTION DELAY LEFT ANTERIOR FASCICULAR BLOCK MINIMAL ST DEPRESSION Electronically Signed On 08-07-2016 18:14:06 EST by Maggie Reyes
[2016-08-07] MEDS: Metoclopramide 10 MG/10 ML UD.LIQ PO SCH (20:39)
[2016-08-08] MEDS: *HR* LORazepam 1 MG TABLET PO SCH ×2 (02:00→06:33)
[2016-08-08] MEDS: Ipratropium/Albuterol Neb 3 ML IH SCH ×2 (05:24→10:50)
[2016-08-08] MEDS: *HR* HYDROcodone/Acet 10/325 mg TABLET PO PRN (06:31)
[2016-08-08 08:11] VITALS: BP 114/62
[2016-08-08] MEDS: Metoclopramide 10 MG/10 ML UD.LIQ PO SCH (09:39)
[2016-08-08] MEDS: PredniSONE 20 MG TABLET PO SCH (09:40)
[2016-08-08] MEDS: Diltiazem CD (24hr) 180 MG CAPSULE PO SCH (09:40)
[2016-08-08] MEDS: Lactobacillus 1 EACH CAP.SPRINK PO SCH (09:40)
[2016-08-08] MEDS: Levofloxacin 500 MG/100 ML 500 MG/100 ML BAG IVPB SCH (09:46)
--- NOTE | 2016-08-08 09:51 | Discharge Summary ---
Date of Encounter: 08/08/16 Time of Encounter: 09:40 - Discharge Diagnosis (1) Acute exacerbation of chronic obstructive airways disease Priority: Primary Status: Acute (2) Anxiety Priority: Secondary Status: Chronic (3) History of DVT (deep vein thrombosis) Priority: Secondary Status: Chronic - Discharge Medications Prescriptions: LORazepam [Ativan] 1 mg PO Q6H #28 tablet Home Medications: Melatonin 3 mg PO HS PRN 01/23/15 [History] Montelukast [Singulair] 10 mg PO DAILY #30 tablet 02/14/15 [Rx] Roflumilast [Daliresp] 500 mcg PO DAILY 09/17/15 [History] Ondansetron ODT [Zofran ODT] 4 mg SL Q6HR PRN #8 tab.rapdis 01/30/16 [Rx] Budesonide/Formoterol 160/4.5 [Symbicort 160/4.5] 2 puff IH BID 03/20/16 [ History] Cyclobenzaprine [Flexeril] 5 mg PO TID 03/20/16 [History] HYDROcodone/Acet 10/325 mg [[place] 10-325 mg] 1 tab PO Q6HR PRN 03/20/16 [History ] Warfarin Sodium 3 mg PO QPM 03/20/16 [History] Ergocalciferol (VITAMIN D2) [Vitamin D2 (50,000 UNIT)] 50,000 unit PO 2XW [History] Multivitamin [Multi-Day Vitamins] 1 tab PO DAILY 03/26/16 [History] Oxygen 1 each .ROUTE AD 03/26/16 [History] Atorvastatin [Lipitor] 10 mg PO HS 30 Days 03/31/16 [Rx] Diltiazem CD (24hr) [Cardizem CD] 360 mg PO DAILY 30 Days 03/31/16 [Rx] Sotalol [Betapace] 80 mg PO Q12H 30 Days 03/31/16 [Rx] Albuterol Sulfate [Albuterol Inhaler] 2 puff IH Q2HR PRN #0 inhaler 05/31/16 [Rx ] Levalbuterol Neb [Xopenex Neb] 1.25 mg IH Q4HR PRN 30 Days 05/31/16 [Rx] Magnesium Oxide [Mag-Ox] 400 mg PO DAILY 30 Days 05/31/16 [Rx] Metoclopramide [Reglan] 5 mg PO BID tablet 05/31/16 [Rx] PredniSONE 10 mg PO BIDWM #60 tablet 06/09/16 [Rx] LORazepam [Ativan] 1 mg PO Q6H #28 tablet 08/08/16 [Rx] Allergies/Adverse Reactions: Allergies methyl salicylate Allergy (Verified 08/06/16 15:30) See Comments metronidazole [From Flagyl] Allergy (Verified 08/06/16 15:30) Hives orange juice [[place] Juice] Allergy (Verified 08/06/16 15:30) Swelling of Lip/Tongue/Throat sertraline [From Zoloft] Allergy (Verified 08/06/16 15:30) Agitated vancomycin Allergy (Verified 08/06/16 15:30) Vomiting fidaxomicin [From Dificid] Adverse Reaction (Verified 08/06/16 15:30) Vomiting ketorolac [From Toradol] Adverse Reaction (Verified 08/06/16 15:30) Vomiting menthol Adverse Reaction (Verified 08/06/16 15:30) Difficulty Breathing meperidine [From Demerol] Adverse Reaction (Verified 08/06/16 15:30) Vomiting ropinirole [From Requip] Adverse Reaction (Verified 08/06/16 15:30) Vomiting simvastatin Adverse Reaction (Verified 08/06/16 15:30) Muscle Pain tramadol Adverse Reaction (Verified 08/06/16 15:30) Vomiting zolmitriptan Adverse Reaction (Verified 08/06/16 15:30) Agitated Date of admission: 08/06/16 17:06 Primary care physician: Kit Stern MD - Patient Status Disposition: Home, Self-Care Overall status at discharge: patient is progressing back to baseline - Discharge Instructions Follow Up With: Kit Stern MD [Primary Care Provider] - 1 week - Diet and Activity Activity: resume usual activities as tolerated, wear oxygen at all times Diet: advance to your usual diet Hospital course: Ms. Stern is a 60 year old female who came to emergency room stating she had increasing dyspnea over the past 3-4 days. She had a cough productive of yellow mucus. She reports completing a seven-day course of Keflex the day prior to onset of increasing dyspnea. She reports having run out of Ativan 5 days ago. She was evaluated in emergency room and felt to have exacerbation of COPD. She was admitted to [facility] for ongoing care needs. Initial orders were written by the emergency room physician. I saw her on August 06 and performed a history and physical. She was started on IV Levaquin. Lactobacillus was added. Her WBC normalized to 8.8 by the following day. She remained afebrile during hospitalization. When I saw her on August 08 she felt improved and stable for discharge home. She will follow with Dr. Stern within 1 week. I restarted her on Ativan at a dose of 1 mg every 6 hours. I do not feel she needs additional antibiotics after discharge. - Time Spent with Patient Total time spent providing and/or coordinating discharge services: - Constitutional Vitals: Temp Pulse Resp BP Pulse Ox 98.4 F 78 20 114/62 97 08/08/16 07:00 08/08/16 07:00 08/08/16 07:00 08/08/16 07:00 08/08/16 07:00
[2016-08-08] MEDS: Budesonide/Formoterol 160/4.5 MDI IH SCH (10:50)
[2016-08-08] MEDS: Albuterol 2.5 MG/3 ML NEBULIZER IH PRN (14:31)
== END 2016-08-08 15:00 | disposition home or self-care (01) ==
LOC: EMEROOPIK 15:28 → INPPIK 15:28
PROVIDERS: ADMIT Internal Medicine; ATTEND Internal Medicine

== ENCOUNTER 2016-08-23 15:20 | Observation (INO) ==
[2016-08-23] MEDS ORDERED: Ipratropium/Albuterol Neb 3 ML IH ONE (15:50)
[2016-08-23] MEDS ORDERED: 0.9 % Sodium Chloride 1,000 ML IVC ONE (15:50)
--- NOTE | 2016-08-23 15:50 | Emergency Department Note ---
Disposition Clinical Impression: Acute exacerbation of chronic obstructive airways disease, Chronic respiratory failure with hypoxia Disposition: Admitted As Inpatient Condition: Fair Referrals: Kit Stern MD [Primary Care Provider] - Forms: Work/School Release, ED Satisfaction Letter SOB HPI - General Chief Complaint: ED General Medical Stated Complaint: Pt feels weak, and "just not with it" Source: patient, family Limitations: no limitations Nursing Notes Reviewed: Yes - History of Present Illness Pt Subjective Complaint: shortness of breath, "asthma attack" Onset (ago): hour(s) Context: recent illness Severity: severe Consistency/Duration: intermittent, gradually worsening Worsens with: lying flat, exertion Known history of: COPD, asthma Associated symptoms: Reports: pain with inspiration, wheezing, sputum production Treatment prior to arrival: oxygen, bronchodilator Cough present: Yes Cough Description: Productive (fd) Cough Frequency: Continuous Sputum production: Yes - Related Data Home oxygen amount: 2 liters Home Medications Medication Instructions Recorded Confirmed Melatonin 3 mg PO HS PRN 01/23/15 08/23/16 Roflumilast [Daliresp] 500 mcg PO DAILY 09/17/15 08/23/16 Budesonide/Formoterol 160/4.5 2 puff IH BID 03/20/16 08/23/16 [Symbicort 160/4.5] Cyclobenzaprine [Flexeril] 5 mg PO TID 03/20/16 08/23/16 HYDROcodone/Acet 10/325 mg [[place] 1 tab PO Q6HR PRN 03/20/16 08/23/16 10-325 mg] Warfarin Sodium 3 mg PO QPM 03/20/16 08/23/16 Ergocalciferol (VITAMIN D2) 50,000 unit PO 2XW 03/26/16 08/23/16 [Vitamin D2 (50,000 UNIT)] Multivitamin [Multi-Day Vitamins] 1 tab PO DAILY 03/26/16 08/23/16 Oxygen 1 each .ROUTE AD 03/26/16 08/23/16 Previous Rx's Medication Instructions Recorded Montelukast [Singulair] 10 mg PO DAILY #30 tablet 02/14/15 Ondansetron ODT [Zofran ODT] 4 mg SL Q6HR PRN #8 tab.rapdis 01/30/16 Atorvastatin [Lipitor] 10 mg PO HS 30 Days 03/31/16 Diltiazem CD (24hr) [Cardizem CD] 360 mg PO DAILY 30 Days 03/31/16 Sotalol [Betapace] 80 mg PO Q12H 30 Days 03/31/16 Albuterol Sulfate [Albuterol 2 puff IH Q2HR PRN #0 inhaler 05/31/16 Inhaler] Levalbuterol Neb [Xopenex Neb] 1.25 mg IH Q4HR PRN 30 Days 05/31/16 Magnesium Oxide [Mag-Ox] 400 mg PO DAILY 30 Days 05/31/16 Metoclopramide [Reglan] 5 mg PO BID tablet 05/31/16 PredniSONE 10 mg PO BIDWM #60 tablet 06/09/16 LORazepam [Ativan] 1 mg PO Q6H #28 tablet 08/08/16 Allergies Allergy/AdvReac Type Severity Reaction Status Date / Time methyl salicylate Allergy See Verified 08/06/16 15:30 Comments metronidazole [From Flagyl] Allergy Hives Verified 08/06/16 15:30 orange juice [[place] Juice] Allergy Swelling Verified 08/06/16 15:30 of Lip/Tongue/Throat sertraline [From Zoloft] Allergy Agitated Verified 08/06/16 15:30 vancomycin Allergy Vomiting Verified 08/06/16 15:30 fidaxomicin [From Dificid] AdvReac Vomiting Verified 08/06/16 15:30 ketorolac [From Toradol] AdvReac Vomiting Verified 08/06/16 15:30 menthol AdvReac Difficulty Verified 08/06/16 15:30 Breathing meperidine [From Demerol] AdvReac Vomiting Verified 08/06/16 15:30 ropinirole [From Requip] AdvReac Vomiting Verified 08/06/16 15:30 simvastatin AdvReac Muscle Pain Verified 08/06/16 15:30 tramadol AdvReac Vomiting Verified 08/06/16 15:30 zolmitriptan AdvReac Agitated Verified 08/06/16 15:30 All systems ED: reviewed and negative except as stated. 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 - Social History Smoking Status: Former smoker Smokeless Tobacco Status: No Alcohol use: Reports: none Drug use: Reports: none Physical Exam - General Limitations: no limitations (morbid obesity) General appearance: in no apparent distress, other (sleepy and solmnolent, high CO2) - Head Head exam: atraumatic - Eye Eye exam: Present: normal appearance - ENT ENT exam: normal exam - Neck Neck exam: Present: normal inspection - Respiratory Respiratory exam: Present: accessory muscle use - Expanded Respiratory Exam Location: wheezes: Right, Left, decreased breath sounds: Left, Right - Cardiovascular Cardiovascular exam: Present: irregular rhythm - Abdominal Exam Abdominal exam: Present: soft, Non-Tender - Expanded Lower Extremity Exam Hip/Pelvis exam: Present: normal inspection Lower leg exam: Present: normal inspection. Absent: erythema Ankle exam: Present: normal inspection, swelling Neurovascular/Tendon exam: Present: normal capillary refill - Back Exam Back exam: Present: normal inspection Course Course Narrative: patient seen and examined no distress frequent exacerbations of same refuses BIPAP/etc, counselled risk of with worsening/intubation, understood, and so did family Vital Signs Temperature 97.6 F 08/23/16 15:27 Pulse Rate 81 08/23/16 15:27 Respiratory Rate 16 08/23/16 15:27 Blood Pressure 104/80 08/23/16 15:27 O2 Sat by Pulse Oximetry 91 L 08/23/16 15:27 Temperature 97.6 F 08/23/16 15:37 Pulse Rate 77 08/23/16 16:30 Respiratory Rate 16 08/23/16 17:11 Blood Pressure 127/85 08/23/16 16:30 O2 Sat by Pulse Oximetry 97 08/23/16 17:11 Oxygen Delivery Oxygen Delivery Nasal Cannula Shortness of Breath/Dyspnea - Differential Diagnosis Likely: acute exacerbation of chronic obstructive airways disease, congestive heart failure, pneumonia, asthma with exacerbation, pulmonary embolism - Medical Records Medical records reviewed: Yes I reviewed the patient's medical records. - Lab Data Lab results reviewed: Yes I reviewed the patient's lab results. Result diagrams: 08/23/16 16:20 08/23/16 16:20 Lab Results 0308/23/16 08/23/16 Range/Units 16:20 16:20 16:20 WBC 16.4 H (4.3-11.1) K/mcL RBC 4.60 (3.82-4.97) M/mcL Hgb 14.1 (11.5-15.4) g/dL Hct 43.9 (35.3-44.9) % MCV 95.4 (83.0-100.0) fL MCH 30.7 (28.0-33.3) pg MCHC 32.1 (31.6-35.5) g/dL RDW 15.8 H (11.5-14.5) % Plt Count 302 (140-400) K/mcL MPV 9.0 L (9.4-12.4) fL Immature Gran % 2.4 (0-4) % Seg Neutrophils % 69.8 % Lymphocytes % 17.6 % Monocytes % 8.2 % Eosinophils % 1.6 % Basophils % 0.4 % Neutrophils # 11.5 H (1.6-8.9) K/mcL Lymphocytes # 2.9 (0.6-4.6) K/mcL Monocytes # 1.3 (0.0-1.3) K/mcL Eosinophils # 0.3 (0.0-0.6) K/mcL Basophils # 0.1 (0.0-0.2) K/mcL Nucleated RBCs/100 WBC 0.1 H (0) /100 WBC ABG pH (7.32-7.45) pH Units ABG pCO2 (35-45) mmHg ABG pO2 (85-104) mmHg ABG HCO3 (21-27) mEQ/L ABG Total CO2 (20-26) mEq/L ABG O2 Saturation (95-98) % ABG Base Excess (-2.0 to 3.0) mEq/L Liter Flow L/MIN Blood Gas Modality Inspired O2 % Sodium 140 (136-145) mEq/L Potassium 4.4 (3.5-4.5) mEq/L Chloride 99 (98-109) mEq/L Carbon Dioxide 29 (19-29) mEq/L BUN 20 (7-20) mg/dL Creatinine 0.77 (0.57-1.11) mg/dL Est GFR ( Amer) > 60 (> 60) Est GFR (Non-Af Amer) > 60 (> 60) BUN/Creatinine Ratio 26 (6-26) Glucose 74 (70-99) mg/dL POC Glucose (58-89) Calculated Osmolality 291 (280-300) Calcium 9.3 (8.6-10.8) mg/dL Troponin I 0.01 (0-0.03) ng/mL B-Natriuretic Peptide (0-100) pg/mL 08/23/16 08/23/16 08/23/16 Range/Units 16:20 16:29 16:34 WBC (4.3-11.1) K/mcL RBC (3.82-4.97) M/mcL Hgb (11.5-15.4) g/dL Hct (35.3-44.9) % MCV (83.0-100.0) fL MCH (28.0-33.3) pg MCHC (31.6-35.5) g/dL RDW (11.5-14.5) % Plt Count (140-400) K/mcL MPV (9.4-12.4) fL Immature Gran % (0-4) % Seg Neutrophils % % Lymphocytes % % Monocytes % % Eosinophils % % Basophils % % Neutrophils # (1.6-8.9) K/mcL Lymphocytes # (0.6-4.6) K/mcL Monocytes # (0.0-1.3) K/mcL Eosinophils # (0.0-0.6) K/mcL Basophils # (0.0-0.2) K/mcL Nucleated RBCs/100 WBC (0) /100 WBC ABG pH 7.45 (7.32-7.45) pH Units ABG pCO2 52 H (35-45) mmHg ABG pO2 122 H (85-104) mmHg ABG HCO3 42.2 H (21-27) mEQ/L ABG Total CO2 45.2 H (20-26) mEq/L ABG O2 Saturation 99 H (95-98) % ABG Base Excess 14.8 H (-2.0 to 3.0) mEq/L Liter Flow 3 L/MIN Blood Gas Modality nc Inspired O2 32 % Sodium (136-145) mEq/L Potassium (3.5-4.5) mEq/L Chloride (98-109) mEq/L Carbon Dioxide (19-29) mEq/L BUN (7-20) mg/dL Creatinine (0.57-1.11) mg/dL Est GFR ( Amer) (> 60) Est GFR (Non-Af Amer) (> 60) BUN/Creatinine Ratio (6-26) Glucose (70-99) mg/dL POC Glucose 70 (58-89) Calculated Osmolality (280-300) Calcium (8.6-10.8) mg/dL Troponin I (0-0.03) ng/mL B-Natriuretic Peptide 21 (0-100) pg/mL - Radiology Data Radiology results reviewed: Yes I reviewed the patient's radiology results. Impressions Chest X-Ray 08/23/16 15:50 IMPRESSION: Mild atelectasis of the left mid lung. No acute abnormality chest otherwise. D/ / Francis Ramos MD / Francis Ramos MD Interpreting Provider: Francis Ramos MD - EKG Data EKG attestation: Yes I reviewed and interpreted this EKG.
[2016-08-23 16:33] LABS: Basophils # 0.1 K/mcL (0.0-0.2); Basophils % 0.4 %; Eosinophils # 0.3 K/mcL (0.0-0.6); Eosinophils % 1.6 %; Hematocrit 43.9 % (35.3-44.9); Hemoglobin 14.1 g/dL (11.5-15.4); Immature Granulocytes % 2.4 % (0-4); Lymphocytes # 2.9 K/mcL (0.6-4.6); Lymphocytes % 17.6 %; Mean Corpuscular HGB Conc 32.1 g/dL (31.6-35.5); Mean Corpuscular Hemoglobin 30.7 pg (28.0-33.3); Mean Corpuscular Volume 95.4 fL (83.0-100.0); Monocytes # 1.3 K/mcL (0.0-1.3); Monocytes % 8.2 %; Neutrophils # 11.5 K/mcL (1.6-8.9); Nucleated Red Blood Cells 0.1 /100 WBC (0); Platelet Count 302 K/mcL (140-400); Red Cell Distribution Width 15.8 % (11.5-14.5); Segmented Neutrophils % 69.8 %
[2016-08-23 16:47] LABS: ABG HCO3 42.2 mEQ/L (21-27); ABG PCO2 52 mmHg (35-45); ABG PH 7.45 pH Units (7.32-7.45); ABG PO2 122 mmHg (85-104)
[2016-08-23 16:48] LABS: ABG Base Excess 14.8 mEq/L (-2.0 to 3.0); ABG Oxygen Saturation 99 % (95-98); ABG TCO2 45.2 mEq/L (20-26); Blood Gas FiO2 32 %; Blood Gas Liter Flow 3 L/MIN
[2016-08-23 16:49] LABS: BUN/Creatinine Ratio 26 (6-26); Blood Urea Nitrogen 20 mg/dL (7-20); Calcium 9.3 mg/dL (8.6-10.8); Carbon Dioxide 29 mEq/L (19-29); Chloride 99 mEq/L (98-109); Glucose 74 mg/dL (70-99); Osmolality,Calculated 291 (280-300); Potassium 4.4 mEq/L (3.5-4.5); Sodium 140 mEq/L (136-145); eGFR For African Americans > 60 (> 60); eGFR For Non-African Americans > 60 (> 60)
[2016-08-23] MEDS ORDERED: CefTRIAXone 1,000 MG in D5% in Water (Mini-Bag+) 100 ML IVPB ONE ×3 (17:29→19:56)
[2016-08-23] MEDS ORDERED: Azithromycin 250 MG TABLET PO ONE (17:29)
[2016-08-23] MEDS ORDERED: D5% in Water (Mini-Bag+) 100 ML IVPB ONE ×2 (17:44→19:56)
[2016-08-23] MEDS ORDERED: Naloxone 0.4 MG/ML INJ IVP PRN (19:56)
[2016-08-23] MEDS ORDERED: 0.9 % Sodium Chloride 1,000 ML IVC SCH (19:56)
[2016-08-23] MEDS ORDERED: NON-FORMULARY MEDICATION 1 EACH EACH (Oxygen [Oxygen] 1 EACH) SCH (19:56)
[2016-08-23] MEDS: *HR* LORazepam 1 MG TABLET PO SCH (20:49)
[2016-08-23] MEDS: *HR* HYDROcodone/Acet 10/325 mg TABLET PO PRN (20:58)
[2016-08-23] MEDS ORDERED: Ipratropium/Albuterol Neb 3 ML IH SCH (21:00)
[2016-08-23] MEDS ORDERED: Budesonide/Formoterol 160/4.5 MDI IH SCH (21:00)
[2016-08-23] MEDS: Ondansetron ODT 4 MG TAB.RAPDIS SL PRN (21:02)
[2016-08-23] MEDS: Ipratropium/Albuterol Neb 3 ML IH SCH ×2 (22:39→22:40)
[2016-08-24] MEDS: *HR* LORazepam 1 MG TABLET PO SCH ×4 (03:47→20:12)
[2016-08-24] MEDS: Ipratropium/Albuterol Neb 3 ML IH SCH ×4 (04:37→21:56)
[2016-08-24] MEDS: Ondansetron ODT 4 MG TAB.RAPDIS SL PRN ×2 (05:28→20:11)
[2016-08-24] MEDS: *HR* HYDROcodone/Acet 10/325 mg TABLET PO PRN ×3 (05:30→20:11)
[2016-08-24 05:42] LABS: Basophils % 0.3 %; Hematocrit 40.8 % (35.3-44.9); Immature Granulocytes % 3.3 % (0-4); Lymphocytes # 1.1 K/mcL (0.6-4.6); Lymphocytes % 8.8 %; Mean Corpuscular HGB Conc 31.9 g/dL (31.6-35.5); Mean Corpuscular Hemoglobin 30.4 pg (28.0-33.3); Mean Corpuscular Volume 95.6 fL (83.0-100.0); Mean Platelet Volume 8.6 fL (9.4-12.4); Monocytes # 0.1 K/mcL (0.0-1.3); Monocytes % 1.1 %; Platelet Count 285 K/mcL (140-400); Red Blood Count 4.27 M/mcL (3.82-4.97); Red Cell Distribution Width 15.6 % (11.5-14.5); Segmented Neutrophils % 86.5 %
[2016-08-24 05:45] LABS: INR 2.2; Prothrombin Time 24.4 Seconds (9.4-12.1)
[2016-08-24 06:00] LABS: BUN/Creatinine Ratio 29 (6-26); Blood Urea Nitrogen 23 mg/dL (7-20); Calcium 8.9 mg/dL (8.6-10.8); Carbon Dioxide 24 mEq/L (19-29); Chloride 102 mEq/L (98-109); Glucose 162 mg/dL (70-99); Neutrophils # 11.2 K/mcL (1.6-8.9); Osmolality,Calculated 299 (280-300); Potassium 4.5 mEq/L (3.5-4.5); Sodium 141 mEq/L (136-145); eGFR For African Americans > 60 (> 60); eGFR For Non-African Americans > 60 (> 60)
[2016-08-24] MEDS: Diltiazem CD (24hr) 180 MG CAPSULE PO SCH (07:48)
[2016-08-24] MEDS: Magnesium Oxide 400 MG TABLET PO SCH (07:48)
[2016-08-24] MEDS: PredniSONE 10 MG TABLET PO SCH ×2 (07:49→17:33)
[2016-08-24] MEDS: Azithromycin 250 MG TABLET PO SCH (07:49)
[2016-08-24] MEDS: Budesonide/Formoterol 160/4.5 MDI IH SCH ×2 (08:25→21:50)
[2016-08-24] MEDS ORDERED: Azithromycin 200 MG/5 ML MLS PO SCH (09:00)
--- NOTE | 2016-08-24 12:34 | Internal Med History&Physical ---
Date of Encounter: 08/24/16 Time of Encounter: 12:15 Assessment and Plan (1) Acute exacerbation of chronic obstructive airways disease Current visit: Yes Status: Acute She was given Rocephin and Zithromax emergency room. Antibiotics will be continued, lactobacillus ordered with follow-up labs done as needed. Internal Medicine - H&P: HPI Chief complaint: Dyspnea Admitted From: Home Plans for Post Hospital Care: Home History of present illness: Ms. Stern is a 61 year old female who came to emergency room stating she had increasing dyspnea for the preceding 2 days. She had a dry cough present. She felt "dizzy" which she describes as lightheaded. She also felt she was sleeping more. She admitted she turned her oxygen to 3 L/m at home. She was evaluated in emergency room and felt to have exacerbation of COPD. She was admitted to [facility] floor for ongoing care needs. She was hospitalized last at [facility] approximately 2 weeks ago with similar complaints. Her respiratory history is significant for having smoked from age 8 -28 up to 3 packs per day. She had pulmonary function test done 09/15/2015 which showed very severe COPD. She follows with Dr. Jarvis at [facility]. She wears oxygen 24/7 at 2 L/m. She has had negative workup for sleep apnea in the past. She considered lung transplant at one time for COPD but decided against that. She is been hospitalized many times at [facility] the past few years with dyspnea. Her most recent chest CT was 04/15/2016 which showed no acute abnormalities. Past Med Surg Social Fam HX - Past Medical History Medical history: asthma, atrial fibrillation, COPD, DVT, GERD, hyperlipidemia, hypertension, renal disease, SVT, thyroid disease Psychiatric history: anxiety, depression, panic disorder - Past Surgical History Surgical History: cataract, cholecystectomy, colostomy, herniorrhaphy, IVC filter - Social History Smoking Status: Former smoker Smokeless Tobacco Status: No Alcohol use: none Drug use: none - Family History Father Family Member Ethnicity: Non- Living Status: Hx Family Cardiac Disorders: Yes ( of [place] at 58) Internal Medicine - H&P: Meds Melatonin 3 mg PO HS PRN 01/23/15 [History] Montelukast [Singulair] 10 mg PO DAILY #30 tablet 02/14/15 [Rx] Roflumilast [Daliresp] 500 mcg PO DAILY 09/17/15 [History] Ondansetron ODT [Zofran ODT] 4 mg SL Q6HR PRN #8 tab.rapdis 01/30/16 [Rx] Budesonide/Formoterol 160/4.5 [Symbicort 160/4.5] 2 puff IH BID 03/20/16 [ History] Cyclobenzaprine [Flexeril] 5 mg PO TID 03/20/16 [History] HYDROcodone/Acet 10/325 mg [[place] 10-325 mg] 1 tab PO Q6HR PRN 03/20/16 [History ] Warfarin Sodium 3 mg PO QPM 03/20/16 [History] Ergocalciferol (VITAMIN D2) [Vitamin D2 (50,000 UNIT)] 50,000 unit PO 2XW [History] Multivitamin [Multi-Day Vitamins] 1 tab PO DAILY 03/26/16 [History] Oxygen 1 each .ROUTE AD 03/26/16 [History] Atorvastatin [Lipitor] 10 mg PO HS 30 Days 03/31/16 [Rx] Sotalol [Betapace] 80 mg PO Q12H 30 Days 03/31/16 [Rx] Albuterol Sulfate [Albuterol Inhaler] 2 puff IH Q2HR PRN #0 inhaler 05/31/16 [Rx ] Levalbuterol Neb [Xopenex Neb] 1.25 mg IH Q4HR PRN 30 Days 05/31/16 [Rx] Magnesium Oxide [Mag-Ox] 400 mg PO DAILY 30 Days 05/31/16 [Rx] Metoclopramide [Reglan] 5 mg PO BID tablet 05/31/16 [Rx] PredniSONE 10 mg PO BIDWM #60 tablet 06/09/16 [Rx] LORazepam [Ativan] 1 mg PO Q6H #28 tablet 08/08/16 [Rx] Diltiazem CD (24hr) [Cardizem CD] 120 mg PO DAILY 08/23/16 [History] Diltiazem CD (24hr) [Cardizem CD] 180 mg PO BID 08/23/16 [History] Allergies methyl salicylate Allergy (Verified 08/06/16 15:30) See Comments metronidazole [From Flagyl] Allergy (Verified 08/06/16 15:30) Hives orange juice [[place] Juice] Allergy (Verified 08/06/16 15:30) Swelling of Lip/Tongue/Throat sertraline [From Zoloft] Allergy (Verified 08/06/16 15:30) Agitated vancomycin Allergy (Verified 08/06/16 15:30) Vomiting fidaxomicin [From Dificid] Adverse Reaction (Verified 08/06/16 15:30) Vomiting ketorolac [From Toradol] Adverse Reaction (Verified 08/06/16 15:30) Vomiting menthol Adverse Reaction (Verified 08/06/16 15:30) Difficulty Breathing meperidine [From Demerol] Adverse Reaction (Verified 08/06/16 15:30) Vomiting ropinirole [From Requip] Adverse Reaction (Verified 08/06/16 15:30) Vomiting simvastatin Adverse Reaction (Verified 08/06/16 15:30) Muscle Pain tramadol Adverse Reaction (Verified 08/06/16 15:30) Vomiting zolmitriptan Adverse Reaction (Verified 08/06/16 15:30) Agitated All Systems PM: A 10-system review of systems was performed and is negative for pertinent findings except as documented above in the HPI. Review of systems: Review of systems from the July 2016 [facility] hospitalization were reviewed and revised as below. Gen.: Her weight has increased from approximately 150 pounds June 2015 to present weight of approximately 165 pounds. Cardiovascular: She has hypertension. She has paroxysmal atrial fibrillation and was hospitalized for this at [facility] March 2016 and was initially placed on Rythmol but later changed to sotalol. She had DVT with pulmonary embolus July 2014 and had IVC filter placed at [facility]. She was initially placed on Coumadin but this was discontinued after approximately 3 months and she was placed on Xarelto. She developed nosebleeds and other complications so was restarted back on Coumadin after a few weeks. She had another pulmonary embolism February 2015 at [facility] after bowel surgery.She had a limited echocardiogram done 03/21/2016 which showed normal LV size. The LVEF was 55%. There was mild diastolic dysfunction reported on an September 2015 echo but no significant valvular abnormality seen. Left atrial size was normal at 3.30 cm. She had a heart catheter 2008 and an exercise stress test June 2012 which were negative. Respiratory: As per history of present illness GI: She is status post cholecystectomy. She had polyps seen on a 2005 colonoscopy but has not had follow-up procedure done. She had an EGD approximately 2006. She denies other liver or exocrine pancreas disorders. She had segmental resection of colon secondary to diverticulitis with perforation February 2015 at [facility]. Her postop course was complicated with pulmonary embolism. She had development of a colostomy and has been told she will not have a takedown procedure because of her severe COPD. : She had hematuria in the past that resolved. She denies other kidney or bladder disorders. She has had tubal ligation. Endocrine: She has hyperlipidemia but no known diabetes or thyroid disease. She has been diagnosed with vitamin D deficiency. Neurologic: No history of large distribution strokes or seizures. Hematology/oncology: She has had anemia and B12 and iron deficiency past. She has not had documented internal malignancies. Psychiatric: She has anxiety and depression but no other mental health issues Musk skeletal: She has DJD and osteoporosis but no known gout. - Constitutional Vitals: Temp Pulse Resp BP Pulse Ox 99.2 F 98 16 120/50 96 08/24/16 10:52 08/24/16 10:52 08/24/16 10:52 08/24/16 10:52 08/24/16 10:52 Exam: General: She is a well-developed well-nourished female lying in bed who appears in no severe distress at present time. HEENT: Head is atraumatic and normocephalic. Eyes: EOMI. There is no scleral icterus. Mouth: Mucosa is moist. Neck: Supple and nontender. There is no thyromegaly or adenopathy noted. Heart: Regular without murmurs gallops or ectopics. Lungs: No wheezes or crackles are heard. Abdomen: Soft and nontender. No masses or guarding are noted. She has an ostomy in the left lower quadrant draining brown stool. There is well-healed lower midline abdominal scar. Extremities: There is no cyanosis edema or clubbing noted. Dorsalis pedis and posttibial pulses are 1-2 over 2 bilaterally. Neurologic: Mental status: She is talkative and a good historian. Cranial nerves: Smile is symmetric. Forehead wrinkles bilaterally. Tongue protrudes midline. EOMI. Motor: There is no pronator drift. Cerebellar: Finger to nose is intact bilaterally. Skin: Warm and dry Internal Med - H&P Results - Labs CBC & Chem 7: 08/24/16 05:25 08/24/16 05:25 Labs: Short CBC 08/24/16 Range/Units 05:25 WBC 12.9 H (4.3-11.1) K/mcL Hgb 13.0 (11.5-15.4) g/dL Hct 40.8 (35.3-44.9) % Plt Count 285 (140-400) K/mcL Neutrophils # 11.2 H (1.6-8.9) K/mcL BMP 08/24/16 05:25 Sodium 141 Potassium 4.5 Chloride 102 Carbon Dioxide 24 BUN 23 H Creatinine 0.80 Glucose 162 H Calcium 8.9
[2016-08-24] MEDS: Levalbuterol Neb 1.25 MG/3 ML IH PRN (12:36)
[2016-08-24] MEDS: Cefuroxime PO 250 MG TABLET PO SCH (17:33)
--- NOTE | 2016-08-24 17:55 | Electrocardiograph Report ---
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
[2016-08-24] MEDS: Lactobacillus 1 EACH CAP.SPRINK PO SCH (20:12)
[2016-08-25] MEDS: Levalbuterol Neb 1.25 MG/3 ML IH PRN ×2 (01:51→21:05)
[2016-08-25] MEDS: *HR* LORazepam 1 MG TABLET PO SCH ×4 (02:11→21:09)
[2016-08-25] MEDS: *HR* HYDROcodone/Acet 10/325 mg TABLET PO PRN ×3 (02:12→21:10)
[2016-08-25] MEDS: Benzonatate 100 MG CAPSULE PO PRN ×2 (02:14→21:10)
[2016-08-25] MEDS: Ipratropium/Albuterol Neb 3 ML IH SCH ×4 (05:05→23:09)
[2016-08-25] MEDS: Cefuroxime PO 250 MG TABLET PO SCH ×2 (05:22→17:25)
[2016-08-25 07:56] LABS: Basophils # 0.1 K/mcL (0.0-0.2); Basophils % 0.3 %; Hematocrit 39.3 % (35.3-44.9); Hemoglobin 12.5 g/dL (11.5-15.4); Immature Granulocytes % 1.7 % (0-4); Lymphocytes # 1.8 K/mcL (0.6-4.6); Lymphocytes % 7.9 %; Mean Corpuscular HGB Conc 31.8 g/dL (31.6-35.5); Mean Corpuscular Hemoglobin 30.5 pg (28.0-33.3); Mean Corpuscular Volume 95.9 fL (83.0-100.0); Mean Platelet Volume 8.9 fL (9.4-12.4); Monocytes # 1.8 K/mcL (0.0-1.3); Monocytes % 7.9 %; Neutrophils # 18.3 K/mcL (1.6-8.9); Platelet Count 311 K/mcL (140-400); Red Cell Distribution Width 15.5 % (11.5-14.5); Segmented Neutrophils % 82.2 %
[2016-08-25] MEDS: Magnesium Oxide 400 MG TABLET PO SCH (08:21)
[2016-08-25] MEDS: Diltiazem CD (24hr) 180 MG CAPSULE PO SCH (08:22)
[2016-08-25] MEDS: Lactobacillus 1 EACH CAP.SPRINK PO SCH ×2 (08:22→21:09)
[2016-08-25] MEDS: PredniSONE 10 MG TABLET PO SCH ×2 (08:26→17:26)
[2016-08-25] MEDS: Azithromycin 250 MG TABLET PO SCH (08:26)
--- NOTE | 2016-08-25 09:06 | Internal Med Progress Note ---
Date of Encounter: 08/25/16 Time of Encounter: 08:55 - Assessment and plan (1) Acute exacerbation of chronic obstructive airways disease Current Visit: Yes Status: Acute Assessment and plan: August 25. Continue present regimen. We will recheck labs in a.m. - Subjective Interval history: August 25. She has no new complaint except she is more dyspneic. - Constitutional Vitals: Temp Pulse Resp BP Pulse Ox 97.9 F 79 16 123/76 95 08/25/16 00:20 08/25/16 00:20 08/25/16 05:05 08/25/16 00:20 08/25/16 05:05 Exam: She has upper airway stridor as previously seen. Her peripheral lung sibley clear. She appears slightly anxious. I reviewed her medications and lab results. Internal Medicine: Result - Labs CBC & Chem 7: 08/25/16 07:21 08/24/16 05:25 Labs: Short CBC 08/25/16 Range/Units 07:21 WBC 22.3 H D (4.3-11.1) K/mcL Hgb 12.5 (11.5-15.4) g/dL Hct 39.3 (35.3-44.9) % Plt Count 311 (140-400) K/mcL Neutrophils # 18.3 H (1.6-8.9) K/mcL - ABG Interpretation ABG results: ABG ABG pH 7.45 pH Units (7.32-7.45) 08/23/16 16:34 ABG pCO2 52 mmHg (35-45) H 08/23/16 16:34 ABG pO2 122 mmHg (85-104) H 08/23/16 16:34 ABG O2 Saturation 99 % (95-98) H 08/23/16 16:34 PT/INR, D-dimer PT 24.4 Seconds (9.4-12.1) H 08/24/16 05:25 Consult Discharge Plan - Plan Referrals: Kit Stern MD [Primary Care Provider] - 1 week
[2016-08-25 09:11] LABS: BUN/Creatinine Ratio 33 (6-26); Blood Urea Nitrogen 26 mg/dL (7-20); Calcium 9.2 mg/dL (8.6-10.8); Carbon Dioxide 27 mEq/L (19-29); Chloride 103 mEq/L (98-109); Glucose 104 mg/dL (70-99); Osmolality,Calculated 297 (280-300); Potassium 4.3 mEq/L (3.5-4.5); Sodium 141 mEq/L (136-145); eGFR For African Americans > 60 (> 60); eGFR For Non-African Americans > 60 (> 60)
[2016-08-25] MEDS: Budesonide/Formoterol 160/4.5 MDI IH SCH ×2 (10:52→21:05)
[2016-08-25] MEDS: Melatonin 3 MG TABLET PO PRN (21:09)
[2016-08-26] MEDS: *HR* LORazepam 1 MG TABLET PO SCH ×4 (03:00→22:43)
[2016-08-26] MEDS: Ipratropium/Albuterol Neb 3 ML IH SCH ×4 (05:25→22:34)
[2016-08-26] MEDS: Cefuroxime PO 250 MG TABLET PO SCH ×2 (05:48→16:29)
[2016-08-26 05:59] LABS: Basophils # 0.1 K/mcL (0.0-0.2); Basophils % 0.4 %; Eosinophils % 0.1 %; Hematocrit 36.6 % (35.3-44.9); Hemoglobin 11.5 g/dL (11.5-15.4); Immature Granulocytes % 4.3 % (0-4); Lymphocytes # 1.5 K/mcL (0.6-4.6); Lymphocytes % 11.4 %; Mean Corpuscular HGB Conc 31.4 g/dL (31.6-35.5); Mean Corpuscular Hemoglobin 30.3 pg (28.0-33.3); Mean Corpuscular Volume 96.6 fL (83.0-100.0); Mean Platelet Volume 8.9 fL (9.4-12.4); Monocytes # 0.9 K/mcL (0.0-1.3); Monocytes % 6.8 %; Neutrophils # 9.8 K/mcL (1.6-8.9); Nucleated Red Blood Cells 0.2 /100 WBC (0); Platelet Count 246 K/mcL (140-400); Red Blood Count 3.79 M/mcL (3.82-4.97); Red Cell Distribution Width 15.6 % (11.5-14.5)
[2016-08-26] MEDS: Magnesium Oxide 400 MG TABLET PO SCH (08:38)
[2016-08-26] MEDS: PredniSONE 10 MG TABLET PO SCH ×2 (08:38→16:30)
[2016-08-26] MEDS: Lactobacillus 1 EACH CAP.SPRINK PO SCH ×2 (08:38→22:43)
[2016-08-26] MEDS: Azithromycin 250 MG TABLET PO SCH (08:38)
[2016-08-26] MEDS: *HR* HYDROcodone/Acet 10/325 mg TABLET PO PRN ×3 (08:40→22:49)
[2016-08-26] MEDS: Diltiazem CD (24hr) 180 MG CAPSULE PO SCH (08:41)
[2016-08-26 09:41] LABS: INR 1.2; Prothrombin Time 12.5 Seconds (9.4-12.1)
--- NOTE | 2016-08-26 10:45 | Internal Med Progress Note ---
Date of Encounter: 08/26/16 Time of Encounter: 10:35 - Assessment and plan (1) Acute exacerbation of chronic obstructive airways disease Current Visit: Yes Status: Acute Assessment and plan: August 25. Continue present regimen. We will recheck labs in a.m. August 26. Continue present regimen. WBC is near normal. Anticipate discharge home tomorrow. - Subjective Interval history: August 25. She has no new complaint except she is more dyspneic. August 26. She has no new complaints and feels slightly better. Her cough is more productive. She does not feel back to her baseline yet. - Constitutional Vitals: Temp Pulse Resp BP Pulse Ox 97.8 F 71 18 112/73 98 08/26/16 06:51 08/26/16 06:51 08/26/16 06:51 08/26/16 06:51 08/26/16 06:51 Exam: She is resting comfortably in bed. She is less dyspneic than yesterday. Affect is bright and cheerful. I reviewed her medications and lab results. Internal Medicine: Result - Labs CBC & Chem 7: 08/26/16 05:10 08/25/16 07:21 Labs: Short CBC 08/26/16 Range/Units 05:10 WBC 12.7 H (4.3-11.1) K/mcL Hgb 11.5 (11.5-15.4) g/dL Hct 36.6 (35.3-44.9) % Plt Count 246 (140-400) K/mcL Neutrophils # 9.8 H (1.6-8.9) K/mcL - ABG Interpretation ABG results: ABG ABG pH 7.45 pH Units (7.32-7.45) 08/23/16 16:34 ABG pCO2 52 mmHg (35-45) H 08/23/16 16:34 ABG pO2 122 mmHg (85-104) H 08/23/16 16:34 ABG O2 Saturation 99 % (95-98) H 08/23/16 16:34 PT/INR, D-dimer PT 12.5 Seconds (9.4-12.1) H 08/26/16 09:11 Consult Discharge Plan - Plan Referrals: Kit Stern MD [Primary Care Provider] - 1 week
[2016-08-26] MEDS: Budesonide/Formoterol 160/4.5 MDI IH SCH ×2 (10:48→22:34)
[2016-08-26] MEDS ORDERED: *HR* Warfarin 3 MG TABLET PO SCH (18:00)
[2016-08-26] MEDS: Melatonin 3 MG TABLET PO PRN (22:50)
[2016-08-27] MEDS: *HR* LORazepam 1 MG TABLET PO SCH ×3 (03:41→14:00)
[2016-08-27] MEDS: Ipratropium/Albuterol Neb 3 ML IH SCH ×2 (04:40→10:34)
[2016-08-27] MEDS: Cefuroxime PO 250 MG TABLET PO SCH (06:22)
[2016-08-27] MEDS: *HR* HYDROcodone/Acet 10/325 mg TABLET PO PRN (06:26)
[2016-08-27 07:22] VITALS: BP 121/77
[2016-08-27] MEDS: Magnesium Oxide 400 MG TABLET PO SCH (08:11)
[2016-08-27] MEDS: PredniSONE 10 MG TABLET PO SCH (08:13)
[2016-08-27] MEDS: Azithromycin 250 MG TABLET PO SCH (08:13)
[2016-08-27] MEDS: Diltiazem CD (24hr) 180 MG CAPSULE PO SCH (08:15)
[2016-08-27] MEDS: Lactobacillus 1 EACH CAP.SPRINK PO SCH (08:15)
--- NOTE | 2016-08-27 10:29 | Discharge Summary ---
Date of Encounter: 08/27/16 Time of Encounter: 10:15 - Discharge Diagnosis (1) Acute exacerbation of chronic obstructive airways disease Priority: Primary Status: Acute - Discharge Medications Prescriptions: Cefuroxime PO [Ceftin] 500 mg PO Q12HR #6 tablet Azithromycin [Zithromax] 250 mg PO DAILY #3 tablet Lactobacillus [Culturelle] 1 each PO BID #6 cap.sprink PredniSONE 10 mg PO BIDWM #60 tablet Home Medications: Melatonin 3 mg PO HS PRN 01/23/15 [History] Montelukast [Singulair] 10 mg PO DAILY #30 tablet 02/14/15 [Rx] Roflumilast [Daliresp] 500 mcg PO DAILY 09/17/15 [History] Ondansetron ODT [Zofran ODT] 4 mg SL Q6HR PRN #8 tab.rapdis 01/30/16 [Rx] Budesonide/Formoterol 160/4.5 [Symbicort 160/4.5] 2 puff IH BID 03/20/16 [ History] Cyclobenzaprine [Flexeril] 5 mg PO TID 03/20/16 [History] HYDROcodone/Acet 10/325 mg [[place] 10-325 mg] 1 tab PO Q6HR PRN 03/20/16 [History ] Warfarin Sodium 3 mg PO QPM 03/20/16 [History] Ergocalciferol (VITAMIN D2) [Vitamin D2 (50,000 UNIT)] 50,000 unit PO 2XW [History] Multivitamin [Multi-Day Vitamins] 1 tab PO DAILY 03/26/16 [History] Oxygen 1 each .ROUTE AD 03/26/16 [History] Atorvastatin [Lipitor] 10 mg PO HS 30 Days 03/31/16 [Rx] Sotalol [Betapace] 80 mg PO Q12H 30 Days 03/31/16 [Rx] Albuterol Sulfate [Albuterol Inhaler] 2 puff IH Q2HR PRN #0 inhaler 05/31/16 [Rx ] Levalbuterol Neb [Xopenex Neb] 1.25 mg IH Q4HR PRN 30 Days 05/31/16 [Rx] Magnesium Oxide [Mag-Ox] 400 mg PO DAILY 30 Days 05/31/16 [Rx] Metoclopramide [Reglan] 5 mg PO BID tablet 05/31/16 [Rx] LORazepam [Ativan] 1 mg PO Q6H #28 tablet 08/08/16 [Rx] Diltiazem CD (24hr) [Cardizem CD] 180 mg PO BID 08/23/16 [History] Azithromycin [Zithromax] 250 mg PO DAILY #3 tablet 08/27/16 [Rx] Cefuroxime PO [Ceftin] 500 mg PO Q12HR #6 tablet 08/27/16 [Rx] Lactobacillus [Culturelle] 1 each PO BID #6 cap.sprink 08/27/16 [Rx] PredniSONE 10 mg PO BIDWM #60 tablet 08/27/16 [Rx] Allergies/Adverse Reactions: Allergies methyl salicylate Allergy (Verified 08/06/16 15:30) See Comments metronidazole [From Flagyl] Allergy (Verified 08/06/16 15:30) Hives orange juice [[place] Juice] Allergy (Verified 08/06/16 15:30) Swelling of Lip/Tongue/Throat sertraline [From Zoloft] Allergy (Verified 08/06/16 15:30) Agitated vancomycin Allergy (Verified 08/06/16 15:30) Vomiting fidaxomicin [From Dificid] Adverse Reaction (Verified 08/06/16 15:30) Vomiting ketorolac [From Toradol] Adverse Reaction (Verified 08/06/16 15:30) Vomiting menthol Adverse Reaction (Verified 08/06/16 15:30) Difficulty Breathing meperidine [From Demerol] Adverse Reaction (Verified 08/06/16 15:30) Vomiting ropinirole [From Requip] Adverse Reaction (Verified 08/06/16 15:30) Vomiting simvastatin Adverse Reaction (Verified 08/06/16 15:30) Muscle Pain tramadol Adverse Reaction (Verified 08/06/16 15:30) Vomiting zolmitriptan Adverse Reaction (Verified 08/06/16 15:30) Agitated Date of admission: 08/23/16 18:42 Primary care physician: Kit Stern MD Consults: 08/23/16 21:13 Consult to Nutrition [CONS] Routine Comment: Consulting Provider: NUTRITION Reason for Dietary Consult: MST Score Consult to [place] [CONS] Routine Reason for SW Consult: available resources for D/C - Patient Status Disposition: Home, Self-Care Condition: Fair Overall status at discharge: patient is progressing back to baseline - Discharge Instructions Follow Up With: Kit Stern MD [Primary Care Provider] - 1 week - Diet and Activity Activity: resume usual activities as tolerated, wear oxygen at all times Diet: advance to your usual diet Hospital course: Ms. Stern is a 61 year old female who came to emergency room stating she had increasing dyspnea for the preceding 2 days. She had a dry cough present. She felt "dizzy" which she describes as lightheaded. She also felt she was sleeping more. She admitted she turned her oxygen to 3 L/m at home. She was evaluated in emergency room and felt to have exacerbation of COPD. She was admitted to [facility] floor for ongoing care needs. Initial orders were written by the emergency room physician. I saw her on August 24 and performed a history and physical. She was initially given Rocephin and Zithromax. Lactobacillus was also given. She had gradual clinical improvement and returned to her baseline breathing by August 27. She will be discharged home and continue antibiotic probiotic for 3 additional days. She will follow with her PCP Dr. Stern within 1 week. - Time Spent with Patient Total time spent providing and/or coordinating discharge services: - Constitutional Vitals: Temp Pulse Resp BP Pulse Ox 98.3 F 80 20 121/77 96 08/27/16 07:18 08/27/16 07:18 08/27/16 07:18 08/27/16 07:18 08/27/16 07:18
[2016-08-27] MEDS: Budesonide/Formoterol 160/4.5 MDI IH SCH (10:34)
[2016-08-27] MEDS: Levalbuterol Neb 1.25 MG/3 ML IH PRN (13:49)
== END 2016-08-27 14:35 | disposition home or self-care (01) ==
LOC: EMEROOPIK 15:20 → INPPIK 15:20
PROVIDERS: ADMIT Internal Medicine; ATTEND Internal Medicine

== ENCOUNTER 2016-10-02 15:37 | Observation (INO) ==
[2016-10-02] MEDS ORDERED: Levofloxacin 750 MG/150 ML 750 MG/150 ML BAG IVPB ONE (15:50)
[2016-10-02] MEDS ORDERED: Ipratropium/Albuterol Neb 3 ML IH ONE (15:50)
--- NOTE | 2016-10-02 15:50 | Emergency Department Note ---
Disposition Clinical Impression: Acute exacerbation of chronic obstructive airways disease Disposition: Admitted As Inpatient Condition: Fair Referrals: Kit Stern MD [Primary Care Provider] - Forms: ED Satisfaction Letter SOB HPI - General Chief Complaint: ED Shortness of Breath/Dyspnea Stated Complaint: Wheezing, Hallucinating, Bowels not moving Time Seen by Provider: 10/02/16 15:48 Source: patient, EMS Mode of arrival: EMS Limitations: physical limitation Nursing Notes Reviewed: Yes Vital Signs Reviewed: Yes - History of Present Illness The patient presented with several complaints. Primarily she states she has had increased shortness of breath with a nonproductive cough and dense wheezing. She has been doing her home aerosols and is still on antibiotics and steroids. She feels that she is getting progressively worse. She has increased weakness and fatigue. During this time she has had decreased colostomy output and has just put some firm stool into the colostomy today. She has not been having abdominal pain, vomiting or any bloody or black. She denies that she has been having fevers, chills or sweats. She denies any new extremity swelling or pain. She rates she has been taking all of her medications regularly. With her weakness, dyspnea and stool complaints she called the squad for transport. Pt Subjective Complaint: shortness of breath Onset (ago): day(s) Context: recent illness Severity: moderate Consistency/Duration: gradually worsening Improves with: oxygen, bronchodilators Worsens with: exertion, coughing Known history of: COPD Associated symptoms: Reports: cough, wheezing. Denies: chest pain, pain with inspiration, fever, sputum production, orthopnea, lower extremity pain, polyuria , polydipsia, parasthesias, palpitations, hemoptysis, diaphoresis, nausea/ vomiting, syncope, abdominal pain, rash Treatment prior to arrival: oxygen, bronchodilator Cough present: Yes Cough Description: Voluntary, Non-Productive, Hacking Cough Frequency: Intermittent Sputum production: No - Related Data Home oxygen amount: 2 liters Home Medications Medication Instructions Recorded Confirmed Melatonin 3 mg PO HS PRN 01/23/15 08/23/16 Roflumilast [Daliresp] 500 mcg PO DAILY 09/17/15 08/23/16 Budesonide/Formoterol 160/4.5 2 puff IH BID 03/20/16 08/23/16 [Symbicort 160/4.5] Cyclobenzaprine [Flexeril] 5 mg PO TID 03/20/16 08/23/16 HYDROcodone/Acet 10/325 mg [[place] 1 tab PO Q6HR PRN 03/20/16 08/23/16 10-325 mg] Warfarin Sodium 3 mg PO QPM 03/20/16 08/23/16 Ergocalciferol (VITAMIN D2) 50,000 unit PO 2XW 03/26/16 08/23/16 [Vitamin D2 (50,000 UNIT)] Multivitamin [Multi-Day Vitamins] 1 tab PO DAILY 03/26/16 08/23/16 Diltiazem CD (24hr) [Cardizem CD] 180 mg PO BID 08/23/16 08/23/16 Albuterol Sulfate [Albuterol 2 aerosol PO Q4HR PRN 08/28/16 08/28/16 Inhaler] Magnesium Oxide 400 mg PO PRN PRN 08/28/16 08/28/16 Reglan 5 mg PO QID 08/28/16 08/28/16 Previous Rx's Medication Instructions Recorded Montelukast [Singulair] 10 mg PO DAILY #30 tablet 02/14/15 Ondansetron ODT [Zofran ODT] 4 mg SL Q6HR PRN #8 tab.rapdis 01/30/16 Atorvastatin [Lipitor] 10 mg PO HS 30 Days 03/31/16 Sotalol [Betapace] 80 mg PO Q12H 30 Days 03/31/16 Levalbuterol Neb [Xopenex Neb] 1.25 mg IH Q4HR PRN 30 Days 05/31/16 LORazepam [Ativan] 1 mg PO Q6H #28 tablet 08/08/16 Cefuroxime PO [Ceftin] 500 mg PO Q12HR #6 tablet 08/27/16 Lactobacillus [Culturelle] 1 each PO BID #6 cap.sprink 08/27/16 HydrOXYzine Pamoate 25 mg PO TID #21 capsule 09/19/16 PredniSONE 40 mg PO DAILY #10 tablet 09/19/16 Allergies Allergy/AdvReac Type Severity Reaction Status Date / Time methyl salicylate Allergy See Verified 09/19/16 18:07 Comments metronidazole [From Flagyl] Allergy Hives Verified 09/19/16 18:07 orange juice [[place] Juice] Allergy Swelling Verified 09/19/16 18:07 of Lip/Tongue/Throat sertraline [From Zoloft] Allergy Agitated Verified 09/19/16 18:07 vancomycin Allergy Vomiting Verified 09/19/16 18:07 fidaxomicin [From Dificid] AdvReac Vomiting Verified 09/19/16 18:07 ketorolac [From Toradol] AdvReac Vomiting Verified 09/19/16 18:07 menthol AdvReac Difficulty Verified 09/19/16 18:07 Breathing meperidine [From Demerol] AdvReac Vomiting Verified 09/19/16 18:07 ropinirole [From Requip] AdvReac Vomiting Verified 09/19/16 18:07 simvastatin AdvReac Muscle Pain Verified 08/06/16 15:30 tramadol AdvReac Vomiting Verified 08/06/16 15:30 zolmitriptan AdvReac Agitated Verified 08/06/16 15:30 All systems ED: reviewed and negative except as stated. Past Medical History - Past Medical History Attestation: Yes The following information was validated with the patient. Source: patient, old records reviewed, nursing notes reviewed Medical history: Reports: asthma, atrial fibrillation, COPD, DVT, GERD, hyperlipidemia, hypertension, renal disease, SVT, thyroid disease Surgical history: Reports: cataract, cholecystectomy, colostomy, herniorrhaphy, IVC filter Psychiatric history: Reports: anxiety, depression, panic disorder DRAFTER CIVIL (CAD) history: Reports: no DRAFTER CIVIL (CAD) history - Social History Smoking Status: Former smoker Smokeless Tobacco Status: No Alcohol use: Reports: none Drug use: Reports: none Physical Exam - General Limitations: no limitations General appearance: alert, in distress - Head Head exam: atraumatic, normocephalic, normal inspection - Eye Eye exam: Present: normal appearance, PERRL, EOMI - ENT ENT exam: normal exam, normal oropharynx, mucous membranes moist - Neck Neck exam: Present: normal inspection, full ROM, trachea midline - Chest Chest inspection: Present: normal inspection, symmetric chest wall rise - Respiratory Respiratory exam: Present: respiratory distress, wheezes, prolonged expiratory phase. Absent: accessory muscle use - Cardiovascular Cardiovascular exam: Present: regular rate, normal rhythm, tachycardia, normal heart sounds - Abdominal Exam Abdominal exam: Present: soft, Non-Tender, normal bowel sounds, other (Firm stool present in the colostomy bag. This is without blood or mucus.). Absent: tenderness, distention, guarding, rebound, rigidity - Extremities Exam Extremities exam: Present: normal inspection, full ROM, normal capillary refill. Absent: tenderness, pedal edema, calf tenderness - Expanded Lower Extremity Exam Neurovascular/Tendon exam: Present: normal capillary refill. Absent: motor deficit, sensory deficit, tendon deficit Gait: not tested/not observed - Back Exam Back exam: Present: normal inspection, full ROM. Absent: tenderness - Neurological Exam Neurological exam: Present: alert, oriented X3 - Psychiatric Psychiatric exam: Present: normal affect, normal mood - Skin Skin exam: Present: warm, dry, intact, normal color. Absent: diaphoresis, pallor Course Course Narrative: 1709: Care discussed with Dr. Ewing was given verbal orders for this patient's observation to the hospital. Vital Signs Temperature 98.2 F 10/02/16 15:43 Pulse Rate 109 10/02/16 15:43 Respiratory Rate 20 10/02/16 15:43 Blood Pressure 161/95 10/02/16 15:43 O2 Sat by Pulse Oximetry 96 10/02/16 15:43 Temperature 98.2 F 10/02/16 16:51 Pulse Rate 98 10/02/16 16:51 Respiratory Rate 20 10/02/16 16:51 Blood Pressure 141/95 10/02/16 16:51 O2 Sat by Pulse Oximetry 97 10/02/16 16:51 Oxygen Delivery Oxygen Delivery Nasal Cannula Shortness of Breath/Dyspnea - Differential Diagnosis Likely: acute exacerbation of chronic obstructive airways disease, pneumonia - Medical Records Medical records reviewed: Yes I reviewed the patient's medical records. - Lab Data Lab results reviewed: Yes I reviewed the patient's lab results. Result diagrams: 10/02/16 16:12 10/02/16 16:12 Lab Results 10/02/16 10/02/16 10/02/16 Range/Units 16:12 16:12 16:12 WBC 16.5 H (4.3-11.1) K/mcL RBC 3.94 (3.82-4.97) M/mcL Hgb 12.3 (11.5-15.4) g/dL Hct 38.3 (35.3-44.9) % MCV 97.2 (83.0-100.0) fL MCH 31.2 (28.0-33.3) pg MCHC 32.1 (31.6-35.5) g/dL RDW 15.0 H (11.5-14.5) % Plt Count 378 (140-400) K/mcL MPV 8.7 L (9.4-12.4) fL Immature Gran % 1.9 (0-4) % Seg Neutrophils % 70.9 % Lymphocytes % 16.7 % Monocytes % 9.6 % Eosinophils % 0.5 % Basophils % 0.4 % Neutrophils # 11.7 H (1.6-8.9) K/mcL Lymphocytes # 2.8 (0.6-4.6) K/mcL Monocytes # 1.6 H (0.0-1.3) K/mcL Eosinophils # 0.1 (0.0-0.6) K/mcL Basophils # 0.1 (0.0-0.2) K/mcL ABG pH (7.32-7.45) pH Units ABG pCO2 (35-45) mmHg ABG pO2 (85-104) mmHg ABG HCO3 (21-27) mEQ/L ABG Total CO2 (20-26) mEq/L ABG O2 Saturation (95-98) % ABG Base Excess (-2.0 to 3.0) mEq/L Liter Flow L/MIN Blood Gas Modality Inspired O2 % Sodium 144 (136-145) mEq/L Potassium 3.1 L (3.5-4.5) mEq/L Chloride 102 (98-109) mEq/L Carbon Dioxide 30 H (19-29) mEq/L BUN 15 (7-20) mg/dL Creatinine 0.89 (0.57-1.11) mg/dL Est GFR ( Amer) > 60 (> 60) Est GFR (Non-Af Amer) > 60 (> 60) BUN/Creatinine Ratio 17 (6-26) Glucose 85 (70-99) mg/dL Calculated Osmolality 298 (280-300) Calcium 9.5 (8.6-10.8) mg/dL Troponin I 0.01 (0-0.03) ng/mL B-Natriuretic Peptide (0-100) pg/mL 10/02/16 10/02/16 Range/Units 16:12 16:48 WBC (4.3-11.1) K/mcL RBC (3.82-4.97) M/mcL Hgb (11.5-15.4) g/dL Hct (35.3-44.9) % MCV (83.0-100.0) fL MCH (28.0-33.3) pg MCHC (31.6-35.5) g/dL RDW (11.5-14.5) % Plt Count (140-400) K/mcL MPV (9.4-12.4) fL Immature Gran % (0-4) % Seg Neutrophils % % Lymphocytes % % Monocytes % % Eosinophils % % Basophils % % Neutrophils # (1.6-8.9) K/mcL Lymphocytes # (0.6-4.6) K/mcL Monocytes # (0.0-1.3) K/mcL Eosinophils # (0.0-0.6) K/mcL Basophils # (0.0-0.2) K/mcL ABG pH 7.36 (7.32-7.45) pH Units ABG pCO2 64 H (35-45) mmHg ABG pO2 113 H (85-104) mmHg ABG HCO3 36.2 H (21-27) mEQ/L ABG Total CO2 38.2 H (20-26) mEq/L ABG O2 Saturation 98 (95-98) % ABG Base Excess 8.8 H (-2.0 to 3.0) mEq/L Liter Flow 3 L/MIN Blood Gas Modality [place] Inspired O2 32 % Sodium (136-145) mEq/L Potassium (3.5-4.5) mEq/L Chloride (98-109) mEq/L Carbon Dioxide (19-29) mEq/L BUN (7-20) mg/dL Creatinine (0.57-1.11) mg/dL Est GFR ( Amer) (> 60) Est GFR (Non-Af Amer) (> 60) BUN/Creatinine Ratio (6-26) Glucose (70-99) mg/dL Calculated Osmolality (280-300) Calcium (8.6-10.8) mg/dL Troponin I (0-0.03) ng/mL B-Natriuretic Peptide 76 (0-100) pg/mL - Radiology Data Radiology results reviewed: Yes I reviewed the patient's radiology results. Single view chest x-ray is performed. This does not demonstrate evidence for infiltrate, effusion, pneumothorax, foreign body or heart failure. The cardiac silhouette is normal. I do not see abnormality to the osseous structures of the chest. This is on my interpretation. Impressions Chest X-Ray 10/02/16 15:50 IMPRESSION: No acute process. D/ / Huey Mason MD / Huey Mason MD Interpreting Provider: Huey Mason MD - EKG Data EKG attestation: Yes I reviewed and interpreted this EKG. EKG shows normal: Reports: sinus rhythm, axis, intervals, ST-T waves Rate: Reports: normal (93) [place]/QRS: Reports: LAHB/LAFB Interpretation: Reports: no acute changes, nonspecific ST-T wave changes
[2016-10-02 16:24] LABS: Basophils # 0.1 K/mcL (0.0-0.2); Basophils % 0.4 %; Eosinophils # 0.1 K/mcL (0.0-0.6); Eosinophils % 0.5 %; Hematocrit 38.3 % (35.3-44.9); Hemoglobin 12.3 g/dL (11.5-15.4); Immature Granulocytes % 1.9 % (0-4); Lymphocytes # 2.8 K/mcL (0.6-4.6); Lymphocytes % 16.7 %; Mean Corpuscular HGB Conc 32.1 g/dL (31.6-35.5); Mean Corpuscular Hemoglobin 31.2 pg (28.0-33.3); Mean Corpuscular Volume 97.2 fL (83.0-100.0); Mean Platelet Volume 8.7 fL (9.4-12.4); Monocytes # 1.6 K/mcL (0.0-1.3); Monocytes % 9.6 %; Neutrophils # 11.7 K/mcL (1.6-8.9); Platelet Count 378 K/mcL (140-400); Red Blood Count 3.94 M/mcL (3.82-4.97); Segmented Neutrophils % 70.9 %
[2016-10-02 16:40] LABS: BUN/Creatinine Ratio 17 (6-26); Blood Urea Nitrogen 15 mg/dL (7-20); Calcium 9.5 mg/dL (8.6-10.8); Carbon Dioxide 30 mEq/L (19-29); Chloride 102 mEq/L (98-109); Glucose 85 mg/dL (70-99); Osmolality,Calculated 298 (280-300); Potassium 3.1 mEq/L (3.5-4.5); Sodium 144 mEq/L (136-145); eGFR For African Americans > 60 (> 60); eGFR For Non-African Americans > 60 (> 60)
[2016-10-02 16:54] LABS: ABG PH 7.36 pH Units (7.32-7.45)
[2016-10-02 16:55] LABS: ABG Base Excess 8.8 mEq/L (-2.0 to 3.0); ABG HCO3 36.2 mEQ/L (21-27); ABG Oxygen Saturation 98 % (95-98); ABG PCO2 64 mmHg (35-45); ABG PO2 113 mmHg (85-104); ABG TCO2 38.2 mEq/L (20-26)
[2016-10-02 16:56] LABS: Blood Gas FiO2 32 %; Blood Gas Liter Flow 3 L/MIN
[2016-10-02 17:31] LABS: INR 1.3; Prothrombin Time 13.7 Seconds (9.4-12.1)
[2016-10-02] MEDS ORDERED: MOM Conc 10 ML UD.LIQ PO PRN (18:28)
[2016-10-02] MEDS ORDERED: 0.9 % Sodium Chloride 1,000 ML IVC SCH (18:28)
[2016-10-02] MEDS ORDERED: Naloxone 0.4 MG/ML INJ IVP PRN (18:28)
[2016-10-02] MEDS ORDERED: Ondansetron 4 MG/2 ML VIAL IVP PRN (18:28)
[2016-10-02] MEDS: *HR* LORazepam 1 MG TABLET PO SCH (21:19)
[2016-10-02] MEDS: *HR* HYDROcodone/Acet 10/325 mg TABLET PO PRN (21:19)
[2016-10-02] MEDS: Diltiazem CD (24hr) 180 MG CAPSULE PO SCH (22:03)
[2016-10-02] MEDS: Ipratropium/Albuterol Neb 3 ML IH SCH (22:05)
[2016-10-03 00:20] LABS: ABG PCO2 55 mmHg (35-45); ABG PH 7.42 pH Units (7.32-7.45); ABG PO2 67 mmHg (85-104)
[2016-10-03 00:21] LABS: ABG Base Excess 11.6 mEq/L (-2.0 to 3.0); ABG HCO3 36 mEQ/L (21-27); ABG Oxygen Saturation 93 % (95-98); ABG TCO2 37.7 mEq/L (20-26); Blood Gas Liter Flow 2 L/MIN
[2016-10-03] MEDS: Ipratropium/Albuterol Neb 3 ML IH SCH ×4 (03:58→22:26)
[2016-10-03 06:00] LABS: Basophils % 0.3 %; Hematocrit 35.9 % (35.3-44.9); Hemoglobin 11.3 g/dL (11.5-15.4); Immature Granulocytes % 1.8 % (0-4); Lymphocytes % 8.5 %; Mean Corpuscular HGB Conc 31.5 g/dL (31.6-35.5); Mean Corpuscular Hemoglobin 30.5 pg (28.0-33.3); Mean Corpuscular Volume 96.8 fL (83.0-100.0); Mean Platelet Volume 9.3 fL (9.4-12.4); Monocytes # 0.2 K/mcL (0.0-1.3); Monocytes % 1.7 %; Platelet Count 311 K/mcL (140-400); Red Blood Count 3.71 M/mcL (3.82-4.97); Red Cell Distribution Width 14.9 % (11.5-14.5); Segmented Neutrophils % 87.7 %
[2016-10-03] MEDS: *HR* HYDROcodone/Acet 10/325 mg TABLET PO PRN ×3 (06:03→22:07)
[2016-10-03] MEDS: *HR* LORazepam 1 MG TABLET PO SCH ×4 (08:11→22:06)
[2016-10-03] MEDS: Diltiazem CD (24hr) 180 MG CAPSULE PO SCH ×2 (08:11→22:08)
[2016-10-03] MEDS: PredniSONE 20 MG TABLET PO SCH (08:11)
[2016-10-03] MEDS: Levofloxacin 750 MG/150 ML 750 MG/150 ML BAG IVPB SCH (08:12)
--- NOTE | 2016-10-03 09:26 | Electrocardiograph Report ---
[address] [address] Test Date: 2016-10-02 Pat Name: Meg Stern Department: [id number] Room: [facility] Gender: F Res Counselor: [id number] : 1955 Requested By: Dwaine Mcnair Order Number: [id number] Reading MD: Octavio Holbrook DO Measurements Intervals [place] Rate: 93 P: -59 WV: 160 QRS: -58 QRSD: 90 T: 32 QT: 345 QTc: 396 Interpretive Statements SINUS RHYTHM WITH OCCASIONAL SUPRAVENTRICULAR PREMATURE COMPLEXES LOW QRS VOLTAGE PATTERN CONSISTENT WITH PULMONARY DISEASE LEFT AXIS DEVIATION Electronically Signed On 10-03-2016 9:24:09 EDT by Octavio Holbrook DO
--- NOTE | 2016-10-03 15:16 | Internal Med History&Physical ---
Date of Encounter: 10/03/16 Time of Encounter: 14:45 Assessment and Plan (1) Hypokalemia Current visit: Yes Status: Acute She will be given supplemental potassium. Labs will be rechecked in a.m. (2) COPD (chronic obstructive pulmonary disease) Current visit: No Status: Chronic Continue home regimen. Qualifiers: COPD type: unspecified COPD Qualified Code(s): J44.9 - Chronic obstructive pulmonary disease, unspecified (3) Weakness Current visit: Yes Status: Acute She will have PT and OT evaluation. Supplemental potassium will be given as per above. Further workup done as needed. Internal Medicine - H&P: HPI Chief complaint: Weakness Admitted From: Home Plans for Post Hospital Care: Home History of present illness: Ms. Stern is a 61 year old female who came to the emergency room stating she had fallen at home October 01 while standing. She states the reason for the fall was that she became week and unable to stand. She denies syncope. There was no significant injury sustained. She was unable to get off the floor independently. She was helped to bed. The following day she tried to stand and still felt weak. She came to emergency room and was evaluated. She was found to have hypokalemia with potassium 3.1. She had leukocytosis but no significant left shift. She was admitted to [facility] floor for ongoing care needs. She was hospitalized last at [facility] approximately 4 weeks ago with exacerbation of COPD. She denies vomiting, diarrhea, or diuretic use. Past Med Surg Social Fam HX - Past Medical History Medical history: asthma, atrial fibrillation, COPD, DVT, GERD, hyperlipidemia, hypertension, renal disease, SVT, thyroid disease Psychiatric history: anxiety, depression, panic disorder - Past Surgical History Surgical History: cataract, cholecystectomy, colostomy, herniorrhaphy, IVC filter - Social History Smoking Status: Former smoker Smokeless Tobacco Status: No Alcohol use: none Drug use: none - Family History Father Family Member Ethnicity: Non- Living Status: Hx Family Cardiac Disorders: Yes ( of [facility] at 58) Internal Medicine - H&P: Meds Melatonin 3 mg PO HS PRN 01/23/15 [History] Montelukast [Singulair] 10 mg PO DAILY #30 tablet 02/14/15 [Rx] Roflumilast [Daliresp] 500 mcg PO DAILY 09/17/15 [History] Ondansetron ODT [Zofran ODT] 4 mg SL Q6HR PRN #8 tab.rapdis 01/30/16 [Rx] Budesonide/Formoterol 160/4.5 [Symbicort 160/4.5] 2 puff IH BID 03/20/16 [ History] Cyclobenzaprine [Flexeril] 5 mg PO TID 03/20/16 [History] HYDROcodone/Acet 10/325 mg [[place] 10-325 mg] 1 tab PO Q6HR PRN 03/20/16 [History ] Warfarin Sodium 3 mg PO QPM 03/20/16 [History] Ergocalciferol (VITAMIN D2) [Vitamin D2 (50,000 UNIT)] 50,000 unit PO 2XW [History] Multivitamin [Multi-Day Vitamins] 1 tab PO DAILY 03/26/16 [History] Atorvastatin [Lipitor] 10 mg PO HS 30 Days 03/31/16 [Rx] Sotalol [Betapace] 80 mg PO Q12H 30 Days 03/31/16 [Rx] Levalbuterol Neb [Xopenex Neb] 1.25 mg IH Q4HR PRN 30 Days 05/31/16 [Rx] LORazepam [Ativan] 1 mg PO Q6H #28 tablet 08/08/16 [Rx] Diltiazem CD (24hr) [Cardizem CD] 180 mg PO BID 08/23/16 [History] Albuterol Sulfate [Albuterol Inhaler] 2 aerosol PO Q4HR PRN 08/28/16 [History] Magnesium Oxide 400 mg PO PRN PRN 08/28/16 [History] Reglan 5 mg PO TID 08/28/16 [History] HydrOXYzine Pamoate 25 mg PO TID PRN 10/02/16 [History] Pantoprazole Sodium [Protonix] 40 mg PO QAM 10/02/16 [History] Allergies methyl salicylate Allergy (Verified 09/19/16 18:07) See Comments metronidazole [From Flagyl] Allergy (Verified 09/19/16 18:07) Hives orange juice [[place] Juice] Allergy (Verified 09/19/16 18:07) Swelling of Lip/Tongue/Throat sertraline [From Zoloft] Allergy (Verified 09/19/16 18:07) Agitated vancomycin Allergy (Verified 09/19/16 18:07) Vomiting fidaxomicin [From Dificid] Adverse Reaction (Verified 09/19/16 18:07) Vomiting ketorolac [From Toradol] Adverse Reaction (Verified 09/19/16 18:07) Vomiting menthol Adverse Reaction (Verified 09/19/16 18:07) Difficulty Breathing meperidine [From Demerol] Adverse Reaction (Verified 09/19/16 18:07) Vomiting ropinirole [From Requip] Adverse Reaction (Verified 09/19/16 18:07) Vomiting simvastatin Adverse Reaction (Verified 08/06/16 15:30) Muscle Pain tramadol Adverse Reaction (Verified 08/06/16 15:30) Vomiting zolmitriptan Adverse Reaction (Verified 08/06/16 15:30) Agitated All Systems PM: A 10-system review of systems was performed and is negative for pertinent findings except as documented above in the HPI. Review of systems: Review of systems from the August 2016 [facility] hospitalization were reviewed and revised as below. Gen.: Her weight has increased from approximately 150 pounds June 2015 to present weight of approximately 167 pounds. Cardiovascular: She has hypertension. She has paroxysmal atrial fibrillation and was hospitalized for this at [facility] March 2016 and was initially placed on Rythmol but later changed to sotalol. She had DVT with pulmonary embolus July 2014 and had IVC filter placed at [facility]. She was initially placed on Coumadin but this was discontinued after approximately 3 months and she was placed on Xarelto. She developed nosebleeds and other complications so was restarted back on Coumadin after a few weeks. She had another pulmonary embolism February 2015 at [facility] after bowel surgery.She had a limited echocardiogram done 03/21/2016 which showed normal LV size. The LVEF was 55%. There was mild diastolic dysfunction reported on an September 2015 echo but no significant valvular abnormality seen. Left atrial size was normal at 3.30 cm. She had a heart catheter 2008 and an exercise stress test June 2012 which were negative. Respiratory: She smoked from age [age] up to 3 packs per day. She had pulmonary function test done 09/15/2015 which showed very severe COPD. She follows with Dr. Jarvis at [facility]. She wears oxygen 24/7 at 2 L/m. She has had negative workup for sleep apnea in the past. She considered lung transplant at one time for COPD but decided against that. She is been hospitalized many times at [facility] the past few years with dyspnea. Her most recent chest CT was 04/15/2016 which showed no acute abnormalities. GI: She is status post cholecystectomy. She had polyps seen on a 2005 colonoscopy but has not had follow-up procedure done. She had an EGD approximately 2006. She denies other liver or exocrine pancreas disorders. She had segmental resection of colon secondary to diverticulitis with perforation February 2015 at [facility]. Her postop course was complicated with pulmonary embolism. She had development of a colostomy and has been told she will not have a takedown procedure because of her severe COPD. : She had hematuria in the past that resolved. She denies other kidney or bladder disorders. She has had tubal ligation. Endocrine: She has hyperlipidemia but no known diabetes or thyroid disease. She has been diagnosed with vitamin D deficiency but her last vitamin D level was 30 on 11/08/2015. Neurologic: No history of large distribution strokes or seizures. Hematology/oncology: She has had anemia and B12 and iron deficiency past. She has not had documented internal malignancies. Psychiatric: She has anxiety and depression but no other mental health issues Musk skeletal: She has DJD and osteoporosis but no known gout. - Constitutional Vitals: Temp Pulse Resp BP Pulse Ox 98.6 F 93 18 131/84 97 10/03/16 12:09 10/03/16 12:09 10/03/16 12:09 10/03/16 12:09 10/03/16 12:09 Exam: Gen.: She is a well-developed well-nourished female who appears in minimal distress at present time. HEENT: Head is atraumatic and normocephalic. Eyes: EOMI. There is no scleral icterus. Mouth: Mucosa is moist. Neck: Supple and nontender. There is no thyromegaly or adenopathy noted. Heart: Regular with frequent ectopic beats. No murmurs are heard. Lungs: She has diminished breath sounds diffusely. No wheezes or crackles are heard. Abdomen: She has an ostomy with stool in the left abdominal area. There is a midline incision with a small viki-incisional hernia in the proximal portion on the right side. No masses or guarding are noted. Extremities: There is no cyanosis edema or clubbing noted. Dorsalis pedis and posterior tibial pulses are trace palpable bilaterally. Neurologic: Mental status: She is talkative and a good historian. Cranial nerves: Smile is symmetric. Forehead wrinkles bilaterally. Tongue protrudes midline. EOMI. Motor: There is no pronator drift. Cerebellar: Finger to nose is intact bilaterally. Skin: Warm and dry Internal Med - H&P Results - Labs CBC & Chem 7: 10/03/16 04:35 10/02/16 16:12 Labs: Short CBC 10/03/16 Range/Units 04:35 WBC 11.4 H (4.3-11.1) K/mcL Hgb 11.3 L (11.5-15.4) g/dL Hct 35.9 (35.3-44.9) % Plt Count 311 (140-400) K/mcL Neutrophils # 10.0 H (1.6-8.9) K/mcL - ABG Interpretation ABG results: 10/03/16 00:10 ABG pH 7.42 ABG pCO2 55 H ABG pO2 67 L ABG HCO3 36 H ABG Total CO2 37.7 H ABG O2 Saturation 93 L ABG Base Excess 11.6 H - VTE Documentation of Mechanical Device: Graduated compression elastic hosiery
[2016-10-03] MEDS ORDERED: Albuterol 2.5 MG/3 ML NEBULIZER IH PRN (16:24)
[2016-10-03 17:49] LABS: Bilirubin,Urine Negative (Negative); Blood,Urine Moderate (Negative); Clarity,Urine Clear (Clear); Color,Urine Yellow (Yellow); Glucose,Urine (UA) Normal (Normal); Ketones,Urine Trace mg/dL (Negative); Leukocyte Esterase,Urine Negative (Negative); Nitrite,Urine Negative (Negative); PH,Urine 5.5 pH Units (5.0-8.0); Protein,Urine 30 mg/dL (Neg-Trace); Specific Gravity,Urine >= 1.030 (1.010-1.025); Urobilinogen,Urine Normal (Normal)
[2016-10-03 17:55] LABS: Bacteria,Urine Few per hpf (None-Few); Hyaline Casts,Urine Few per lpf (None-Few); Mucus,Urine Moderate (Few); Squamous Epithelial Cell,Urine Few per lpf (None-Few)
[2016-10-04] MEDS: Ipratropium/Albuterol Neb 3 ML IH SCH ×4 (04:25→22:44)
[2016-10-04 05:51] LABS: Basophils % 0.2 %; Hemoglobin 11.8 g/dL (11.5-15.4); Immature Granulocytes % 1.9 % (0-4); Lymphocytes # 1.4 K/mcL (0.6-4.6); Lymphocytes % 8.7 %; Mean Corpuscular HGB Conc 32.8 g/dL (31.6-35.5); Mean Corpuscular Hemoglobin 31.1 pg (28.0-33.3); Mean Platelet Volume 9.3 fL (9.4-12.4); Monocytes # 1.2 K/mcL (0.0-1.3); Monocytes % 7.4 %; Neutrophils # 13.2 K/mcL (1.6-8.9); Platelet Count 343 K/mcL (140-400); Red Blood Count 3.79 M/mcL (3.82-4.97); Red Cell Distribution Width 14.6 % (11.5-14.5); Segmented Neutrophils % 81.8 %
[2016-10-04 06:13] LABS: Alanine Aminotransferase 13 Units/L (0-55); Albumin/Globulin Ratio 1.3 (1.1-2.2); Alkaline Phosphatase 49 Units/L (38-126); Aspartate Amino Transferase 10 Units/L (5-34); BUN/Creatinine Ratio 28 (6-26); Bilirubin,Total 0.3 mg/dL (0.2-1.2); Blood Urea Nitrogen 21 mg/dL (7-20); Calcium 9.6 mg/dL (8.6-10.8); Carbon Dioxide 27 mEq/L (19-29); Chloride 102 mEq/L (98-109); Globulin 2.4 g/dL (2.4-3.5); Glucose 110 mg/dL (70-99); Magnesium 1.7 mg/dL (1.6-2.6); Osmolality,Calculated 300 (280-300); Potassium 4.1 mEq/L (3.5-4.5); Sodium 143 mEq/L (136-145); Total Protein 5.4 g/dL (6.0-8.3); eGFR For African Americans > 60 (> 60); eGFR For Non-African Americans > 60 (> 60)
[2016-10-04] MEDS: PredniSONE 20 MG TABLET PO SCH (07:57)
[2016-10-04] MEDS: *HR* LORazepam 1 MG TABLET PO SCH ×4 (07:57→20:44)
[2016-10-04] MEDS: Diltiazem CD (24hr) 180 MG CAPSULE PO SCH ×2 (07:57→20:43)
[2016-10-04] MEDS: Levofloxacin 750 MG/150 ML 750 MG/150 ML BAG IVPB SCH (07:58)
[2016-10-04] MEDS: *HR* HYDROcodone/Acet 10/325 mg TABLET PO PRN ×3 (08:11→20:45)
[2016-10-04] MEDS ORDERED: PredniSONE 20 MG TABLET PO SCH (09:32)
--- NOTE | 2016-10-04 09:33 | Internal Med Progress Note ---
Date of Encounter: 10/04/16 Time of Encounter: 09:20 - Assessment and plan (1) Hypokalemia Current Visit: Yes Status: Acute Assessment and plan: October 04. Resolved. We will reduce supplemental potassium dose. (2) COPD (chronic obstructive pulmonary disease) Current Visit: No Status: Chronic Assessment and plan: October 04. Continue home regimen Qualifiers: COPD type: unspecified COPD Qualified Code(s): J44.9 - Chronic obstructive pulmonary disease, unspecified (3) Weakness Current Visit: Yes Status: Acute Assessment and plan: October 04. Continue PT and OT intervention. - Subjective Interval history: October 04. She has no new complaints and feels stronger. She does not feel quite back to her baseline. - Constitutional Vitals: Temp Pulse Resp BP Pulse Ox 98.4 F 88 16 111/70 96 10/04/16 06:24 10/04/16 06:24 10/04/16 06:24 10/04/16 06:24 10/04/16 06:24 Exam: She is resting comfortably in bed. Her lungs show no wheezing. Her affect is bright and cheerful. Heart is regular without murmurs gallops or ectopics. I reviewed her medications and lab results. Internal Medicine: Result - Labs CBC & Chem 7: 10/04/16 04:35 10/04/16 04:35 Labs: Short CBC 10/04/16 Range/Units 04:35 WBC 16.1 H (4.3-11.1) K/mcL Hgb 11.8 (11.5-15.4) g/dL Hct 36.0 (35.3-44.9) % Plt Count 343 (140-400) K/mcL Neutrophils # 13.2 H (1.6-8.9) K/mcL BMP 10/04/16 04:35 Sodium 143 Potassium 4.1 D Chloride 102 Carbon Dioxide 27 BUN 21 H Creatinine 0.76 Glucose 110 H Calcium 9.6 Liver Function 10/04/16 Range/Units 04:35 Total Bilirubin 0.3 (0.2-1.2) mg/dL AST 10 (5-34) Units/L ALT 13 (0-55) Units/L Alkaline Phosphatase 49 (38-126) Units/L Albumin 3.0 L (3.5-5.0) g/dL Urine 10/03/16 Range/Units 17:40 Urine Color Yellow (Yellow) Urine Clarity Clear (Clear) Urine pH 5.5 (5.0-8.0) pH Units Ur Specific [place] >= 1.030 H (1.010-1.025) Urine Protein 30 H (Neg-Trace) mg/dL Urine Glucose (UA) Normal (Normal) mg/dL - ABG Interpretation ABG results: ABG ABG pH 7.42 pH Units (7.32-7.45) 10/03/16 00:10 ABG pCO2 55 mmHg (35-45) H 10/03/16 00:10 ABG pO2 67 mmHg (85-104) L 10/03/16 00:10 ABG O2 Saturation 93 % (95-98) L 10/03/16 00:10 PT/INR, D-dimer PT 13.7 Seconds (9.4-12.1) H 10/02/16 16:12 - VTE Documentation of Mechanical Device: Graduated compression elastic hosiery Consult Discharge Plan - Plan Referrals: Kit Stern MD [Primary Care Provider] - 1 week
[2016-10-04] MEDS: Budesonide/Formoterol 160/4.5 MDI IH SCH ×2 (10:08→22:44)
[2016-10-04] MEDS ORDERED: *HR* Warfarin 3 MG TABLET PO ONE (18:00)
[2016-10-05] MEDS: Ipratropium/Albuterol Neb 3 ML IH SCH ×3 (04:19→15:41)
[2016-10-05 06:06] LABS: Basophils % 0.3 %; Eosinophils % 0.1 %; Hematocrit 34.6 % (35.3-44.9); Hemoglobin 11.2 g/dL (11.5-15.4); Immature Granulocytes % 4.1 % (0-4); Lymphocytes # 1.8 K/mcL (0.6-4.6); Lymphocytes % 14.8 %; Mean Corpuscular HGB Conc 32.4 g/dL (31.6-35.5); Mean Corpuscular Hemoglobin 31.2 pg (28.0-33.3); Mean Corpuscular Volume 96.4 fL (83.0-100.0); Mean Platelet Volume 9.2 fL (9.4-12.4); Monocytes # 1.2 K/mcL (0.0-1.3); Monocytes % 9.5 %; Neutrophils # 8.6 K/mcL (1.6-8.9); Nucleated Red Blood Cells 0.2 /100 WBC (0); Platelet Count 315 K/mcL (140-400); Red Blood Count 3.59 M/mcL (3.82-4.97); Red Cell Distribution Width 14.6 % (11.5-14.5); Segmented Neutrophils % 71.2 %
[2016-10-05] MEDS: *HR* HYDROcodone/Acet 10/325 mg TABLET PO PRN ×2 (06:38→13:13)
[2016-10-05] MEDS: Levofloxacin 750 MG/150 ML 750 MG/150 ML BAG IVPB SCH (08:47)
[2016-10-05] MEDS: Diltiazem CD (24hr) 180 MG CAPSULE PO SCH (08:48)
[2016-10-05] MEDS: *HR* LORazepam 1 MG TABLET PO SCH ×3 (08:49→18:26)
[2016-10-05] MEDS: Budesonide/Formoterol 160/4.5 MDI IH SCH (09:57)
[2016-10-05 10:56] VITALS: BP 109/74
--- NOTE | 2016-10-05 11:54 | Discharge Summary ---
Date of Encounter: 10/05/16 Time of Encounter: 11:40 - Discharge Diagnosis (1) Hypokalemia Priority: Primary Status: Resolved (2) COPD (chronic obstructive pulmonary disease) Priority: Secondary Status: Chronic Qualifiers: COPD type: unspecified COPD Qualified Code(s): J44.9 - Chronic obstructive pulmonary disease, unspecified (3) Weakness Priority: Secondary Status: Acute - Discharge Medications Prescriptions: Lactobacillus [Culturelle] 1 each PO BID #6 cap.sprink Levofloxacin [Levaquin] 500 mg PO DAILY #3 tablet Home Medications: Melatonin 3 mg PO HS PRN 01/23/15 [History] Montelukast [Singulair] 10 mg PO DAILY #30 tablet 02/14/15 [Rx] Roflumilast [Daliresp] 500 mcg PO DAILY 09/17/15 [History] Ondansetron ODT [Zofran ODT] 4 mg SL Q6HR PRN #8 tab.rapdis 01/30/16 [Rx] Budesonide/Formoterol 160/4.5 [Symbicort 160/4.5] 2 puff IH BID 03/20/16 [ History] Cyclobenzaprine [Flexeril] 5 mg PO TID 03/20/16 [History] HYDROcodone/Acet 10/325 mg [[place] 10-325 mg] 1 tab PO Q6HR PRN 03/20/16 [History ] Warfarin Sodium 3 mg PO QPM 03/20/16 [History] Ergocalciferol (VITAMIN D2) [Vitamin D2 (50,000 UNIT)] 50,000 unit PO 2XW [History] Multivitamin [Multi-Day Vitamins] 1 tab PO DAILY 03/26/16 [History] Atorvastatin [Lipitor] 10 mg PO HS 30 Days 03/31/16 [Rx] Sotalol [Betapace] 80 mg PO Q12H 30 Days 03/31/16 [Rx] Levalbuterol Neb [Xopenex Neb] 1.25 mg IH Q4HR PRN 30 Days 05/31/16 [Rx] LORazepam [Ativan] 1 mg PO Q6H #28 tablet 08/08/16 [Rx] Diltiazem CD (24hr) [Cardizem CD] 180 mg PO BID 08/23/16 [History] Albuterol Sulfate [Albuterol Inhaler] 2 aerosol PO Q4HR PRN 08/28/16 [History] Reglan 5 mg PO TID 08/28/16 [History] HydrOXYzine Pamoate 25 mg PO TID PRN 10/02/16 [History] Pantoprazole Sodium [Protonix] 40 mg PO QAM 10/02/16 [History] Lactobacillus [Culturelle] 1 each PO BID #6 cap.sprink 10/05/16 [Rx] Levofloxacin [Levaquin] 500 mg PO DAILY #3 tablet 10/05/16 [Rx] Allergies/Adverse Reactions: Allergies methyl salicylate Allergy (Verified 09/19/16 18:07) See Comments metronidazole [From Flagyl] Allergy (Verified 09/19/16 18:07) Hives orange juice [[employer] Juice] Allergy (Verified 09/19/16 18:07) Swelling of Lip/Tongue/Throat sertraline [From Zoloft] Allergy (Verified 09/19/16 18:07) Agitated vancomycin Allergy (Verified 09/19/16 18:07) Vomiting fidaxomicin [From Dificid] Adverse Reaction (Verified 09/19/16 18:07) Vomiting ketorolac [From Toradol] Adverse Reaction (Verified 09/19/16 18:07) Vomiting menthol Adverse Reaction (Verified 09/19/16 18:07) Difficulty Breathing meperidine [From Demerol] Adverse Reaction (Verified 09/19/16 18:07) Vomiting ropinirole [From Requip] Adverse Reaction (Verified 09/19/16 18:07) Vomiting simvastatin Adverse Reaction (Verified 08/06/16 15:30) Muscle Pain tramadol Adverse Reaction (Verified 08/06/16 15:30) Vomiting zolmitriptan Adverse Reaction (Verified 08/06/16 15:30) Agitated Date of admission: 10/02/16 17:36 Primary care physician: Kit Stern MD Consults: 10/03/16 15:26 Consult to Occupational Therapy [CONS] Routine Comment: Evaluate, develop and implement POC Consult to Physical Therapy [CONS] Routine Comment: Evaluate, develop and implement POC - Patient Status Disposition: Home Health Service Condition: Fair Functional capacity at discharge: uses cane/walker Overall status at discharge: patient is progressing back to baseline - Discharge Instructions Follow Up With: Kit Stern MD [Primary Care Provider] - 1 week - Diet and Activity Activity: resume usual activities as tolerated, wear oxygen at all times Diet: advance to your usual diet Hospital course: Ms. Stern is a 61 year old female who came to the emergency room stating she had fallen at home October 01 while standing. She states the reason for the fall was that she became week and unable to stand. She denies syncope. There was no significant injury sustained. She was unable to get off the floor independently. She was helped to bed. The following day she tried to stand and still felt weak. She came to emergency room and was evaluated. She was found to have hypokalemia with potassium 3.1. She had leukocytosis but no significant left shift. She was admitted to [facility] for ongoing care needs. Initial orders were written by the emergency room physician. I saw her on October 03 and performed a history and physical. She was given supplemental potassium and her level normalized by the following day. She had physical therapy and occupational therapy evaluations and achieved her goals but the day of discharge. She was started on IV Levaquin through emergency room and oral Levaquin will be continued for 3 additional days at discharge with lactobacillus. On October 05 I felt she was stable for discharge home. She will follow with Dr. Stern within 1 week. - Time Spent with Patient Total time spent providing and/or coordinating discharge services: - Constitutional Vitals: Temp Pulse Resp BP Pulse Ox 97.5 F L 79 17 109/74 98 10/05/16 10:55 10/05/16 10:55 10/05/16 10:55 10/05/16 10:55 10/05/16 10:55 - VTE Documentation of Mechanical Device: Graduated compression elastic hosiery
--- NOTE | 2016-10-05 11:58 | Physician Discharge Referral ---
Home Health/Hosp Referral Info Transfer to: Home Health Attending Provider: Gildardo Provider in Charge Post Discharge: PCP (Kit Stern M.D.) - Diagnosis (1) Hypokalemia Priority: Primary Status: Resolved (2) COPD (chronic obstructive pulmonary disease) Priority: Secondary Status: Chronic (3) Weakness Priority: Secondary Status: Acute - Respiratory Orders Oxygen / L per min (O2 at 2-4 L/m by nasal cannula /.) Smoking Cessation: Smoking cessation has been advised. For more information, call the [place] Tobacco Quit Line at 2-429-UZQL-NOW. - Diet/Nutrition Diet/Nutrition Orders: Regular - Activity Activity Orders: Walker - Services Needed Following services are medically necessary services: Nursing, Home Health Aide, Physical Therapy, Occupational Therapy - Transfer Medications Prescriptions: Lactobacillus [Culturelle] 1 each PO BID #6 cap.sprink Levofloxacin [Levaquin] 500 mg PO DAILY #3 tablet Home Medications: Melatonin 3 mg PO HS PRN 01/23/15 [History] Montelukast [Singulair] 10 mg PO DAILY #30 tablet 02/14/15 [Rx] Roflumilast [Daliresp] 500 mcg PO DAILY 09/17/15 [History] Ondansetron ODT [Zofran ODT] 4 mg SL Q6HR PRN #8 tab.rapdis 01/30/16 [Rx] Budesonide/Formoterol 160/4.5 [Symbicort 160/4.5] 2 puff IH BID 03/20/16 [ History] Cyclobenzaprine [Flexeril] 5 mg PO TID 03/20/16 [History] HYDROcodone/Acet 10/325 mg [[place] 10-325 mg] 1 tab PO Q6HR PRN 03/20/16 [History ] Warfarin Sodium 3 mg PO QPM 03/20/16 [History] Ergocalciferol (VITAMIN D2) [Vitamin D2 (50,000 UNIT)] 50,000 unit PO 2XW [History] Multivitamin [Multi-Day Vitamins] 1 tab PO DAILY 03/26/16 [History] Atorvastatin [Lipitor] 10 mg PO HS 30 Days 03/31/16 [Rx] Sotalol [Betapace] 80 mg PO Q12H 30 Days 03/31/16 [Rx] Levalbuterol Neb [Xopenex Neb] 1.25 mg IH Q4HR PRN 30 Days 05/31/16 [Rx] LORazepam [Ativan] 1 mg PO Q6H #28 tablet 08/08/16 [Rx] Diltiazem CD (24hr) [Cardizem CD] 180 mg PO BID 08/23/16 [History] Albuterol Sulfate [Albuterol Inhaler] 2 aerosol PO Q4HR PRN 08/28/16 [History] Reglan 5 mg PO TID 08/28/16 [History] HydrOXYzine Pamoate 25 mg PO TID PRN 10/02/16 [History] Pantoprazole Sodium [Protonix] 40 mg PO QAM 10/02/16 [History] Lactobacillus [Culturelle] 1 each PO BID #6 cap.sprink 10/05/16 [Rx] Levofloxacin [Levaquin] 500 mg PO DAILY #3 tablet 10/05/16 [Rx] Allergies/Adverse Reactions: Allergies methyl salicylate Allergy (Verified 09/19/16 18:07) See Comments metronidazole [From Flagyl] Allergy (Verified 09/19/16 18:07) Hives orange juice [[place] Juice] Allergy (Verified 09/19/16 18:07) Swelling of Lip/Tongue/Throat sertraline [From Zoloft] Allergy (Verified 09/19/16 18:07) Agitated vancomycin Allergy (Verified 09/19/16 18:07) Vomiting fidaxomicin [From Dificid] Adverse Reaction (Verified 09/19/16 18:07) Vomiting ketorolac [From Toradol] Adverse Reaction (Verified 09/19/16 18:07) Vomiting menthol Adverse Reaction (Verified 09/19/16 18:07) Difficulty Breathing meperidine [From Demerol] Adverse Reaction (Verified 09/19/16 18:07) Vomiting ropinirole [From Requip] Adverse Reaction (Verified 09/19/16 18:07) Vomiting simvastatin Adverse Reaction (Verified 08/06/16 15:30) Muscle Pain tramadol Adverse Reaction (Verified 08/06/16 15:30) Vomiting zolmitriptan Adverse Reaction (Verified 08/06/16 15:30) Agitated Certification: Further, I certify that my clinical findings support that this patient is homebound (i.e. absences from home require considerable and taxing effort and are for medical reasons or yarsani services or infrequently or short duration when for other reasons) because: Homebound Reason: Leaving home requires considerable and taxing effort due to condition (End-stage COPD) Attestation: My signature below is to certify that this patient is under my care and that I, or nurse practitioner, or a physician's medical assistant instructor working with me, has a face-to -face encounter with this patient.
== END 2016-10-05 18:40 | disposition home health service (06) ==
LOC: EMEROOPIK 15:37 → INPPIK 15:37
PROVIDERS: ADMIT Internal Medicine; ATTEND Internal Medicine

== ENCOUNTER 2016-10-27 08:32 | Observation (INO) ==
--- NOTE | 2016-10-27 08:48 | Emergency Department Note ---
Disposition Clinical Impression: Weakness Diarrhea Qualifiers: Diarrhea type: presumed infectious Qualified Code(s): A09 - Infectious gastroenteritis and colitis, unspecified COPD (chronic obstructive pulmonary disease) Qualifiers: COPD type: chronic bronchitis Chronic bronchitis type: simple Qualified Code(s) : J41.0 - Simple chronic bronchitis Disposition: Admitted As Inpatient Condition: Fair SOB HPI - General Chief Complaint: ED Shortness of Breath/Dyspnea Stated Complaint: SOB Time Seen by Provider: 10/27/16 08:43 Source: EMS Mode of arrival: EMS Limitations: no limitations Nursing Notes Reviewed: Yes Vital Signs Reviewed: Yes - History of Present Illness Patient is brought in by EMS with report of their being in an argument in the family this morning and the patient becoming anxious and having some shortness of breath. She arrives with mild tachycardia and visible dyspnea, that saying that she is no more short of breath than usual. She has not been having increased cough, fever or abnormal chest pain. She states she did have a fall in the last week has had a left rib still hurts. She denies abnormal weakness or dizziness. She denies any extremity swelling, immobilization or injury. She denied any normal abdominal pains or troubles. Pt Subjective Complaint: shortness of breath, anxiety Onset (ago): week(s) Context: anxiety Severity: moderate Consistency/Duration: constant ("Breathing about the same as usual") Improves with: oxygen, bronchodilators Worsens with: other (Situational stress) Known history of: COPD Associated symptoms: Reports: chest pain (Left side from reported rib fracture) , wheezing. Denies: pain with inspiration, fever, cough, sputum production, orthopnea, lower extremity pain, polyuria, polydipsia, parasthesias, palpitations, hemoptysis, diaphoresis, nausea/vomiting, syncope, abdominal pain , rash Treatment prior to arrival: oxygen, bronchodilator Cough present: Yes Cough Description: Voluntary (Chronic), Non-Productive Cough Frequency: Intermittent Sputum production: No - Related Data Home oxygen amount: 3 liters Home Medications Medication Instructions Recorded Confirmed Melatonin 3 mg PO HS PRN 01/23/15 10/27/16 Roflumilast [Daliresp] 500 mcg PO DAILY 09/17/15 10/27/16 Budesonide/Formoterol 160/4.5 2 puff IH BID 03/20/16 10/27/16 [Symbicort 160/4.5] Cyclobenzaprine [Flexeril] 5 mg PO TID 03/20/16 10/27/16 HYDROcodone/Acet 10/325 mg [Baylis 1 tab PO Q6HR PRN 03/20/16 10/27/16 10-325 mg] Warfarin Sodium 3 mg PO QPM 03/20/16 10/27/16 Ergocalciferol (VITAMIN D2) 50,000 unit PO 2XW 03/26/16 10/27/16 [Vitamin D2 (50,000 UNIT)] Multivitamin [Multi-Day Vitamins] 1 tab PO DAILY 03/26/16 10/27/16 Diltiazem CD (24hr) [Cardizem CD] 180 mg PO BID 08/23/16 10/27/16 Albuterol Sulfate [Albuterol 2 aerosol PO Q4HR PRN 08/28/16 10/27/16 Inhaler] Reglan 5 mg PO TID 08/28/16 10/27/16 Pantoprazole Sodium [Protonix] 40 mg PO QAM 10/02/16 10/27/16 hydrOXYzine pamoate [HydrOXYzine 25 mg PO TID PRN 10/02/16 10/27/16 Pamoate] Previous Rx's Medication Instructions Recorded Montelukast [Singulair] 10 mg PO DAILY #30 tablet 02/14/15 Ondansetron ODT [Zofran ODT] 4 mg SL Q6HR PRN #8 tab.rapdis 01/30/16 Atorvastatin [Lipitor] 10 mg PO HS 30 Days 03/31/16 Sotalol [Betapace] 80 mg PO Q12H 30 Days 03/31/16 Levalbuterol Neb [Xopenex Neb] 1.25 mg IH Q4HR PRN 30 Days 05/31/16 LORazepam [Ativan] 1 mg PO Q6H #28 tablet 08/08/16 Lactobacillus [Culturelle] 1 each PO BID #6 cap.sprink 10/05/16 levoFLOXacin [Levaquin] 500 mg PO DAILY #3 tablet 10/05/16 Allergies Allergy/AdvReac Type Severity Reaction Status Date / Time methyl salicylate Allergy See Verified 10/27/16 08:33 Comments metronidazole [From Flagyl] Allergy Hives Verified 10/27/16 08:33 orange juice [[place] Juice] Allergy Swelling Verified 10/27/16 08:33 of Lip/Tongue/Throat sertraline [From Zoloft] Allergy Agitated Verified 10/27/16 08:33 vancomycin Allergy Vomiting Verified 10/27/16 08:33 fidaxomicin [From Dificid] AdvReac Vomiting Verified 10/27/16 08:33 ketorolac [From Toradol] AdvReac Vomiting Verified 10/27/16 08:33 menthol AdvReac Difficulty Verified 10/27/16 08:33 Breathing meperidine [From Demerol] AdvReac Vomiting Verified 10/27/16 08:33 ropinirole [From Requip] AdvReac Vomiting Verified 10/27/16 08:33 simvastatin AdvReac Muscle Pain Verified 10/27/16 08:33 tramadol AdvReac Vomiting Verified 10/27/16 08:33 zolmitriptan AdvReac Agitated Verified 10/27/16 08:33 All systems ED: reviewed and negative except as stated. Past Medical History - Past Medical History Attestation: Yes The following information was validated with the patient. Source: patient, old records reviewed, obtained from family, nursing notes reviewed Medical history: Reports: asthma, atrial fibrillation, COPD, DVT, GERD, hyperlipidemia, hypertension, renal disease, SVT, thyroid disease Surgical history: Reports: cataract, cholecystectomy, colostomy, herniorrhaphy, IVC filter Psychiatric history: Reports: anxiety, depression, panic disorder IT CORPORATE RECRUITER history: Reports: no IT CORPORATE RECRUITER history - Social History Smoking Status: Former smoker Smokeless Tobacco Status: No Alcohol use: Reports: none Drug use: Reports: none Physical Exam - General Limitations: no limitations General appearance: alert, anxious - Head Head exam: atraumatic, normocephalic, normal inspection - Eye Eye exam: Present: normal appearance, PERRL, EOMI - ENT ENT exam: normal exam, normal oropharynx, mucous membranes moist - Neck Neck exam: Present: normal inspection, full ROM, trachea midline - Chest Chest inspection: Present: normal inspection, symmetric chest wall rise - Respiratory Respiratory exam: Present: respiratory distress (Tachypnea), wheezes, prolonged expiratory phase. Absent: accessory muscle use - Cardiovascular Cardiovascular exam: Present: regular rate, tachycardia, irregular rhythm, normal heart sounds - Abdominal Exam Abdominal exam: Present: soft, Non-Tender, normal bowel sounds, other (She has been stool in the colostomy bag which is slightly pink.). Absent: tenderness, distention, guarding, rebound, rigidity - Extremities Exam Extremities exam: Present: normal inspection, full ROM, normal capillary refill. Absent: tenderness, pedal edema, calf tenderness - Expanded Lower Extremity Exam Neurovascular/Tendon exam: Present: normal capillary refill. Absent: motor deficit, sensory deficit, tendon deficit Gait: not tested/not observed - Back Exam Back exam: Present: normal inspection, full ROM. Absent: tenderness, CVA tenderness (R), CVA tenderness (L) - Neurological Exam Neurological exam: Present: alert, oriented X3 - Psychiatric Psychiatric exam: Present: normal affect, normal mood - Skin Skin exam: Present: warm, dry, intact, normal color. Absent: diaphoresis, pallor Course Course Narrative: 0830: The patient does not have any new physical complaints or moist problems at this time. We did obtain a baseline EKG on her arrival and I do not believe other tests will be immediately helpful. I have advised her that we will observe her in the department to see how she is doing clinically with her respiratory status. 0930: Patient continues to oxygenate at 94% on 1-1/2 L nasal cannula. She is curled up resting comfortably and occasionally sleeping. I have talked to her about disposition and she states that her family would be able to take her home. 1015: The patient's family has arrived and are able to complete the story of the events of the morning. She had had her colostomy bag, and poor stool over her. Her daughter had come to try to help clean her out and could not get help from her . She states that he just stayed in the kitchen and continue to make himself breakfast. She relates she is having a hard time moving her mother around with her baseline weakness, dyspnea and "almost dropped her". Between the stool and the ongoing medical conditions, she "lost it". Her then called 911 to get her out of the house with statements that she was not to come back. The patient's daughter states that he then proceeded to throw all of her food out. She now does not have the ability to do her home aerosols or oxygen at the residence. The family also noted that she has been having severe diarrhea that is starting to get some blood in it and wonder if she may have C. difficile back. The patient had not previously mentioned this. This social situation establishes her as being unsafe for discharge at this time and I advised the family that I will speak to Dr. Ewing about possible observation and social service consultation. 1020: Dr. Ewing has advised that this patient's predicament. He is agreeable with having her in the hospital for dyspnea, diarrhea and weakness. He will have social media marketing specialist contribute to her care. Vital Signs Temperature 98.0 F 10/27/16 08:35 Pulse Rate 120 10/27/16 08:35 Respiratory Rate 24 10/27/16 08:35 Blood Pressure 122/86 10/27/16 08:35 O2 Sat by Pulse Oximetry 95 10/27/16 08:35 Temperature 98.0 F 10/27/16 08:37 Pulse Rate 118 10/27/16 11:00 Respiratory Rate 20 10/27/16 11:18 Blood Pressure 121/75 10/27/16 11:18 O2 Sat by Pulse Oximetry 93 10/27/16 11:00 Oxygen Delivery Oxygen Delivery Nasal Cannula Shortness of Breath/Dyspnea - Differential Diagnosis Likely: acute exacerbation of chronic obstructive airways disease, asthma with exacerbation - Medical Records Medical records reviewed: Yes I reviewed the patient's medical records. - Lab Data Lab results reviewed: Yes I reviewed the patient's lab results. Result diagrams: 10/27/16 10:35 10/27/16 10:35 Lab Results 10/27/16 10/27/16 10/27/16 Range/Units 10:35 10:35 10:35 WBC 17.9 H (4.3-11.1) K/mcL RBC 4.23 (3.82-4.97) M/mcL Hgb 13.0 (11.5-15.4) g/dL Hct 39.7 (35.3-44.9) % MCV 93.9 (83.0-100.0) fL MCH 30.7 (28.0-33.3) pg MCHC 32.7 (31.6-35.5) g/dL RDW 14.0 (11.5-14.5) % Plt Count 296 (140-400) K/mcL MPV 8.9 L (9.4-12.4) fL Immature Gran % 0.6 (0-4) % Seg Neutrophils % 74.0 % Lymphocytes % 11.2 % Monocytes % 11.5 % Eosinophils % 2.5 % Basophils % 0.2 % Neutrophils # 13.3 H (1.6-8.9) K/mcL Lymphocytes # 2.0 (0.6-4.6) K/mcL Monocytes # 2.1 H (0.0-1.3) K/mcL Eosinophils # 0.5 (0.0-0.6) K/mcL Basophils # 0.0 (0.0-0.2) K/mcL PT 14.7 H (9.4-12.1) Seconds INR 1.4 APTT 28.5 (26.0-36.0) Seconds Sodium 140 (136-145) mEq/L Potassium 3.6 (3.5-4.5) mEq/L Chloride 99 (98-109) mEq/L Carbon Dioxide 28 (19-29) mEq/L BUN 15 (7-20) mg/dL Creatinine 0.80 (0.57-1.11) mg/dL Est GFR ( Amer) > 60 (> 60) Est GFR (Non-Af Amer) > 60 (> 60) BUN/Creatinine Ratio 19 (6-26) Glucose 122 H (70-99) mg/dL Calculated Osmolality 292 (280-300) Calcium 9.3 (8.6-10.8) mg/dL Troponin I (0-0.03) ng/mL 10/27/16 Range/Units 10:35 WBC (4.3-11.1) K/mcL RBC (3.82-4.97) M/mcL Hgb (11.5-15.4) g/dL Hct (35.3-44.9) % MCV (83.0-100.0) fL MCH (28.0-33.3) pg MCHC (31.6-35.5) g/dL RDW (11.5-14.5) % Plt Count (140-400) K/mcL MPV (9.4-12.4) fL Immature Gran % (0-4) % Seg Neutrophils % % Lymphocytes % % Monocytes % % Eosinophils % % Basophils % % Neutrophils # (1.6-8.9) K/mcL Lymphocytes # (0.6-4.6) K/mcL Monocytes # (0.0-1.3) K/mcL Eosinophils # (0.0-0.6) K/mcL Basophils # (0.0-0.2) K/mcL PT (9.4-12.1) Seconds INR APTT (26.0-36.0) Seconds Sodium (136-145) mEq/L Potassium (3.5-4.5) mEq/L Chloride (98-109) mEq/L Carbon Dioxide (19-29) mEq/L BUN (7-20) mg/dL Creatinine (0.57-1.11) mg/dL Est GFR ( Amer) (> 60) Est GFR (Non-Af Amer) (> 60) BUN/Creatinine Ratio (6-26) Glucose (70-99) mg/dL Calculated Osmolality (280-300) Calcium (8.6-10.8) mg/dL Troponin I 0.00 (0-0.03) ng/mL - Radiology Data Radiology results reviewed: Yes I reviewed the patient's radiology results. Single view chest x-ray is performed. This does not demonstrate evidence for infiltrate, effusion, pneumothorax, foreign body or heart failure. The cardiac silhouette is normal. I do not see abnormality to the osseous structures of the chest. This is on my interpretation. Impressions Chest X-Ray 10/27/16 10:18 IMPRESSION: No acute cardiopulmonary process. D/ / 10/27/2016 11:00:22 Sanchez Shaver MD / [email or web address] Interpreting Provider: Sanchez Shaver MD - EKG Data EKG attestation: Yes I reviewed and interpreted this EKG. EKG shows normal: Reports: sinus rhythm, axis, intervals, ST-T waves Rate: Reports: tachycardia (121) Q waves: Reports: II, III, aVF QRS morphology: Reports: poor R-wave progression Interpretation: Reports: no acute changes, nonspecific ST-T wave changes
[2016-10-27 10:45] LABS: Basophils % 0.2 %; Eosinophils % 2.5 %; Hematocrit 39.7 % (35.3-44.9); Immature Granulocytes % 0.6 % (0-4); Lymphocytes % 11.2 %; Mean Corpuscular HGB Conc 32.7 g/dL (31.6-35.5); Mean Corpuscular Hemoglobin 30.7 pg (28.0-33.3); Mean Corpuscular Volume 93.9 fL (83.0-100.0); Mean Platelet Volume 8.9 fL (9.4-12.4); Monocytes # 2.1 K/mcL (0.0-1.3); Monocytes % 11.5 %; Neutrophils # 13.3 K/mcL (1.6-8.9); Platelet Count 296 K/mcL (140-400); Red Blood Count 4.23 M/mcL (3.82-4.97)
[2016-10-27 10:46] LABS: Eosinophils # 0.5 K/mcL (0.0-0.6)
[2016-10-27 10:49] LABS: INR 1.4; Prothrombin Time 14.7 Seconds (9.4-12.1)
[2016-10-27 10:52] LABS: Activated Partial Thrombo Time 28.5 Seconds (26.0-36.0)
[2016-10-27 10:56] LABS: BUN/Creatinine Ratio 19 (6-26); Blood Urea Nitrogen 15 mg/dL (7-20); Calcium 9.3 mg/dL (8.6-10.8); Carbon Dioxide 28 mEq/L (19-29); Chloride 99 mEq/L (98-109); Glucose 122 mg/dL (70-99); Osmolality,Calculated 292 (280-300); Potassium 3.6 mEq/L (3.5-4.5); Sodium 140 mEq/L (136-145); eGFR For African Americans > 60 (> 60); eGFR For Non-African Americans > 60 (> 60)
[2016-10-27] MEDS ORDERED: *HR* LORazepam 1 MG TABLET PO SCH (11:21)
[2016-10-27] MEDS ORDERED: hydrOXYzine pamoate 25 MG CAPSULE PO PRN (11:21)
[2016-10-27] MEDS ORDERED: Naloxone 0.4 MG/ML INJ IVP PRN (11:21)
[2016-10-27] MEDS ORDERED: Acetaminophen 325 MG TABLET PO PRN (11:21)
[2016-10-27] MEDS ORDERED: Melatonin 3 MG TABLET PO PRN (11:21)
[2016-10-27] MEDS ORDERED: Ondansetron 4 MG/2 ML VIAL IVP PRN (11:21)
[2016-10-27] MEDS: *HR* LORazepam 1 MG TABLET PO SCH ×2 (12:37→18:00)
[2016-10-27] MEDS: Levalbuterol Neb 1.25 MG/3 ML IH PRN ×2 (15:13→20:02)
[2016-10-27 15:33] LABS: ABG Base Excess 8.3 mEq/L (-2.0 to 3.0); ABG HCO3 32.6 mEQ/L (21-27); ABG Oxygen Saturation 96 % (95-98); ABG PCO2 49 mmHg (35-45); ABG PH 7.43 pH Units (7.32-7.45); ABG PO2 78 mmHg (85-104); ABG TCO2 34.1 mEq/L (20-26)
--- NOTE | 2016-10-27 15:51 | Internal Med History&Physical ---
Date of Encounter: 10/27/16 Time of Encounter: 15:20 Assessment and Plan (1) COPD (chronic obstructive pulmonary disease) Current visit: No Status: Chronic Continue Symbicort, Singulair, and prn nebulizers. She has been started on Levaquin. Qualifiers: COPD type: unspecified COPD Qualified Code(s): J44.9 - Chronic obstructive pulmonary disease, unspecified (2) History of DVT (deep vein thrombosis) Current visit: No Status: Chronic Continue Coumadin (3) Anxiety Current visit: No Status: Chronic We will order Ativan 1 mg every 6 hours. Internal Medicine - H&P: HPI Chief complaint: Dyspnea Admitted From: Home Plans for Post Hospital Care: Home History of present illness: Ms. Stern is a 61 year old female who came to the hospital stating she had malfunction of her ostomy bag with spillage of fecal contents earlier today approximately 0500. Her did not want to assist her in cleaning up. There were apparently angry words exchanged between the patient's and the patient's daughter. The argument caused the patient to become more dyspneic. She was brought to emergency room and felt to deserve admission until further disposition and her home situation could be determined. She is groggy at the present time and cannot clearly delineate the events of this morning. She reports her Ativan dose was increased to 2 mg 4 times a day by her PCP recently. She was discharged from [facility] a few weeks ago with Ativan dose recorded at 1 mg every 6 hours. Past Med Surg Social Fam HX - Past Medical History Medical history: asthma, atrial fibrillation, COPD, DVT, GERD, hyperlipidemia, hypertension, renal disease, SVT, thyroid disease Psychiatric history: anxiety, depression, panic disorder - Past Surgical History Surgical History: cataract, cholecystectomy, colostomy, herniorrhaphy, IVC filter - Social History Smoking Status: Former smoker Smokeless Tobacco Status: No Alcohol use: none Drug use: none - Family History Father Family Member Ethnicity: Non- Living Status: Hx Family Cardiac Disorders: Yes ( of [place] at 58) Internal Medicine - H&P: Meds Melatonin 3 mg PO HS PRN 01/23/15 [History] Montelukast [Singulair] 10 mg PO DAILY #30 tablet 02/14/15 [Rx] Roflumilast [Daliresp] 500 mcg PO DAILY 09/17/15 [History] Ondansetron ODT [Zofran ODT] 4 mg SL Q6HR PRN #8 tab.rapdis 01/30/16 [Rx] Budesonide/Formoterol 160/4.5 [Symbicort 160/4.5] 2 puff IH BID 03/20/16 [ History] Cyclobenzaprine [Flexeril] 5 mg PO TID 03/20/16 [History] HYDROcodone/Acet 10/325 mg [Hanna 10-325 mg] 1 tab PO Q6HR PRN 03/20/16 [History ] Warfarin Sodium 3 mg PO QPM 03/20/16 [History] Ergocalciferol (VITAMIN D2) [Vitamin D2 (50,000 UNIT)] 50,000 unit PO 2XW [History] Multivitamin [Multi-Day Vitamins] 1 tab PO DAILY 03/26/16 [History] Atorvastatin [Lipitor] 10 mg PO HS 30 Days 03/31/16 [Rx] Sotalol [Betapace] 80 mg PO Q12H 30 Days 03/31/16 [Rx] Levalbuterol Neb [Xopenex Neb] 1.25 mg IH Q4HR PRN 30 Days 05/31/16 [Rx] LORazepam [Ativan] 1 mg PO Q6H #28 tablet 08/08/16 [Rx] Diltiazem CD (24hr) [Cardizem CD] 180 mg PO BID 08/23/16 [History] Albuterol Sulfate [Albuterol Inhaler] 2 aerosol PO Q4HR PRN 08/28/16 [History] Reglan 5 mg PO TID 08/28/16 [History] Pantoprazole Sodium [Protonix] 40 mg PO QAM 10/02/16 [History] hydrOXYzine pamoate [HydrOXYzine Pamoate] 25 mg PO TID PRN 10/02/16 [History] Lactobacillus [Culturelle] 1 each PO BID #6 cap.sprink 10/05/16 [Rx] levoFLOXacin [Levaquin] 500 mg PO DAILY #3 tablet 10/05/16 [Rx] Allergies methyl salicylate Allergy (Verified 10/27/16 08:33) See Comments metronidazole [From Flagyl] Allergy (Verified 10/27/16 08:33) Hives orange juice [Ell[place] Juice] Allergy (Verified 10/27/16 08:33) Swelling of Lip/Tongue/Throat sertraline [From Zoloft] Allergy (Verified 10/27/16 08:33) Agitated vancomycin Allergy (Verified 10/27/16 08:33) Vomiting fidaxomicin [From Dificid] Adverse Reaction (Verified 10/27/16 08:33) Vomiting ketorolac [From Toradol] Adverse Reaction (Verified 10/27/16 08:33) Vomiting menthol Adverse Reaction (Verified 10/27/16 08:33) Difficulty Breathing meperidine [From Demerol] Adverse Reaction (Verified 10/27/16 08:33) Vomiting ropinirole [From Requip] Adverse Reaction (Verified 10/27/16 08:33) Vomiting simvastatin Adverse Reaction (Verified 10/27/16 08:33) Muscle Pain tramadol Adverse Reaction (Verified 10/27/16 08:33) Vomiting zolmitriptan Adverse Reaction (Verified 10/27/16 08:33) Agitated All Systems PM: A 10-system review of systems was performed and is negative for pertinent findings except as documented above in the HPI. Review of systems: Review of systems from her September 2016 [facility] hospitalization were reviewed and revised as below. Gen.: Her weight has increased from 68.039 kg on 06/18/2015 to present weight of 83.915 kg. Cardiovascular: She has hypertension. She has paroxysmal atrial fibrillation and was hospitalized for this at [facility] March 2016 and was initially placed on Rythmol but later changed to sotalol. She had DVT with pulmonary embolus July 2014 and had IVC filter placed at [facility]. She was initially placed on Coumadin but this was discontinued after approximately 3 months and she was placed on Xarelto. She developed nosebleeds and other complications so was restarted back on Coumadin after a few weeks. She had another pulmonary embolism February 2015 at [place] after bowel surgery.She had a limited echocardiogram done 03/21/2016 which showed normal LV size. The LVEF was 55%. There was mild diastolic dysfunction reported on an September 2015 echo but no significant valvular abnormality seen. Left atrial size was normal at 3.30 cm. She had a heart catheter 2008 and an exercise stress test June 2012 which were negative. Respiratory: She smoked from age [age] up to 3 packs per day. She had pulmonary function test done 09/15/2015 which showed very severe COPD. She follows with Dr. Jarvis at [facility]. She wears oxygen 24 at 2 L/m. She has had negative workup for sleep apnea in the past. She considered lung transplant at one time for COPD but decided against that. She is been hospitalized many times at [facility] the past few years with dyspnea. Her most recent chest CT was 04/15/2016 which showed no acute abnormalities. GI: She is status post cholecystectomy. She had polyps seen on a 2005 colonoscopy but has not had follow-up procedure done. She had an EGD approximately 2006. She denies other liver or exocrine pancreas disorders. She had segmental resection of colon secondary to diverticulitis with perforation February 2015 at [facility]. Her postop course was complicated with pulmonary embolism. She had development of a colostomy and has been told she will not have a takedown procedure because of her severe COPD. : She had hematuria in the past that resolved. She denies other kidney or bladder disorders. She has had tubal ligation. Endocrine: She has hyperlipidemia but no known diabetes or thyroid disease. She has been diagnosed with vitamin D deficiency but her last vitamin D level was 30 on 11/08/2015. Neurologic: No history of large distribution strokes or seizures. Hematology/oncology: She has had anemia and B12 and iron deficiency past. She has not had documented internal malignancies. Psychiatric: She has anxiety and depression but no other mental health issues Musk skeletal: She has DJD and osteoporosis but no known gout. - Constitutional Vitals: Temp Pulse Resp BP Pulse Ox 99.2 F 116 24 99/69 94 10/27/16 15:14 10/27/16 15:14 10/27/16 15:16 10/27/16 15:14 10/27/16 15:16 Exam: She is a well-developed well-nourished female lying in bed and appears in no severe distress. HEENT: Head is atraumatic and normocephalic. Eyes: EOMI. There is no scleral icterus. Mouth: Mucosa is moist. Neck: Supple and nontender. There is no thyromegaly or adenopathy noted. Heart: Regular without murmurs gallops or ectopics. Lungs: No wheezes or crackles are heard. Chest diminished breath sounds diffusely. Abdomen: Soft and nontender. Colostomy bag is in the left lower quadrant. There appears to be red drainage in the bag. Extremities: There is no cyanosis edema or clubbing noted. Dorsalis pedis and posttibial pulses are trace to 1+ palpable bilaterally. Neurologic: Mental status: She is lethargic and has difficulty staying awake to answer questions. Cranial nerves: Smile is symmetric. Forehead wrinkles bilaterally. Tongue protrudes midline. EOMI. Motor: There is no pronator drift. Cerebellar: Finger to nose is intact bilaterally. Skin: Warm and dry Internal Med - H&P Results - Labs CBC & Chem 7: 10/27/16 10:35 10/27/16 10:35 - ABG Interpretation ABG results: 10/27/16 11:24 ABG pH 7.43 ABG pCO2 49 H ABG pO2 78 L ABG HCO3 32.6 H ABG Total CO2 34.1 H ABG O2 Saturation 96 ABG Base Excess 8.3 H
[2016-10-27] MEDS: *HR* Warfarin 3 MG TABLET PO SCH (18:01)
[2016-10-27] MEDS: Budesonide/Formoterol 160/4.5 MDI IH SCH (20:08)
[2016-10-27] MEDS: Lactobacillus 1 EACH CAP.SPRINK PO SCH (20:20)
[2016-10-27] MEDS: Diltiazem CD (24hr) 180 MG CAPSULE PO SCH (20:21)
[2016-10-28] MEDS: Levalbuterol Neb 1.25 MG/3 ML IH PRN ×5 (01:04→20:19)
[2016-10-28] MEDS: Ondansetron ODT 4 MG TAB.RAPDIS SL PRN ×2 (04:10→19:24)
[2016-10-28] MEDS: *HR* LORazepam 1 MG TABLET PO SCH ×4 (04:10→17:42)
[2016-10-28] MEDS: (Roflumilast [Daliresp] 500 MCG) PO SCH (09:19)
[2016-10-28] MEDS: Multivit/Ca/Min/Fe/FA 1 TAB TABLET PO SCH (10:00)
[2016-10-28] MEDS: Diltiazem CD (24hr) 180 MG CAPSULE PO SCH ×2 (10:00→20:12)
[2016-10-28] MEDS: levoFLOXacin 500 MG TABLET PO SCH (10:01)
[2016-10-28] MEDS: Lactobacillus 1 EACH CAP.SPRINK PO SCH ×2 (10:01→20:12)
--- NOTE | 2016-10-28 10:53 | Internal Med Progress Note ---
Date of Encounter: 10/28/16 Time of Encounter: 10:45 - Assessment and plan (1) COPD (chronic obstructive pulmonary disease) Current Visit: No Status: Chronic Assessment and plan: October 28. She is on oral Levaquin since IV access was lost. Continue Symbicort, Singulair, and prn nebulizers. Qualifiers: COPD type: unspecified COPD Qualified Code(s): J44.9 - Chronic obstructive pulmonary disease, unspecified (2) History of DVT (deep vein thrombosis) Current Visit: No Status: Chronic Assessment and plan: October 28. Continue Coumadin (3) Anxiety Current Visit: No Status: Chronic Assessment and plan: October 28. Continue Ativan 1 mg every 6 hours. - Subjective Interval history: October 28. She has no new complaints. - Constitutional Vitals: Temp Pulse Resp BP Pulse Ox 98.4 F 98 26 109/73 95 10/28/16 07:04 10/28/16 07:04 10/28/16 07:04 10/28/16 07:04 10/28/16 07:04 Exam: She is resting comfortably in bed. She is more alert today. She is having a nebulizer treatment at present. I reviewed her medications and lab results. Internal Medicine: Result - Labs CBC & Chem 7: 10/27/16 10:35 10/27/16 10:35 - ABG Interpretation ABG results: ABG ABG pH 7.43 pH Units (7.32-7.45) 10/27/16 11:24 ABG pCO2 49 mmHg (35-45) H 10/27/16 11:24 ABG pO2 78 mmHg (85-104) L 10/27/16 11:24 ABG O2 Saturation 96 % (95-98) 10/27/16 11:24 PT/INR, D-dimer PT 14.7 Seconds (9.4-12.1) H 10/27/16 10:35 Consult Discharge Plan - Plan Referrals: Kit Stern MD [Primary Care Provider] - 1 week
[2016-10-28] MEDS: Budesonide/Formoterol 160/4.5 MDI IH SCH ×2 (10:55→20:19)
--- NOTE | 2016-10-28 12:43 | Electrocardiograph Report ---
[address] [address] Test Date: 2016-10-27 Pat Name: Meg Stern Department: [id number] Room: [facility] Gender: F [employer] [place]: [id number] : [id number] Requested By: Dwaine Mcnair Order Number: [id number] Reading MD: Clint Reeys Measurements Intervals [place] Rate: 121 P: -71 HI: 189 QRS: -80 QRSD: 88 T: 86 QT: 310 QTc: 382 Interpretive Statements SINUS TACHYCARDIA LOW QRS VOLTAGE IN PRECORDIAL LEADS POSSIBLE ANTERIOR MYOCARDIAL INFARCTION, PROBABLY OLD INFERIOR MYOCARDIAL INFARCTION, PROBABLY OLD Electronically Signed On 10-28-2016 12:42:04 EDT by Clint Reyes
[2016-10-28] MEDS: *HR* Warfarin 3 MG TABLET PO SCH (17:42)
[2016-10-28] MEDS: *HR* HYDROcodone/Acet 10/325 mg TABLET PO PRN (20:40)
[2016-10-29 04:26] LABS: Basophils % 0.2 %; Eosinophils # 0.6 K/mcL (0.0-0.6); Eosinophils % 4.2 %; Hematocrit 35.9 % (35.3-44.9); Hemoglobin 11.5 g/dL (11.5-15.4); Immature Granulocytes % 0.8 % (0-4); Lymphocytes # 2.1 K/mcL (0.6-4.6); Mean Corpuscular Hemoglobin 30.6 pg (28.0-33.3); Mean Corpuscular Volume 95.5 fL (83.0-100.0); Mean Platelet Volume 8.9 fL (9.4-12.4); Monocytes # 1.3 K/mcL (0.0-1.3); Platelet Count 278 K/mcL (140-400); Red Blood Count 3.76 M/mcL (3.82-4.97); Red Cell Distribution Width 14.1 % (11.5-14.5); Segmented Neutrophils % 70.8 %
[2016-10-29 04:28] LABS: Neutrophils # 10.1 K/mcL (1.6-8.9)
[2016-10-29 04:31] LABS: INR 2.3; Prothrombin Time 25.1 Seconds (9.4-12.1)
[2016-10-29] MEDS: Levalbuterol Neb 1.25 MG/3 ML IH PRN ×4 (04:39→19:08)
[2016-10-29 04:43] LABS: Alanine Aminotransferase 13 Units/L (0-55); Albumin 2.4 g/dL (3.5-5.0); Albumin/Globulin Ratio 0.8 (1.1-2.2); Alkaline Phosphatase 99 Units/L (38-126); Aspartate Amino Transferase 11 Units/L (5-34); BUN/Creatinine Ratio 21 (6-26); Bilirubin,Total 0.5 mg/dL (0.2-1.2); Blood Urea Nitrogen 16 mg/dL (7-20); Calcium 8.9 mg/dL (8.6-10.8); Carbon Dioxide 32 mEq/L (19-29); Chloride 98 mEq/L (98-109); Globulin 2.9 g/dL (2.4-3.5); Glucose 128 mg/dL (70-99); Osmolality,Calculated 295 (280-300); Sodium 141 mEq/L (136-145); Total Protein 5.3 g/dL (6.0-8.3); eGFR For African Americans > 60 (> 60); eGFR For Non-African Americans > 60 (> 60)
[2016-10-29] MEDS: *HR* LORazepam 1 MG TABLET PO SCH ×5 (04:57→21:32)
[2016-10-29] MEDS: Multivit/Ca/Min/Fe/FA 1 TAB TABLET PO SCH (08:21)
[2016-10-29] MEDS: levoFLOXacin 500 MG TABLET PO SCH (08:21)
[2016-10-29] MEDS: Lactobacillus 1 EACH CAP.SPRINK PO SCH ×2 (08:21→20:06)
[2016-10-29] MEDS: Diltiazem CD (24hr) 180 MG CAPSULE PO SCH ×2 (08:21→20:06)
[2016-10-29] MEDS: (Roflumilast [Daliresp] 500 MCG) PO SCH (08:22)
[2016-10-29] MEDS ORDERED: Cholecalciferol (D-3) 1,000 UNIT TABLET PO SCH (09:00)
[2016-10-29] MEDS: Budesonide/Formoterol 160/4.5 MDI IH SCH ×2 (09:38→19:08)
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
[2016-10-29] MEDS: Potassium Chloride Elixir 20 MEQ/15 ML UDC PO SCH ×2 (12:33→20:05)
[2016-10-29] MEDS: Cholecalciferol (D-3) 1,000 UNIT TABLET PO SCH (12:34)
[2016-10-29] MEDS: Ondansetron ODT 4 MG TAB.RAPDIS SL PRN ×2 (15:46→21:32)
[2016-10-29] MEDS: *HR* HYDROcodone/Acet 10/325 mg TABLET PO PRN (18:17)
[2016-10-29] MEDS: *HR* Warfarin 3 MG TABLET PO SCH (18:17)
[2016-10-30 04:07] LABS: Basophils % 0.4 %; Eosinophils # 0.8 K/mcL (0.0-0.6); Eosinophils % 7.5 %; Hematocrit 34.8 % (35.3-44.9); Hemoglobin 10.9 g/dL (11.5-15.4); Immature Granulocytes % 1.8 % (0-4); Lymphocytes # 2.3 K/mcL (0.6-4.6); Lymphocytes % 21.7 %; Mean Corpuscular HGB Conc 31.3 g/dL (31.6-35.5); Mean Corpuscular Hemoglobin 30.1 pg (28.0-33.3); Mean Corpuscular Volume 96.1 fL (83.0-100.0); Mean Platelet Volume 9.2 fL (9.4-12.4); Monocytes # 1.2 K/mcL (0.0-1.3); Monocytes % 11.6 %; Platelet Count 317 K/mcL (140-400); Red Blood Count 3.62 M/mcL (3.82-4.97)
[2016-10-30 04:24] LABS: BUN/Creatinine Ratio 19 (6-26); Blood Urea Nitrogen 15 mg/dL (7-20); Calcium 9.4 mg/dL (8.6-10.8); Carbon Dioxide 35 mEq/L (19-29); Chloride 99 mEq/L (98-109); Glucose 98 mg/dL (70-99); Magnesium 1.6 mg/dL (1.6-2.6); Osmolality,Calculated 293 (280-300); Potassium 3.8 mEq/L (3.5-4.5); Sodium 141 mEq/L (136-145); eGFR For African Americans > 60 (> 60); eGFR For Non-African Americans > 60 (> 60)
[2016-10-30] MEDS: Levalbuterol Neb 1.25 MG/3 ML IH PRN ×4 (06:30→20:10)
[2016-10-30] MEDS: Diltiazem CD (24hr) 180 MG CAPSULE PO SCH (08:04)
[2016-10-30] MEDS: (Roflumilast [Daliresp] 500 MCG) PO SCH (08:04)
[2016-10-30] MEDS: *HR* LORazepam 1 MG TABLET PO SCH ×3 (08:04→17:30)
[2016-10-30] MEDS: Multivit/Ca/Min/Fe/FA 1 TAB TABLET PO SCH (08:05)
[2016-10-30] MEDS: Potassium Chloride Elixir 20 MEQ/15 ML UDC PO SCH ×2 (08:05→20:45)
[2016-10-30] MEDS: levoFLOXacin 500 MG TABLET PO SCH (08:06)
[2016-10-30] MEDS: Lactobacillus 1 EACH CAP.SPRINK PO SCH ×2 (08:06→20:47)
[2016-10-30] MEDS: *HR* HYDROcodone/Acet 10/325 mg TABLET PO PRN ×3 (08:09→23:04)
[2016-10-30] MEDS: Budesonide/Formoterol 160/4.5 MDI IH SCH ×2 (09:21→20:10)
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
[2016-10-30] MEDS ORDERED: Diltiazem CD (24hr) 180 MG CAPSULE PO SCH (10:01)
[2016-10-30] MEDS: Cholecalciferol (D-3) 1,000 UNIT TABLET PO SCH (12:43)
[2016-10-30] MEDS: *HR* Warfarin 3 MG TABLET PO SCH (17:27)
[2016-10-30] MEDS: Ondansetron ODT 4 MG TAB.RAPDIS SL PRN (19:28)
[2016-10-30] MEDS ORDERED: *HR* LORazepam 0.5 MG TABLET PO ONE (20:22)
[2016-10-30] MEDS: Diltiazem CD (24hr) 120 MG CAPSULE PO SCH (20:47)
[2016-10-31] MEDS: *HR* LORazepam 1 MG TABLET PO SCH ×5 (00:24→19:41)
[2016-10-31] MEDS: Levalbuterol Neb 1.25 MG/3 ML IH PRN ×5 (06:38→22:15)
[2016-10-31] MEDS: Potassium Chloride Elixir 20 MEQ/15 ML UDC PO SCH ×2 (09:26→19:41)
[2016-10-31] MEDS: *HR* HYDROcodone/Acet 10/325 mg TABLET PO PRN ×2 (09:27→17:16)
[2016-10-31] MEDS: Cholecalciferol (D-3) 1,000 UNIT TABLET PO SCH (09:29)
[2016-10-31] MEDS: levoFLOXacin 500 MG TABLET PO SCH (09:29)
[2016-10-31] MEDS: Lactobacillus 1 EACH CAP.SPRINK PO SCH (09:29)
[2016-10-31] MEDS: (Roflumilast [Daliresp] 500 MCG) PO SCH (09:30)
[2016-10-31] MEDS: Diltiazem CD (24hr) 120 MG CAPSULE PO SCH ×2 (09:30→22:32)
[2016-10-31] MEDS: Multivit/Ca/Min/Fe/FA 1 TAB TABLET PO SCH (09:30)
[2016-10-31] MEDS: Ondansetron ODT 4 MG TAB.RAPDIS SL PRN ×2 (09:36→22:47)
[2016-10-31] MEDS: Budesonide/Formoterol 160/4.5 MDI IH SCH ×2 (10:01→22:23)
[2016-10-31] MEDS: *HR* Warfarin 3 MG TABLET PO SCH (17:15)
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
[2016-11-01] MEDS: *HR* LORazepam 1 MG TABLET PO SCH ×3 (00:36→11:39)
[2016-11-01] MEDS: Levalbuterol Neb 1.25 MG/3 ML IH PRN ×3 (04:23→11:06)
[2016-11-01 06:00] LABS: INR 3.3; Prothrombin Time 36.7 Seconds (9.4-12.1)
[2016-11-01 06:20] LABS: BUN/Creatinine Ratio 15 (6-26); Blood Urea Nitrogen 9 mg/dL (7-20); Calcium 9.5 mg/dL (8.6-10.8); Carbon Dioxide 33 mEq/L (19-29); Chloride 102 mEq/L (98-109); Glucose 88 mg/dL (70-99); Osmolality,Calculated 296 (280-300); Potassium 3.9 mEq/L (3.5-4.5); Sodium 144 mEq/L (136-145); eGFR For African Americans > 60 (> 60); eGFR For Non-African Americans > 60 (> 60)
[2016-11-01 07:09] LABS: Basophils # 0.1 K/mcL (0.0-0.2); Basophils % 0.8 %; Eosinophils # 0.7 K/mcL (0.0-0.6); Eosinophils % 7.6 %; Hematocrit 34.3 % (35.3-44.9); Hemoglobin 10.6 g/dL (11.5-15.4); Immature Granulocytes % 4.3 % (0-4); Lymphocytes % 21.3 %; Mean Corpuscular HGB Conc 30.9 g/dL (31.6-35.5); Mean Corpuscular Hemoglobin 30.1 pg (28.0-33.3); Mean Corpuscular Volume 97.4 fL (83.0-100.0); Mean Platelet Volume 9.1 fL (9.4-12.4); Monocytes # 1.1 K/mcL (0.0-1.3); Monocytes % 11.1 %; Neutrophils # 5.2 K/mcL (1.6-8.9); Platelet Count 393 K/mcL (140-400); Red Blood Count 3.52 M/mcL (3.82-4.97); Segmented Neutrophils % 54.9 %
[2016-11-01] MEDS: Budesonide/Formoterol 160/4.5 MDI IH SCH (07:27)
[2016-11-01] MEDS: Multivit/Ca/Min/Fe/FA 1 TAB TABLET PO SCH (08:57)
[2016-11-01] MEDS: Cholecalciferol (D-3) 1,000 UNIT TABLET PO SCH (08:58)
[2016-11-01] MEDS: Potassium Chloride Elixir 20 MEQ/15 ML UDC PO SCH (08:59)
[2016-11-01] MEDS: Diltiazem CD (24hr) 120 MG CAPSULE PO SCH (09:00)
[2016-11-01] MEDS: (Roflumilast [Daliresp] 500 MCG) PO SCH (09:00)
[2016-11-01] MEDS: Ondansetron ODT 4 MG TAB.RAPDIS SL PRN (09:05)
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
--- NOTE | 2016-11-01 09:45 | Physician Discharge Referral ---
ExtendedCare Referral Info Transfer To: [facility] Provider in Charge: Gildardo Provider in Charge after Transfer: PCP Vero) Institutional Level of Care: Skilled - Diagnosis (1) COPD (chronic obstructive pulmonary disease) Priority: Primary Status: Chronic (2) History of DVT (deep vein thrombosis) Priority: Secondary Status: Chronic (3) Anxiety Priority: Secondary Status: Chronic (4) Weakness Priority: Secondary Status: Acute (5) Hypokalemia Priority: Secondary Status: Resolved Prognosis: Fair Aware of Diagnosis: Patient, Family Aware of Prognosis: Patient, Family - Transfer Medications Prescriptions: HYDROcodone/Acet 10/325 mg [English 10-325 mg] 1 tab PO Q6HR PRN #240 tablet PRN Reason: Pain LORazepam [Ativan] 1 mg PO Q6H #120 tablet Home Medications: Melatonin 3 mg PO HS PRN 01/23/15 [History] Montelukast [Singulair] 10 mg PO DAILY #30 tablet 02/14/15 [Rx] Roflumilast [Daliresp] 500 mcg PO DAILY 09/17/15 [History] Ondansetron ODT [Zofran ODT] 4 mg SL Q6HR PRN #8 tab.rapdis 01/30/16 [Rx] Budesonide/Formoterol 160/4.5 [Symbicort 160/4.5] 2 puff IH BID 03/20/16 [ History] Warfarin Sodium 3 mg PO QPM 03/20/16 [History] Ergocalciferol (VITAMIN D2) [Vitamin D2 (50,000 UNIT)] 50,000 unit PO 2XW [History] Multivitamin [Multi-Day Vitamins] 1 tab PO DAILY 03/26/16 [History] Atorvastatin [Lipitor] 10 mg PO HS 30 Days 03/31/16 [Rx] Sotalol [Betapace] 80 mg PO Q12H 30 Days 03/31/16 [Rx] Levalbuterol Neb [Xopenex Neb] 1.25 mg IH Q4HR PRN 30 Days 05/31/16 [Rx] Albuterol Sulfate [Albuterol Inhaler] 2 aerosol PO Q4HR PRN 08/28/16 [History] Reglan 5 mg PO TID 08/28/16 [History] Pantoprazole Sodium [Protonix] 40 mg PO QAM 10/02/16 [History] hydrOXYzine pamoate [HydrOXYzine Pamoate] 25 mg PO TID PRN 10/02/16 [History] Cyclobenzaprine [Flexeril] 5 mg PO TID PRN #0 11/01/16 [Rx] Diltiazem CD (24hr) [Cardizem CD] 120 mg PO BID cap.er.24h 11/01/16 [Rx] HYDROcodone/Acet 10/325 mg [English 10-325 mg] 1 tab PO Q6HR PRN #240 tablet 11/01 [Rx] LORazepam [Ativan] 1 mg PO Q6H #120 tablet 11/01/16 [Rx] Ondansetron ODT [Zofran ODT] 4 mg SL Q6HR PRN #0 tab.rapdis 11/01/16 [Rx] Potassium Chloride Elixir [Potassium Chloride] 10 meq PO BID udc 11/01/16 [Rx] Allergies/Adverse Reactions: Allergies methyl salicylate Allergy (Verified 10/27/16 08:33) See Comments metronidazole [From Flagyl] Allergy (Verified 10/27/16 08:33) Hives orange juice [Yates Juice] Allergy (Verified 10/27/16 08:33) Swelling of Lip/Tongue/Throat sertraline [From Zoloft] Allergy (Verified 10/27/16 08:33) Agitated vancomycin Allergy (Verified 10/27/16 08:33) Vomiting fidaxomicin [From Dificid] Adverse Reaction (Verified 10/27/16 08:33) Vomiting ketorolac [From Toradol] Adverse Reaction (Verified 10/27/16 08:33) Vomiting menthol Adverse Reaction (Verified 10/27/16 08:33) Difficulty Breathing meperidine [From Demerol] Adverse Reaction (Verified 10/27/16 08:33) Vomiting ropinirole [From Requip] Adverse Reaction (Verified 10/27/16 08:33) Vomiting simvastatin Adverse Reaction (Verified 10/27/16 08:33) Muscle Pain tramadol Adverse Reaction (Verified 10/27/16 08:33) Vomiting zolmitriptan Adverse Reaction (Verified 10/27/16 08:33) Agitated - Respiratory Orders Oxygen / L per min (2 L/m by nasal cannula 07/01) Smoking Cessation: Smoking cessation has been advised. For more information, call the [place] Tobacco Quit Line at 7-121-UEWZ-NOW. - Advance Directives Code Status: Full Code - Mobility Orders Ambulate - Rehabiliation Orders Rehab Potential: Fair Rehab Orders: Evaluation for Physical Therapy, Evaluation for Occupational Therapy - Diet Orders Regular CERTIFICATION: I certify that the transfer of the above named patient to an Extended Care Facility is necessary for the continuing treatment of the diagnosis listed. The above information is true and accurate reflection of patient's current condition. Confidential - Redisclosure prohibited without a patient's written consent.
[2016-11-01 11:05] VITALS: BP 106/67
== END 2016-11-01 11:49 ==
LOC: INPPIK 08:32 → EMEROOPIK 08:32 → INPPIK 11:19
PROVIDERS: ADMIT Internal Medicine; ATTEND Internal Medicine

== ENCOUNTER 2017-09-23 14:42 | Observation (INO) ==
--- NOTE | 2017-09-23 14:53 | Emergency Department Note ---
Disposition Clinical Impression: Anemia, Dyspnea Disposition: Admitted As Inpatient Condition: Good Reasons to Return/Additional Instructions: Your blood pressure was elevated today so please follow-up with primary care provider upon discharge hospital Referrals: Kit Stern MD [Primary Care Provider] - Forms: ED Satisfaction Letter Time of Disposition: 17:07 SOB HPI - General Chief Complaint: ED Shortness of Breath/Dyspnea Stated Complaint: shortness of breath Time Seen by Provider: 09/23/17 14:42 Source: patient Mode of arrival: EMS Limitations: no limitations Nursing Notes Reviewed: Yes Vital Signs Reviewed: Yes - History of Present Illness Patient complains of shortness of breath. Is a little bit of cough. No chest pain belly pain diarrhea rashes urinary symptoms or other complaints or admitted to. She is not coughing anything up that she admits to. Pt Subjective Complaint: shortness of breath Onset (ago): day(s) (several) Severity: moderate Consistency/Duration: constant Improves with: nothing Worsens with: nothing Associated symptoms: Reports: cough. Denies: chest pain, pain with inspiration , wheezing, sputum production, orthopnea, lower extremity pain, palpitations, diaphoresis, nausea/vomiting, syncope, abdominal pain - Related Data Home Medications Medication Instructions Recorded Confirmed Melatonin 3 mg PO HS PRN 01/23/15 10/27/16 Roflumilast [Daliresp] 500 mcg PO DAILY 09/17/15 10/27/16 Budesonide/Formoterol 160/4.5 2 puff IH BID 03/20/16 10/27/16 [Symbicort 160/4.5] Warfarin Sodium 3 mg PO QPM 03/20/16 10/27/16 Multivitamin [Multi-Day Vitamins] 1 tab PO DAILY 03/26/16 10/27/16 Albuterol Sulfate [Albuterol 2 aerosol PO Q4HR PRN 08/28/16 10/27/16 Inhaler] Reglan 5 mg PO TID 08/28/16 10/27/16 Pantoprazole Sodium [Protonix] 40 mg PO QAM 10/02/16 10/27/16 Previous Rx's Medication Instructions Recorded Montelukast [Singulair] 10 mg PO DAILY #30 tablet 02/14/15 Atorvastatin [Lipitor] 10 mg PO HS 30 Days tablet 03/31/16 Sotalol [Betapace] 80 mg PO Q12H 30 Days tablet 03/31/16 Cyclobenzaprine [Flexeril] 5 mg PO TID PRN #0 11/01/16 Diltiazem CD (24hr) [Cardizem CD] 120 mg PO BID cap.er.24h 11/01/16 HYDROcodone/Acet 10/325 mg [[place] 1 tab PO Q6HR PRN #240 tablet 11/01/16 10-325 mg] LORazepam [Ativan] 1 mg PO Q6H #120 tablet 11/01/16 Ondansetron ODT [Zofran ODT] 4 mg SL Q6HR PRN #0 tab.rapdis 11/01/16 Allergies Allergy/AdvReac Type Severity Reaction Status Date / Time methyl salicylate Allergy See Verified 10/27/16 08:33 Comments metronidazole [From Flagyl] Allergy Hives Verified 10/27/16 08:33 orange juice [[place] Juice] Allergy Swelling Verified 10/27/16 08:33 of Lip/Tongue/Throat sertraline [From Zoloft] Allergy Agitated Verified 10/27/16 08:33 vancomycin Allergy Vomiting Verified 10/27/16 08:33 fidaxomicin [From Dificid] AdvReac Vomiting Verified 10/27/16 08:33 ketorolac [From Toradol] AdvReac Vomiting Verified 10/27/16 08:33 menthol AdvReac Difficulty Verified 10/27/16 08:33 Breathing meperidine [From Demerol] AdvReac Vomiting Verified 10/27/16 08:33 ropinirole [From Requip] AdvReac Vomiting Verified 10/27/16 08:33 simvastatin AdvReac Muscle Pain Verified 10/27/16 08:33 tramadol AdvReac Vomiting Verified 10/27/16 08:33 zolmitriptan AdvReac Agitated Verified 10/27/16 08:33 All systems ED: reviewed and negative except as stated. Review of Systems: As Per HPI Constitutional: Reports: as per HPI, fever (possibly a fever.) Eyes: Denies: eye pain, eye discharge, vision change ENT ED: Denies: ear pain, throat pain, dental pain, hearing loss, epistaxis, congestion, dysphagia Cardiovascular: Denies: chest pain, palpitations, dyspnea on exertion, edema, syncope Respiratory: Reports: as per HPI, cough, other (shortness of breath) Gastrointestinal: Denies: abdominal pain, nausea, vomiting, diarrhea, constipation, hematemesis, melena, hematochezia Genitourinary: Denies: dysuria, frequency, hematuria, discharge Musculoskeletal: Denies: back pain, neck pain, arthralgia, myalgia Integumentary: Denies: rash, abrasion, lesions Past Medical History - Past Medical History Medical history: Reports: asthma, atrial fibrillation, COPD, DVT, GERD, hyperlipidemia, hypertension, renal disease, SVT, thyroid disease Surgical history: Reports: cataract, cholecystectomy, colostomy, herniorrhaphy, IVC filter Psychiatric history: Reports: anxiety, depression, panic disorder PROGRAM ADVOCATE history: Reports: no PROGRAM ADVOCATE history - Social History Smoking Status: Former smoker Smokeless Tobacco Status: No Alcohol use: Reports: none Drug use: Reports: none Course Vital Signs Temperature 99.2 F 09/23/17 14:44 Pulse Rate 89 09/23/17 14:44 Respiratory Rate 17 09/23/17 14:44 Blood Pressure 149/70 09/23/17 14:44 O2 Sat by Pulse Oximetry 98 09/23/17 14:44 Temperature 99.2 F 09/23/17 14:44 Pulse Rate 89 09/23/17 14:44 Respiratory Rate 17 09/23/17 14:44 Blood Pressure 149/70 09/23/17 14:44 O2 Sat by Pulse Oximetry 98 09/23/17 14:44 Oxygen Delivery Oxygen Delivery Nasal Cannula Shortness of Breath/Dyspnea - Lab Data Result diagrams: 09/23/17 15:15 09/23/17 15:15 Lab Results 09/23/17 09/23/17 09/23/17 Range/Units 15:15 15:15 15:15 WBC 9.2 (4.3-11.1) K/mcL RBC 3.20 L (3.82-4.97) M/mcL Hgb 6.1 L (11.5-15.4) g/dL Hct 23.8 L (35.3-44.9) % MCV 74.4 L (83.0-100.0) fL MCH 19.1 L (28.0-33.3) pg MCHC 25.6 L (31.6-35.5) g/dL RDW 18.8 H (11.5-14.5) % Plt Count 363 (140-400) K/mcL MPV 9.2 L (9.4-12.4) fL Immature Gran % 1.1 (0-4) % Seg Neutrophils % 78.3 % Lymphocytes % 14.0 % Monocytes % 6.2 % Eosinophils % 0.3 % Basophils % 0.1 % Neutrophils # 7.2 (1.6-8.9) K/mcL Lymphocytes # 1.3 (0.6-4.6) K/mcL Monocytes # 0.6 (0.0-1.3) K/mcL Eosinophils # 0.0 (0.0-0.6) K/mcL Basophils # 0.0 (0.0-0.2) K/mcL Nucleated RBCs/100 WBC 1.3 H (0) /100 WBC Platelet Estimate Normal (Normal) Polychromasia 1+ A (Not Present) Hypochromasia Present A (Not Present) Basophilic Stippling 1+ A (Not Present) Anisocytosis 1+ A (Not Present) PT (9.4-12.1) Seconds INR APTT (26.0-36.0) Seconds Sodium 137 (136-145) mEq/L Potassium 3.5 (3.5-5.1) mEq/L Chloride 95 L (98-107) mEq/L Carbon Dioxide 35 H (23-29) mEq/L BUN 12 (8-23) mg/dL Creatinine 0.72 (0.60-1.20) mg/dL Est GFR ( Amer) > 60 (> 60) Est GFR (Non-Af Amer) > 60 (> 60) BUN/Creatinine Ratio 17 (6-26) Glucose 122 H (70-105) mg/dL Calculated Osmolality 285 (280-300) Calcium 8.9 (8.6-10.3) mg/dL Troponin I < 0.03 (< 0.04) ng/mL Blood Type A POSITIVE Antibody Screen NEGATIVE Crossmatch See Detail 09/23/17 Range/Units 15:15 WBC (4.3-11.1) K/mcL RBC (3.82-4.97) M/mcL Hgb (11.5-15.4) g/dL Hct (35.3-44.9) % MCV (83.0-100.0) fL MCH (28.0-33.3) pg MCHC (31.6-35.5) g/dL RDW (11.5-14.5) % Plt Count (140-400) K/mcL MPV (9.4-12.4) fL Immature Gran % (0-4) % Seg Neutrophils % % Lymphocytes % % Monocytes % % Eosinophils % % Basophils % % Neutrophils # (1.6-8.9) K/mcL Lymphocytes # (0.6-4.6) K/mcL Monocytes # (0.0-1.3) K/mcL Eosinophils # (0.0-0.6) K/mcL Basophils # (0.0-0.2) K/mcL Nucleated RBCs/100 WBC (0) /100 WBC Platelet Estimate (Normal) Polychromasia (Not Present) Hypochromasia (Not Present) Basophilic Stippling (Not Present) Anisocytosis (Not Present) PT 14.0 H (9.4-12.1) Seconds INR 1.3 APTT 24.6 L (26.0-36.0) Seconds Sodium (136-145) mEq/L Potassium (3.5-5.1) mEq/L Chloride (98-107) mEq/L Carbon Dioxide (23-29) mEq/L BUN (8-23) mg/dL Creatinine (0.60-1.20) mg/dL Est GFR ( Amer) (> 60) Est GFR (Non-Af Amer) (> 60) BUN/Creatinine Ratio (6-26) Glucose (70-105) mg/dL Calculated Osmolality (280-300) Calcium (8.6-10.3) mg/dL Troponin I (< 0.04) ng/mL Blood Type Antibody Screen Crossmatch
[2017-09-23 15:25] LABS: Basophils % 0.1 %; Eosinophils % 0.3 %; Hematocrit 23.8 % (35.3-44.9); Hemoglobin 6.1 g/dL (11.5-15.4); Immature Granulocytes % 1.1 % (0-4); Lymphocytes # 1.3 K/mcL (0.6-4.6); Mean Corpuscular HGB Conc 25.6 g/dL (31.6-35.5); Mean Corpuscular Hemoglobin 19.1 pg (28.0-33.3); Mean Corpuscular Volume 74.4 fL (83.0-100.0); Mean Platelet Volume 9.2 fL (9.4-12.4); Monocytes # 0.6 K/mcL (0.0-1.3); Monocytes % 6.2 %; Neutrophils # 7.2 K/mcL (1.6-8.9); Nucleated Red Blood Cells 1.3 /100 WBC (0); Platelet Count 363 K/mcL (140-400); Red Cell Distribution Width 18.8 % (11.5-14.5); Segmented Neutrophils % 78.3 %
[2017-09-23 15:43] LABS: BUN/Creatinine Ratio 17 (6-26); Blood Urea Nitrogen 12 mg/dL (8-23); Calcium 8.9 mg/dL (8.6-10.3); Carbon Dioxide 35 mEq/L (23-29); Chloride 95 mEq/L (98-107); Glucose 122 mg/dL (70-105); Osmolality,Calculated 285 (280-300); Potassium 3.5 mEq/L (3.5-5.1); Sodium 137 mEq/L (136-145); eGFR For African Americans > 60 (> 60); eGFR For Non-African Americans > 60 (> 60)
[2017-09-23 15:44] LABS: Troponin I < 0.03 ng/mL (< 0.04)
[2017-09-23 16:24] LABS: INR 1.3
[2017-09-23 16:26] LABS: Activated Partial Thrombo Time 24.6 Seconds (26.0-36.0)
[2017-09-23 16:36] LABS: Anisocytosis 1+ (Not Present)
[2017-09-23 16:37] LABS: Basophilic Stippling 1+ (Not Present); Hypochromasia Present (Not Present); Platelet Estimate Normal (Normal); Polychromasia 1+ (Not Present)
[2017-09-23] MEDS ORDERED: methylPREDNISolone 125 MG/2 ML VIAL IVP ONE (17:18)
[2017-09-23] MEDS ORDERED: 0.9 % Sodium Chloride 250 ML ONE (17:18)
[2017-09-23] MEDS ORDERED: cefTRIAXone 1,000 MG in Water for inj. (sterile) 20 ML 10 ML IVP ONE (18:42)
[2017-09-23] MEDS ORDERED: Ondansetron ODT 4 MG TAB.RAPDIS SL PRN ×2 (18:42)
[2017-09-23] MEDS ORDERED: 0.9 % Sodium Chloride 1,000 ML IVC SCH (18:42)
[2017-09-23] MEDS ORDERED: Naloxone 0.4 MG/ML INJ IVP PRN (18:42)
[2017-09-23] MEDS ORDERED: Acetaminophen 325 MG TABLET PO PRN (18:43)
[2017-09-23] MEDS: *HR* HYDROcodone/Acet 10/325 mg TABLET PO PRN (20:13)
[2017-09-23] MEDS: Diltiazem CD (24hr) 120 MG CAPSULE PO SCH (20:15)
[2017-09-23] MEDS: *HR* LORazepam 1 MG TABLET PO SCH (20:15)
[2017-09-23] MEDS: *HR* Warfarin 3 MG TABLET PO SCH (20:24)
[2017-09-23] MEDS: Potassium Chloride Elixir 20 MEQ/15 ML UDC PO SCH (20:24)
[2017-09-23] MEDS: Cholecalciferol (D-3) 1,000 UNIT TABLET PO SCH (20:24)
[2017-09-23] MEDS: Ipratropium/Albuterol Neb 3 ML IH SCH (20:24)
[2017-09-23] MEDS: Budesonide/Formoterol 160/4.5 MDI IH SCH (21:07)
[2017-09-24] MEDS ORDERED: 0.9 % Sodium Chloride 250 ML ONE (00:19)
[2017-09-24] MEDS: Ipratropium/Albuterol Neb 3 ML IH SCH ×3 (00:37→08:30)
[2017-09-24] MEDS: Melatonin 3 MG TABLET PO PRN (00:45)
[2017-09-24] MEDS: hydrOXYzine pamoate 25 MG CAPSULE PO PRN (00:45)
[2017-09-24] MEDS: *HR* HYDROcodone/Acet 10/325 mg TABLET PO PRN ×2 (02:55→21:04)
[2017-09-24] MEDS: *HR* LORazepam 1 MG TABLET PO SCH ×4 (06:06→18:50)
[2017-09-24 06:45] LABS: Basophils % 0.2 %; Hematocrit 33.2 % (35.3-44.9); Hemoglobin 9.6 g/dL (11.5-15.4); Immature Granulocytes % 0.9 % (0-4); Lymphocytes # 0.9 K/mcL (0.6-4.6); Lymphocytes % 20.5 %; Mean Corpuscular HGB Conc 28.9 g/dL (31.6-35.5); Mean Corpuscular Hemoglobin 22.5 pg (28.0-33.3); Mean Corpuscular Volume 77.8 fL (83.0-100.0); Mean Platelet Volume 9.3 fL (9.4-12.4); Monocytes # 0.1 K/mcL (0.0-1.3); Neutrophils # 3.3 K/mcL (1.6-8.9); Nucleated Red Blood Cells 1.4 /100 WBC (0); Platelet Count 341 K/mcL (140-400); Red Blood Count 4.27 M/mcL (3.82-4.97); Red Cell Distribution Width 19.3 % (11.5-14.5); Segmented Neutrophils % 75.4 %
[2017-09-24 07:25] LABS: BUN/Creatinine Ratio 18 (6-26); Blood Urea Nitrogen 12 mg/dL (8-23); Calcium 9.3 mg/dL (8.6-10.3); Carbon Dioxide 31 mEq/L (23-29); Chloride 100 mEq/L (98-107); Glucose 120 mg/dL (70-105); Osmolality,Calculated 291 (280-300); Potassium 3.6 mEq/L (3.5-5.1); Sodium 140 mEq/L (136-145); eGFR For African Americans > 60 (> 60); eGFR For Non-African Americans > 60 (> 60)
[2017-09-24 07:53] LABS: Hypochromasia Present (Not Present); Microcytosis Present (Not Present)
[2017-09-24] MEDS: Cholecalciferol (D-3) 1,000 UNIT TABLET PO SCH (09:21)
[2017-09-24] MEDS: Diltiazem CD (24hr) 120 MG CAPSULE PO SCH ×2 (09:21→21:00)
[2017-09-24] MEDS: Potassium Chloride Elixir 20 MEQ/15 ML UDC PO SCH ×2 (09:22→21:00)
[2017-09-24] MEDS: (Roflumilast [Daliresp] 500 MCG) PO SCH (09:22)
[2017-09-24] MEDS ORDERED: Levalbuterol Neb 1.25 MG/3 ML ONE (10:20)
[2017-09-24] MEDS: Levalbuterol Neb 1.25 MG/3 ML IH PRN ×4 (10:23→21:30)
--- NOTE | 2017-09-24 11:08 | Internal Med History&Physical ---
Date of Encounter: 09/24/17 Time of Encounter: 10:40 Assessment and Plan (1) Acute exacerbation of chronic obstructive airways disease Current visit: No Status: Acute She has been started on Rocephin. Will and Zithromax and lactobacillus. Continue home pulmonary regimen otherwise. (2) Anemia Current visit: Yes Status: Acute Colostomy stool guaiac was heme positive. She has been transfused 2 units packed red blood cells. Will order anemia testing since I suspect she has iron deficiency and will need iron supplementation. Qualifiers: Anemia type: unspecified type Qualified Code(s): D64.9 - Anemia, unspecified (3) History of DVT (deep vein thrombosis) Current visit: No Status: Chronic Continue Coumadin (4) Weakness Current visit: No Status: Acute Will order PT and OT evaluation. (5) Anxiety Current visit: No Status: Chronic Continue scheduled lorazepam Internal Medicine - H&P: HPI Chief complaint: Dyspnea Admitted From: Emergency Dept Plans for Post Hospital Care: Home History of present illness: Ms. Stern is a 62 year old female who came to emergency room complaining of dyspnea onset 1 week earlier. She reports a cough productive of yellow sputum. She was evaluated in emergency room and felt to have exacerbation of COPD. She was also found to have significant anemia. She was admitted to [facility] floor for ongoing care needs. She smoked from age [age] up to 3 packs per day. She had pulmonary function test done 09/15/2015 which showed very severe COPD. She follows with Dr. Jarvis at [facility]. She wears oxygen 24/7 at 2 L/m. She has had negative workup for sleep apnea in the past. She considered lung transplant at one time for COPD but decided against that. She is been hospitalized many times at [facility] the past few years with dyspnea. Her most recent chest CT was 04/15/2016 which showed no acute abnormalities. She denies visible blood from her colostomy bag. She denies use of OTC NSAIDs. She is on Coumadin because of history of recurrent DVT with pulmonary emboli. Past Med Surg Social Fam HX - Past Medical History Medical history: asthma, atrial fibrillation, COPD, DVT, GERD, hyperlipidemia, hypertension, renal disease, SVT, thyroid disease Psychiatric history: anxiety, depression, panic disorder - Past Surgical History Surgical History: cataract, cholecystectomy, colostomy, herniorrhaphy, IVC filter - Social History Smoking Status: Former smoker Smokeless Tobacco Status: No Alcohol use: none Drug use: none - Family History Father Family Member Ethnicity: Non- Living Status: Hx Family Cardiac Disorders: Yes ( of [place] at 58) Internal Medicine - H&P: Meds Melatonin 3 mg PO HS PRN 01/23/15 [History] Montelukast [Singulair] 10 mg PO DAILY #30 tablet 02/14/15 [Rx] Roflumilast [Daliresp] 500 mcg PO DAILY 09/17/15 [History] Budesonide/Formoterol 160/4.5 [Symbicort 160/4.5] 2 puff IH BID 03/20/16 [ History] Warfarin Sodium 3 mg PO QPM 03/20/16 [History] Multivitamin [Multi-Day Vitamins] 1 tab PO DAILY 03/26/16 [History] Atorvastatin [Lipitor] 10 mg PO HS 30 Days tablet 03/31/16 [Rx] Sotalol [Betapace] 80 mg PO Q12H 30 Days tablet 03/31/16 [Rx] Albuterol Sulfate [Albuterol Inhaler] 2 aerosol PO Q4HR PRN 08/28/16 [History] Reglan 5 mg PO TID 08/28/16 [History] Pantoprazole Sodium [Protonix] 40 mg PO QAM 10/02/16 [History] Cyclobenzaprine [Flexeril] 5 mg PO TID PRN #0 11/01/16 [Rx] Diltiazem CD (24hr) [Cardizem CD] 120 mg PO BID cap.er.24h 11/01/16 [Rx] HYDROcodone/Acet 10/325 mg [[place] 10-325 mg] 1 tab PO Q6HR PRN #240 tablet 11/01 [Rx] LORazepam [Ativan] 1 mg PO Q6H #120 tablet 11/01/16 [Rx] Ondansetron ODT [Zofran ODT] 4 mg SL Q6HR PRN #0 tab.rapdis 11/01/16 [Rx] 3 Allergy/AdvReac Type Severity Reaction Status Date / Time methyl salicylate Allergy See Verified 10/27/16 08:33 Comments metronidazole [From Flagyl] Allergy Hives Verified 10/27/16 08:33 orange juice [[place] Juice] Allergy Swelling Verified 10/27/16 08:33 of Lip/Tongue/Throat sertraline [From Zoloft] Allergy Agitated Verified 10/27/16 08:33 vancomycin Allergy Vomiting Verified 10/27/16 08:33 fidaxomicin [From Dificid] AdvReac Vomiting Verified 10/27/16 08:33 ketorolac [From Toradol] AdvReac Vomiting Verified 10/27/16 08:33 menthol AdvReac Difficulty Verified 10/27/16 08:33 Breathing meperidine [From Demerol] AdvReac Vomiting Verified 10/27/16 08:33 ropinirole [From Requip] AdvReac Vomiting Verified 10/27/16 08:33 simvastatin AdvReac Muscle Pain Verified 10/27/16 08:33 tramadol AdvReac Vomiting Verified 10/27/16 08:33 zolmitriptan AdvReac Agitated Verified 10/27/16 08:33 All Systems PM: A 10-system review of systems was performed and is negative for pertinent findings except as documented above in the HPI. Review of systems: Review of systems from her October 2016 [facility] hospitalization were reviewed and revised as below. Gen.: Her weight has increased from 68.039 kg on 06/18/2015 to present weight of 81.647 kg. Cardiovascular: She has hypertension. She has paroxysmal atrial fibrillation and was hospitalized for this at [facility] March 2016 and was initially placed on Rythmol but later changed to sotalol. She had DVT with pulmonary embolus July 2014 and had IVC filter placed at [facility]. She was initially placed on Coumadin but this was discontinued after approximately 3 months and she was placed on Xarelto. She developed nosebleeds and other complications so was restarted back on Coumadin after a few weeks. She had another pulmonary embolism February 2015 at [facility] after bowel surgery.She had a limited echocardiogram done 03/21/2016 which showed normal LV size. The LVEF was 55%. There was mild diastolic dysfunction reported on an September 2015 echo but no significant valvular abnormality seen. Left atrial size was normal at 3.30 cm. She had a heart catheter 2008 and an exercise stress test June 2012 which were negative. Respiratory: As per history of present illness GI: She is status post cholecystectomy. She had polyps seen on a 2005 colonoscopy but has not had follow-up procedure done. She had an EGD approximately 2006. She denies other liver or exocrine pancreas disorders. She had segmental resection of colon secondary to diverticulitis with perforation February 2015 at [facility]. Her postop course was complicated with pulmonary embolism. She had development of a colostomy and has been told she will not have a takedown procedure because of her severe COPD. : She had hematuria in the past that resolved. She denies other kidney or bladder disorders. She has had tubal ligation. Endocrine: She has hyperlipidemia but no known diabetes or thyroid disease. She has been diagnosed with vitamin D deficiency but her last vitamin D level was 27 on 11/05/2016. Neurologic: No history of large distribution strokes or seizures. Hematology/oncology: She has had anemia and B12 and iron deficiency past. She has not had documented internal malignancies. Psychiatric: She has anxiety and depression but no other mental health issues Musk skeletal: She has DJD and osteoporosis but no known gout. - Constitutional Vitals: Temp Pulse Resp BP Pulse Ox 98.5 F 82 18 134/102 97 09/24/17 10:15 09/24/17 10:15 09/24/17 10:24 09/24/17 10:15 09/24/17 10:24 Exam: Gen.: She is a well developed well-nourished female lying in bed who appears slightly dyspneic. HEENT: Head is atraumatic and normal cephalic. Eyes: EOMI. There is no scleral icterus. Mouth: Mucosa is moist. Neck: Supple and nontender. There is no thyromegaly or adenopathy noted. Heart: Regular without murmurs gallops or ectopics Lungs: No wheezes or crackles are heard. Abdomen: Soft and nontender. No masses or guarding are noted. Is well-healed lower midline abdominal scar. There is a colostomy bag in the left lower quadrant with greenish brown fecal material seen. No visible blood is noted. Extremities: There is no cyanosis edema or clubbing noted. Dorsalis pedis and posttibial pulses are trace to 1+ palpable bilaterally. Neurologic: Mental status: She is talkative and a good historian. Cranial nerves: Smile is symmetric. Forehead wrinkles bilaterally. Tongue protrudes midline. EOMI. Motor: There is no pronator drift. Cerebellar: Finger to nose is intact bilaterally. Skin: Warm and dry Internal Med - H&P Results - Labs CBC & Chem 7: 09/24/17 06:30 09/24/17 06:30 Labs: Short CBC 09/24/17 Range/Units 06:30 WBC 4.4 D (4.3-11.1) K/mcL Hgb 9.6 L D (11.5-15.4) g/dL Hct 33.2 L (35.3-44.9) % Plt Count 341 (140-400) K/mcL Neutrophils # 3.3 (1.6-8.9) K/mcL BMP 09/24/17 06:30 Sodium 140 Potassium 3.6 Chloride 100 Carbon Dioxide 31 H BUN 12 Creatinine 0.65 Glucose 120 H Calcium 9.3
[2017-09-24] MEDS: Budesonide/Formoterol 160/4.5 MDI IH SCH ×2 (13:18→21:30)
[2017-09-24 16:59] LABS: Ferritin 20 ng/ml (10-120); Iron < 10 mcg/dL (50-170); Transferrin 377 mg/dL (203-362)
[2017-09-24] MEDS: *HR* Warfarin 3 MG TABLET PO SCH (18:49)
[2017-09-24] MEDS: Cortisporin *EAR*Susp 10 ML BOTTLE LEFT EAR SCH (20:59)
[2017-09-25] MEDS: *HR* LORazepam 1 MG TABLET PO SCH ×5 (00:02→23:42)
[2017-09-25] MEDS: Levalbuterol Neb 1.25 MG/3 ML IH PRN ×7 (05:54→23:46)
[2017-09-25 06:06] LABS: Basophils % 0.1 %; Eosinophils % 0.1 %; Hematocrit 34.8 % (35.3-44.9); Hemoglobin 9.9 g/dL (11.5-15.4); Immature Granulocytes % 0.6 % (0-4); Lymphocytes # 1.5 K/mcL (0.6-4.6); Lymphocytes % 17.8 %; Mean Corpuscular HGB Conc 28.4 g/dL (31.6-35.5); Mean Corpuscular Hemoglobin 22.7 pg (28.0-33.3); Mean Corpuscular Volume 79.6 fL (83.0-100.0); Mean Platelet Volume 9.1 fL (9.4-12.4); Monocytes # 0.9 K/mcL (0.0-1.3); Monocytes % 10.5 %; Nucleated Red Blood Cells 0.7 /100 WBC (0); Platelet Count 347 K/mcL (140-400); Red Blood Count 4.37 M/mcL (3.82-4.97); Red Cell Distribution Width 20.1 % (11.5-14.5); Segmented Neutrophils % 70.9 %
[2017-09-25 07:09] LABS: INR 1.8; Prothrombin Time 19.5 Seconds (9.4-12.1)
[2017-09-25 07:20] LABS: Hypochromasia Present (Not Present); Stomatocytes 1+ (Not Present)
[2017-09-25 07:21] LABS: Ovalocytes 1+ (Not Present); Platelet Estimate Normal (Normal)
[2017-09-25] MEDS: Cortisporin *EAR*Susp 10 ML BOTTLE LEFT EAR SCH ×2 (08:31→21:36)
[2017-09-25] MEDS: (Roflumilast [Daliresp] 500 MCG) PO SCH (08:32)
[2017-09-25] MEDS: Diltiazem CD (24hr) 120 MG CAPSULE PO SCH ×2 (08:32→21:32)
[2017-09-25] MEDS: Potassium Chloride Elixir 20 MEQ/15 ML UDC PO SCH ×2 (08:32→21:32)
[2017-09-25] MEDS: Cholecalciferol (D-3) 1,000 UNIT TABLET PO SCH (08:33)
[2017-09-25] MEDS: Budesonide/Formoterol 160/4.5 MDI IH SCH ×2 (09:23→21:10)
[2017-09-25] MEDS: *HR* HYDROcodone/Acet 10/325 mg TABLET PO PRN ×2 (11:13→18:15)
--- NOTE | 2017-09-25 11:22 | Internal Med Progress Note ---
Date of Encounter: 09/25/17 Time of Encounter: 11:10 - Assessment and plan (1) Acute exacerbation of chronic obstructive airways disease Current Visit: No Status: Acute Assessment and plan: September 25. Continue Rocephin, Zithromax, lactobacillus, and present pulmonary regimen. (2) Anemia Current Visit: Yes Status: Acute Assessment and plan: September 25. Hemoglobin stable at 9.9. Anemia testing showed iron< 10, transferrin 377, and ferritin 20. We will give IV iron dextran. Qualifiers: Anemia type: unspecified type Qualified Code(s): D64.9 - Anemia, unspecified (3) History of DVT (deep vein thrombosis) Current Visit: No Status: Chronic Assessment and plan: September 25. Continue Coumadin (4) Weakness Current Visit: No Status: Acute Assessment and plan: September 25. Continue PT and OT intervention. (5) Anxiety Current Visit: No Status: Chronic Assessment and plan: September 25. Continue scheduled lorazepam. - Subjective Interval history: September 25. She feels more dyspneic but has no other new complaints. - Constitutional Vitals: Temp Pulse Resp BP Pulse Ox 97.7 F 76 26 125/77 97 09/25/17 08:33 09/25/17 08:33 09/25/17 09:26 09/25/17 08:33 09/25/17 09:26 Exam: She is lying in bed and appears slightly anxious. She appears more dyspneic today and has mild wheezing audible standing at the bedside. I reviewed her medications. I reviewed pertinent lab results with her. Internal Medicine: Result - Labs CBC & Chem 7: 09/25/17 05:43 09/24/17 06:30 Labs: Short CBC 09/25/17 Range/Units 05:43 WBC 8.5 D (4.3-11.1) K/mcL Hgb 9.9 L (11.5-15.4) g/dL Hct 34.8 L (35.3-44.9) % Plt Count 347 (140-400) K/mcL Neutrophils # 6.0 (1.6-8.9) K/mcL - ABG Interpretation ABG results: PT/INR, D-dimer PT 19.5 Seconds (9.4-12.1) H 09/25/17 05:43 Consult Discharge Plan - Plan Additional Instructions: Your blood pressure was elevated today so please follow-up with primary care provider upon discharge hospital Referrals: Kit Stern MD [Primary Care Provider] - 1 week
[2017-09-25] MEDS ORDERED: Iron Dextran Complex 1,000 MG in 0.9 % Sodium Chloride 500 ML IVPB ONE (12:00)
[2017-09-25] MEDS ORDERED: Verapamil 5 MG/2 ML VIAL IVP ONE ×2 (15:36→18:35)
[2017-09-25] MEDS ORDERED: *HR* Digoxin 0.5 MG/2 ML AMPUL IVP ONE ×2 (15:38→19:10)
[2017-09-25] MEDS: *HR* Warfarin 3 MG TABLET PO SCH (18:08)
[2017-09-26] MEDS: *HR* HYDROcodone/Acet 10/325 mg TABLET PO PRN ×3 (00:19→20:02)
[2017-09-26] MEDS: Levalbuterol Neb 1.25 MG/3 ML IH PRN ×7 (02:03→20:26)
[2017-09-26] MEDS: Melatonin 3 MG TABLET PO PRN ×2 (02:23→20:02)
[2017-09-26] MEDS: hydrOXYzine pamoate 25 MG CAPSULE PO PRN ×4 (02:23→20:02)
[2017-09-26] MEDS: *HR* LORazepam 1 MG TABLET PO SCH ×3 (05:35→17:35)
[2017-09-26 06:49] LABS: Basophils % 0.1 %; Eosinophils % 0.4 %; Hematocrit 36.1 % (35.3-44.9); Hemoglobin 9.9 g/dL (11.5-15.4); Immature Granulocytes % 0.6 % (0-4); Lymphocytes # 1.6 K/mcL (0.6-4.6); Lymphocytes % 20.6 %; Mean Corpuscular HGB Conc 27.4 g/dL (31.6-35.5); Mean Corpuscular Hemoglobin 22.3 pg (28.0-33.3); Mean Corpuscular Volume 81.5 fL (83.0-100.0); Mean Platelet Volume 9.9 fL (9.4-12.4); Monocytes % 12.2 %; Neutrophils # 5.2 K/mcL (1.6-8.9); Nucleated Red Blood Cells 0.4 /100 WBC (0); Platelet Count 300 K/mcL (140-400); Red Blood Count 4.43 M/mcL (3.82-4.97); Red Cell Distribution Width 21.4 % (11.5-14.5); Segmented Neutrophils % 66.1 %
[2017-09-26 07:08] LABS: BUN/Creatinine Ratio 17 (6-26); Blood Urea Nitrogen 11 mg/dL (8-23); Calcium 8.9 mg/dL (8.6-10.3); Carbon Dioxide 30 mEq/L (23-29); Chloride 97 mEq/L (98-107); Glucose 72 mg/dL (70-105); Osmolality,Calculated 282 (280-300); Potassium 3.3 mEq/L (3.5-5.1); Sodium 137 mEq/L (136-145); eGFR For African Americans > 60 (> 60); eGFR For Non-African Americans > 60 (> 60)
[2017-09-26 07:33] LABS: Anisocytosis 1+ (Not Present); Platelet Estimate Normal (Normal)
[2017-09-26 07:34] LABS: Hypochromasia Present (Not Present); Ovalocytes 1+ (Not Present)
[2017-09-26] MEDS: Cholecalciferol (D-3) 1,000 UNIT TABLET PO SCH (07:59)
[2017-09-26] MEDS: Diltiazem CD (24hr) 120 MG CAPSULE PO SCH ×2 (07:59→20:02)
[2017-09-26] MEDS: Potassium Chloride Elixir 20 MEQ/15 ML UDC PO SCH ×3 (07:59→20:02)
[2017-09-26] MEDS: Cortisporin *EAR*Susp 10 ML BOTTLE LEFT EAR SCH ×2 (08:00→20:09)
[2017-09-26] MEDS: (Roflumilast [Daliresp] 500 MCG) PO SCH (08:01)
[2017-09-26] MEDS: Budesonide/Formoterol 160/4.5 MDI IH SCH ×2 (09:11→20:27)
[2017-09-26 09:29] LABS: Folate 10.2 ng/mL (3.0-16.0)
--- NOTE | 2017-09-26 10:17 | Internal Med Progress Note ---
Date of Encounter: 09/26/17 Time of Encounter: 10:10 - Assessment and plan (1) Acute exacerbation of chronic obstructive airways disease Current Visit: No Status: Acute Assessment and plan: September 25. Continue Rocephin, Zithromax, lactobacillus, and present pulmonary regimen. September 26. Continue present regimen. WBC remains normal and left shift remains resolved. (2) Anemia Current Visit: Yes Status: Acute Assessment and plan: September 25. Hemoglobin stable at 9.9. Anemia testing showed iron< 10, transferrin 377, and ferritin 20. We will give IV iron dextran. September 26. Iron infusion completed without problems. B12 level returned low at 219. We will give B12 IM and start oral supplement also. Qualifiers: Anemia type: unspecified type Qualified Code(s): D64.9 - Anemia, unspecified (3) History of DVT (deep vein thrombosis) Current Visit: No Status: Chronic Assessment and plan: September 25. Continue Coumadin (4) Weakness Current Visit: No Status: Acute Assessment and plan: September 25. Continue PT and OT intervention. (5) Anxiety Current Visit: No Status: Chronic Assessment and plan: September 25. Continue scheduled lorazepam. (6) Hypokalemia Current Visit: Yes Status: Acute Assessment and plan: September 26. We will increase oral potassium supplement. (7) Atrial fibrillation with rapid ventricular response Current Visit: No Status: Acute Assessment and plan: September 26. Paroxysmal. She had an episode yesterday and required IV verapamil and Lanoxin. She is now back in normal sinus rhythm rate 104/m. We will continue present regimen and add Lanoxin. Continue monitoring. - Subjective Interval history: September 25. She feels more dyspneic but has no other new complaints. September 26. She feels weak and dyspneic. - Constitutional Vitals: Temp Pulse Resp BP Pulse Ox 97.6 F 111 18 126/75 96 09/26/17 04:18 09/26/17 04:18 09/26/17 06:37 09/26/17 04:18 09/26/17 06:37 Exam: She is sitting in bed and appears dyspneic at rest. Lungs show no peripheral wheezing but she has upper airway wheezing/mild stridor as has been heard several times on previous admissions. She is able to answer questions appropriately. I reviewed her medications. I reviewed pertinent lab results with her. Internal Medicine: Result - Labs CBC & Chem 7: 09/26/17 04:14 09/26/17 04:14 Labs: Short CBC 09/26/17 Range/Units 04:14 WBC 7.9 (4.3-11.1) K/mcL Hgb 9.9 L (11.5-15.4) g/dL Hct 36.1 (35.3-44.9) % Plt Count 300 (140-400) K/mcL Neutrophils # 5.2 (1.6-8.9) K/mcL BMP 09/26/17 04:14 Sodium 137 Potassium 3.3 L Chloride 97 L Carbon Dioxide 30 H BUN 11 Creatinine 0.64 Glucose 72 Calcium 8.9 - ABG Interpretation ABG results: PT/INR, D-dimer PT 19.5 Seconds (9.4-12.1) H 09/25/17 05:43 Consult Discharge Plan - Plan Additional Instructions: Your blood pressure was elevated today so please follow-up with primary care provider upon discharge hospital Referrals: Kit Stern MD [Primary Care Provider] - 1 week
[2017-09-26] MEDS ORDERED: Cyanocobalamin (B-12) 1,000 MCG/ML VIAL IM ONE (10:23)
[2017-09-26] MEDS: *HR* Digoxin 0.25 MG TABLET PO SCH (13:12)
[2017-09-26] MEDS ORDERED: Verapamil 5 MG/2 ML VIAL IVP ONE ×3 (15:51→18:06)
[2017-09-26] MEDS ORDERED: *HR* Digoxin 0.5 MG/2 ML AMPUL IVP ONE (16:27)
--- NOTE | 2017-09-26 16:49 | Electrocardiograph Report ---
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
[2017-09-26] MEDS: *HR* Warfarin 3 MG TABLET PO SCH (17:35)
[2017-09-26 18:00] LABS: ABG Base Excess 1 mEq/L (-2 to 3); ABG HCO3 25 mEq/L (21-27); ABG Oxygen Saturation 96 % (95-98); ABG PCO2 36 mmHg (35-45); ABG PH 7.45 pH Units (7.32-7.45); ABG PO2 75 mmHg (85-104); ABG TCO2 26 mEq/L (20-26)
[2017-09-26] MEDS ORDERED: Verapamil 5 MG/2 ML VIAL ONE (18:18)
[2017-09-27] MEDS: *HR* LORazepam 1 MG TABLET PO SCH ×2 (01:04→06:02)
[2017-09-27] MEDS: Levalbuterol Neb 1.25 MG/3 ML IH PRN ×4 (01:17→10:34)
[2017-09-27] MEDS ORDERED: Verapamil 5 MG/2 ML VIAL IVP ONE (05:27)
[2017-09-27] MEDS ORDERED: Verapamil 5 MG/2 ML VIAL ONE (05:28)
[2017-09-27 07:30] VITALS: BP 115/80
[2017-09-27] MEDS: *HR* Digoxin 0.25 MG TABLET PO SCH (08:40)
[2017-09-27] MEDS: Diltiazem CD (24hr) 120 MG CAPSULE PO SCH (08:41)
[2017-09-27] MEDS: Potassium Chloride Elixir 20 MEQ/15 ML UDC PO SCH (08:41)
[2017-09-27] MEDS: (Roflumilast [Daliresp] 500 MCG) PO SCH (08:41)
[2017-09-27] MEDS: Cholecalciferol (D-3) 1,000 UNIT TABLET PO SCH (08:41)
[2017-09-27] MEDS: Budesonide/Formoterol 160/4.5 MDI IH SCH (10:34)
--- NOTE | 2017-09-27 11:37 | Discharge Summary ---
Date of Encounter: 09/27/17 Time of Encounter: 10:20 - Discharge Diagnosis (1) Anemia Priority: Primary Status: Acute Qualifiers: Anemia type: unspecified type Qualified Code(s): D64.9 - Anemia, unspecified (2) Acute exacerbation of chronic obstructive airways disease Priority: Secondary Status: Acute (3) Atrial fibrillation with rapid ventricular response Priority: Secondary Status: Acute (4) History of DVT (deep vein thrombosis) Priority: Secondary Status: Chronic (5) Weakness Priority: Secondary Status: Acute (6) Anxiety Priority: Secondary Status: Chronic (7) Hypokalemia Priority: Secondary Status: Acute Hospital course: Ms. Stern is a 62 year old female who came to emergency room complaining of dyspnea onset 1 week earlier. She reports a cough productive of yellow sputum. She was evaluated in emergency room and felt to have exacerbation of COPD. She was also found to have significant anemia. She was admitted to [facility] floor for ongoing care needs. Initial orders were written by the emergency room physician. I saw her on September 24 and performed a history and physical. She was given 2 units packed red blood cells transfusion. Her hemoglobin remained stable posttransfusion. Anemia testing showed iron less than 10, transferrin 3 and 77, ferritin 20, B12 219, and folate 10.2. She was given iron dextran infusion and B12 injection. Hemoglobin was stable at 9.9 on September 26. She was started on Rocephin and Zithromax with lactobacillus. She had ongoing dyspnea during her hospital stay. She developed atrial fibrillation with RVR. She was given Lanoxin and verapamil. Sotalol and Cardizem were continued as per admission. She had brief episodes of converting back to normal sinus rhythm but would soon revert back to AF with RVR. I explained to her she needed a cardiac evaluation and possible intervention such as ablation procedure. She was agreeable to be transferred to [facility] where she has been seen before. - Time Spent with Patient Total time spent providing and/or coordinating discharge services: - Discharge Medications Home Medications: Melatonin 3 mg PO HS PRN 01/23/15 [History] Montelukast [Singulair] 10 mg PO DAILY #30 tablet 02/14/15 [Rx] Roflumilast [Daliresp] 500 mcg PO DAILY 09/17/15 [History] Budesonide/Formoterol 160/4.5 [Symbicort 160/4.5] 2 puff IH BID 03/20/16 [ History] Warfarin Sodium 3 mg PO QPM 03/20/16 [History] Multivitamin [Multi-Day Vitamins] 1 tab PO DAILY 03/26/16 [History] Atorvastatin [Lipitor] 10 mg PO HS 30 Days tablet 03/31/16 [Rx] Sotalol [Betapace] 80 mg PO Q12H 30 Days tablet 03/31/16 [Rx] Albuterol Sulfate [Albuterol Inhaler] 2 aerosol PO Q4HR PRN 08/28/16 [History] Reglan 5 mg PO TID 08/28/16 [History] Pantoprazole Sodium [Protonix] 40 mg PO QAM 10/02/16 [History] Cyclobenzaprine [Flexeril] 5 mg PO TID PRN #0 11/01/16 [Rx] Diltiazem CD (24hr) [Cardizem CD] 120 mg PO BID cap.er.24h 11/01/16 [Rx] HYDROcodone/Acet 10/325 mg [[place] 10-325 mg] 1 tab PO Q6HR PRN #240 tablet 11/01 [Rx] LORazepam [Ativan] 1 mg PO Q6H #120 tablet 11/01/16 [Rx] Ondansetron ODT [Zofran ODT] 4 mg SL Q6HR PRN #0 tab.rapdis 11/01/16 [Rx] Allergies/Adverse Reactions: 3 Allergy/AdvReac Type Severity Reaction Status Date / Time methyl salicylate Allergy See Verified 10/27/16 08:33 Comments metronidazole [From Flagyl] Allergy Hives Verified 10/27/16 08:33 orange juice [[place] Juice] Allergy Swelling Verified 10/27/16 08:33 of Lip/Tongue/Throat sertraline [From Zoloft] Allergy Agitated Verified 10/27/16 08:33 vancomycin Allergy Vomiting Verified 10/27/16 08:33 fidaxomicin [From Dificid] AdvReac Vomiting Verified 10/27/16 08:33 ketorolac [From Toradol] AdvReac Vomiting Verified 10/27/16 08:33 menthol AdvReac Difficulty Verified 10/27/16 08:33 Breathing meperidine [From Demerol] AdvReac Vomiting Verified 10/27/16 08:33 ropinirole [From Requip] AdvReac Vomiting Verified 10/27/16 08:33 simvastatin AdvReac Muscle Pain Verified 10/27/16 08:33 tramadol AdvReac Vomiting Verified 10/27/16 08:33 zolmitriptan AdvReac Agitated Verified 10/27/16 08:33 Date of admission: 09/23/17 17:52 Primary care physician: Kit Stern MD Consults: 09/24/17 09:43 Consult to Occupational Therapy [CONS] Routine Comment: Evaluate, develop and implement POC Reason for Consult: Weakness Does patient have active BEDREST order?: No Is patient medically & hemodynamically stable?: Yes Patient assessed for mobility or mobilized this visit?: Yes Consult to Physical Therapy [CONS] Routine Comment: Evaluate, develop and implement POC Reason for Consult: Weakness Does patient have active BEDREST order?: No Is patient medically & hemodynamically stable?: Yes Patient assessed for mobility or mobilized this visit?: Yes - Constitutional Vitals: Temp Pulse Resp BP Pulse Ox 98.5 F 151 14 115/80 92 09/27/17 07:28 09/27/17 07:28 09/27/17 10:34 09/27/17 07:28 09/27/17 10:34 - Patient Status Disposition: Transfer Other Condition: Good - Discharge Instructions Additional Instructions: Your blood pressure was elevated today so please follow-up with primary care provider upon discharge hospital
== END 2017-09-27 11:37 | disposition short-term general hospital (02) ==
LOC: INPPIK 14:42 → EMEROOPIK 14:42 → INPPIK 19:00
PROVIDERS: ADMIT Internal Medicine; ATTEND Internal Medicine

== ENCOUNTER 2017-12-18 16:24 | Observation (INO) ==
[2017-12-18] MEDS ORDERED: Levalbuterol Neb 1.25 MG/3 ML IH STA (16:29)
[2017-12-18] MEDS ORDERED: methylPREDNISolone 125 MG/2 ML VIAL IVP ONE (16:42)
--- NOTE | 2017-12-18 17:08 | Emergency Department Note ---
Disposition Clinical Impression: Elevated INR, Flank pain, Traumatic ecchymosis of lower back, Hematuria Disposition: Admitted As Inpatient Condition: Fair Time of Disposition: 18:45 Back Pain HPI - General Chief Complaint: ED Back Pain/Injury Stated Complaint: Back pain and shortness of breath Time Seen by Provider: 12/18/17 16:25 Source: patient Mode of arrival: ambulatory Limitations: no limitations Nursing Notes Reviewed: Yes Vital Signs Reviewed: Yes - History of Present Illness HPI Narrative: 62-year-old female presents by EMS today for left flank pain and shortness of breath. Patient has a long history of COPD. They gave her 1 DuoNeb en route. She wears 3 L nasal cannula at home at all times. This shortness of breath is not new for her. She states that the pain in her back makes her shortness of breath worse. Patient states the back pain is on her left flank area and has been there for 2 days. She states she has some bruising there. She denies trauma. She states she was bending over and felt a pop while she was trying to get her pull up on. She states nothing helps the pain. She describes it as a sharp pain. - Related Data Home Medications Medication Instructions Recorded Confirmed Melatonin 3 mg PO HS PRN 01/23/15 12/18/17 Roflumilast [Daliresp] 500 mcg PO DAILY 09/17/15 12/18/17 Budesonide/Formoterol 160/4.5 2 puff IH BID 03/20/16 12/18/17 [Symbicort 160/4.5] Warfarin Sodium 3 mg PO QPM 03/20/16 12/18/17 Multivitamin [Multi-Day Vitamins] 1 tab PO DAILY 03/26/16 12/18/17 Albuterol Sulfate [Albuterol 2 aerosol PO Q4HR PRN 08/28/16 12/18/17 Inhaler] Reglan 5 mg PO TID 08/28/16 12/18/17 Pantoprazole Sodium [Protonix] 40 mg PO QAM 10/02/16 12/18/17 predniSONE [PredniSONE] 10 mg PO DAILY 12/18/17 12/18/17 Previous Rx's Medication Instructions Recorded Montelukast [Singulair] 10 mg PO DAILY #30 tablet 02/14/15 Atorvastatin [Lipitor] 10 mg PO HS 30 Days tablet 03/31/16 Cyclobenzaprine [Flexeril] 5 mg PO TID PRN #0 11/01/16 HYDROcodone/Acet 10/325 mg [[place] 1 tab PO Q6HR PRN #240 tablet 11/01/16 10-325 mg] Ondansetron ODT [Zofran ODT] 4 mg SL Q6HR PRN #0 tab.rapdis 11/01/16 Ondansetron HCl [Zofran] 4 mg PO Q6HR PRN #8 tablet 10/31/17 LORazepam [Ativan] 2 mg PO TID 3 Days #10 tablet 11/15/17 Allergies Allergy/AdvReac Type Severity Reaction Status Date / Time methyl salicylate Allergy See Verified 12/18/17 16:27 Comments metronidazole [From Flagyl] Allergy Hives Verified 12/18/17 16:27 orange juice [[place] Juice] Allergy Swelling Verified 12/18/17 16:27 of Lip/Tongue/Throat sertraline [From Zoloft] Allergy Agitated Verified 12/18/17 16:27 vancomycin Allergy Vomiting Verified 12/18/17 16:27 fidaxomicin [From Dificid] AdvReac Vomiting Verified 12/18/17 16:27 ketorolac [From Toradol] AdvReac Vomiting Verified 12/18/17 16:27 menthol AdvReac Difficulty Verified 12/18/17 16:27 Breathing meperidine [From Demerol] AdvReac Vomiting Verified 12/18/17 16:27 ropinirole [From Requip] AdvReac Vomiting Verified 12/18/17 16:27 simvastatin AdvReac Muscle Pain Verified 12/18/17 16:27 tramadol AdvReac Vomiting Verified 12/18/17 16:27 zolmitriptan AdvReac Agitated Verified 12/18/17 16:27 Review of Systems: All other systems are negative except as noted/marked Chart generated with voice recognition software Nursing notes reviewed Old records reviewed Past Medical History - Past Medical History Attestation: Yes The following information was validated with the patient. Source: patient, old records reviewed, nursing notes reviewed Medical history: Reports: asthma, atrial fibrillation, COPD, DVT, GERD, hyperlipidemia, hypertension, renal disease, SVT, thyroid disease Surgical history: Reports: cataract, cholecystectomy, colostomy, herniorrhaphy, IVC filter Psychiatric history: Reports: anxiety, depression, panic disorder SHELLFISH MANAGER history: Reports: no SHELLFISH MANAGER history - Social History Smoking Status: Former smoker Smokeless Tobacco Status: No Alcohol use: Reports: none Drug use: Reports: none Physical Exam - General Limitations: no limitations General appearance: alert, in no apparent distress - Head Head exam: atraumatic, normocephalic, normal inspection - Eye Eye exam: Present: normal appearance, PERRL, EOMI - ENT ENT exam: normal exam, normal oropharynx, mucous membranes moist - Neck Neck exam: Present: normal inspection, full ROM, trachea midline. Absent: tenderness - Chest Chest inspection: Present: normal inspection, symmetric chest wall rise. Absent : tenderness - Respiratory Respiratory exam: Present: normal lung sounds bilaterally, wheezes. Absent: respiratory distress - Cardiovascular Cardiovascular exam: Present: normal rhythm, tachycardia - Abdominal Exam Abdominal exam: Present: soft, Non-Tender. Absent: tenderness Abdominal tenderness: Present: moderate - Extremities Exam Extremities exam: Present: normal inspection, full ROM. Absent: tenderness, pedal edema - Back Exam Back exam: Present: full ROM, tenderness, CVA tenderness (L), paraspinal tenderness, other (bruising L flank). Absent: CVA tenderness (R), muscle spasm , vertebral tenderness, rashes, sciatic notch tenderness (R) - Neurological Exam Neurological exam: Present: alert, oriented X3, CN II-XII intact, normal gait - Psychiatric Psychiatric exam: Present: normal affect, normal mood - Skin Skin exam: Present: warm, dry, intact, normal color Course Course Narrative: 62-year-old female who presents today with shortness of breath which is chronic for her. She seen here multiple times for this. She also has left flank pain. She has bruising over this. She states she felt a pop 2 days ago and then the bruising developed in the pain is been quite excruciating. Patient on Coumadin. Her INR today is 5.9. Because of the elevated INR and the bruising was very concerning got a CAT scan. She does have hematuria as well however there is no retroperitoneal hemorrhage or other obvious source of bleeding on her imaging. I started her on some vitamin K orally. I do think that she would benefit from being observed in the hospital as she does have active bleeding and an elevated INR. I will page Dr. Ewing hospitalist to discuss the case with him and CT like to keep her here or would like her transferred for observation. Dr. Ewing agreed to accept the patient for monitoring on the main side. Orders have been placed. Vital Signs Temperature 99.7 F H 12/18/17 16:29 Pulse Rate 80 12/18/17 16:29 Respiratory Rate 16 12/18/17 16:29 Blood Pressure 138/92 12/18/17 16:29 O2 Sat by Pulse Oximetry 95 12/18/17 16:29 Temperature 98.8 F 12/18/17 18:38 Pulse Rate 95 12/18/17 19:21 Respiratory Rate 22 12/18/17 19:21 Blood Pressure 145/74 12/18/17 19:21 O2 Sat by Pulse Oximetry 95 12/18/17 19:21 Oxygen Delivery Oxygen Delivery Nasal Cannula Back Pain/Injury - Medical Records Medical records reviewed: Yes I reviewed the patient's medical records. - Lab Data Lab results reviewed: Yes I reviewed the patient's lab results. Result diagrams: 12/18/17 16:56 12/18/17 16:56 Lab Results 12/18/17 12/18/17 12/18/17 Range/Units 16:56 16:56 16:56 WBC 10.2 (4.3-11.1) K/mcL RBC 4.59 (3.82-4.97) M/mcL Hgb 12.5 (11.5-15.4) g/dL Hct 42.2 (35.3-44.9) % MCV 91.9 (83.0-100.0) fL MCH 27.2 L (28.0-33.3) pg MCHC 29.6 L (31.6-35.5) g/dL RDW 16.1 H (11.5-14.5) % Plt Count 288 (140-400) K/mcL MPV 9.4 (9.4-12.4) fL Immature Gran % 0.6 (0-4) % Seg Neutrophils % 85.2 % Lymphocytes % 8.6 % Monocytes % 4.8 % Eosinophils % 0.7 % Basophils % 0.1 % Neutrophils # 8.7 (1.6-8.9) K/mcL Lymphocytes # 0.9 (0.6-4.6) K/mcL Monocytes # 0.5 (0.0-1.3) K/mcL Eosinophils # 0.1 (0.0-0.6) K/mcL Basophils # 0.0 (0.0-0.2) K/mcL PT 66.8 H* (9.4-12.1) Seconds INR 5.9 H* Sodium 137 (136-145) mEq/L Potassium 3.7 (3.5-5.1) mEq/L Chloride 101 (98-107) mEq/L Carbon Dioxide 28 (23-29) mEq/L BUN 17 (8-23) mg/dL Creatinine 0.79 (0.60-1.20) mg/dL Est GFR ( Amer) > 60 (> 60) Est GFR (Non-Af Amer) > 60 (> 60) BUN/Creatinine Ratio 22 (6-26) Glucose 144 H (70-105) mg/dL Calculated Osmolality 288 (280-300) Calcium 9.6 (8.6-10.3) mg/dL Magnesium 1.8 (1.6-2.6) mg/dL Troponin I (< 0.04) ng/mL Urine Color (Yellow) Urine Clarity (Clear) Urine pH (5.0-8.0) pH Units Ur Specific [place] (1.010-1.025) Urine Protein (Neg-Trace) mg/dL Urine Glucose (UA) (Normal) mg/dL Urine Ketones (Negative) mg/dL Urine Blood (Negative) Urine Nitrite (Negative) Urine Bilirubin (Negative) Urine Urobilinogen (Normal) mg/dL Ur Leukocyte Esterase (Negative) Urine Microscopic RBC (0-3) per hpf Urine Microscopic WBC (0-3) per hpf Ur Squamous Epith Cells (None-Few) per lpf Urine Bacteria (None-Few) per hpf Urine Mucus (Few) Urine Yeast (None Seen) per hpf Ur Culture Indicated? (NO) 12/18/17 12/18/17 Range/Units 16:56 17:20 WBC (4.3-11.1) K/mcL RBC (3.82-4.97) M/mcL Hgb (11.5-15.4) g/dL Hct (35.3-44.9) % MCV (83.0-100.0) fL MCH (28.0-33.3) pg MCHC (31.6-35.5) g/dL RDW (11.5-14.5) % Plt Count (140-400) K/mcL MPV (9.4-12.4) fL Immature Gran % (0-4) % Seg Neutrophils % % Lymphocytes % % Monocytes % % Eosinophils % % Basophils % % Neutrophils # (1.6-8.9) K/mcL Lymphocytes # (0.6-4.6) K/mcL Monocytes # (0.0-1.3) K/mcL Eosinophils # (0.0-0.6) K/mcL Basophils # (0.0-0.2) K/mcL PT (9.4-12.1) Seconds INR Sodium (136-145) mEq/L Potassium (3.5-5.1) mEq/L Chloride (98-107) mEq/L Carbon Dioxide (23-29) mEq/L BUN (8-23) mg/dL Creatinine (0.60-1.20) mg/dL Est GFR ( Amer) (> 60) Est GFR (Non-Af Amer) (> 60) BUN/Creatinine Ratio (6-26) Glucose (70-105) mg/dL Calculated Osmolality (280-300) Calcium (8.6-10.3) mg/dL Magnesium (1.6-2.6) mg/dL Troponin I < 0.03 (< 0.04) ng/mL Urine Color Yellow (Yellow) Urine Clarity Slightly Cloudy A (Clear) Urine pH 5.5 (5.0-8.0) pH Units Ur Specific [place] >= 1.030 H (1.010-1.025) Urine Protein 100 H (Neg-Trace) mg/dL Urine Glucose (UA) Normal (Normal) mg/dL Urine Ketones Negative (Negative) mg/dL Urine Blood Large H (Negative) Urine Nitrite Negative (Negative) Urine Bilirubin Small H (Negative) Urine Urobilinogen Normal (Normal) mg/dL Ur Leukocyte Esterase Negative (Negative) Urine Microscopic RBC 30-50 H (0-3) per hpf Urine Microscopic WBC 0-3 (0-3) per hpf Ur Squamous Epith Cells Few (None-Few) per lpf Urine Bacteria Few (None-Few) per hpf Urine Mucus Few (Few) Urine Yeast Few H (None Seen) per hpf Ur Culture Indicated? NO (NO) - Radiology Data Radiology results reviewed: Yes I reviewed the patient's radiology results. EXAMINATION: CT OF THE CHEST WITHOUT CONTRAST 12/18/2017 5:47 pm TECHNIQUE: CT of the chest was performed without the administration of intravenous contrast. Multiplanar reformatted images are provided for review. Dose modulation, iterative reconstruction, and/or weight based adjustment of the mA/kV was utilized to reduce the radiation dose to as low as reasonably achievable. COMPARISON: CT dated 04/15/2016. HISTORY: ORDERING SYSTEM PROVIDED HISTORY: pain in flank FINDINGS: Mediastinum: Mild cardiomegaly. No significant pericardial effusion or thickening. Compared to the prior CT, there are new pacer leads in area of the right atrium, right ventricle and coronary sinus. The main pulmonary caliber is dilated to 3.2 cm. There is mild atherosclerotic disease of the thoracic aorta without any definite acute abnormality. Thyroid is unremarkable. Trachea is midline. No significant mediastinal lymphadenopathy. No significant mediastinal fluid or hemorrhage. Calcified hilar lymph nodes. Lungs/pleura: Evaluation of lung parenchyma is limited by motion artifact, at the lung bases. Moderate to severe diffuse emphysematous changes. No pneumothorax. No pleural effusions. Scarring or atelectasis of right middle lobe and lingula. There are subpleural nodules in the left posterior lung base measuring up to 9 mm, which are similar to the prior CT from 04/15/2016 and likely benign. No definite focal lung opacity. No evidence of acute consolidation airspace disease. Visualized airways are patent. Right lower lobe calcified granuloma. Upper Abdomen: See same-day separate CT report of the abdomen and pelvis. Status post cholecystectomy. Otherwise limited views of the upper abdomen demonstrate no definite acute abnormality. Soft Tissues/Bones: Bony demineralization. No definite acute osseous abnormality. CT/CT chest wo con IMPRESSION: Examination is slightly limited by respiratory motion artifact. No definite acute findings. Stable moderate/severe diffuse emphysematous changes. Subpleural nodules measuring up to 9 mm in the posterior left lung base are stable from 04/15/2016 and likely benign. D/ / 12/18/2017 18:18:36 Tip Jacobo MD / bladimir Interpreting Provider: Tip Jacobo MD EXAMINATION: CT OF THE ABDOMEN AND PELVIS WITHOUT CONTRAST 12/18/2017 5:47 pm TECHNIQUE: CT of the abdomen and pelvis was performed without the administration of intravenous contrast. Multiplanar reformatted images are provided for review. Dose modulation, iterative reconstruction, and/or weight based adjustment of the mA/kV was utilized to reduce the radiation dose to as low as reasonably achievable. COMPARISON: Prior studies most recent 10/31/2017. HISTORY: ORDERING SYSTEM PROVIDED HISTORY: pain in flank FINDINGS: Lower Chest: Fibronodular changes in the region of the left lateral costophrenic angle are not significantly changed. Streak artifact associated with electrodes related to pacemaker device again identified. There is minimal-mild pericardial fluid/thickening which appears slightly increased when compared to the study of 10/31/2017. Organs: No focal abnormality of the liver is identified. Patient is status post cholecystectomy. Splenic calcifications consistent with changes of old granulomatous disease. Again noted are mild atrophic changes of the pancreas. Adrenal glands and kidneys are unchanged in appearance. No radiopaque renal/ureteral calculus is identified. No evidence of hydronephrosis/hydroureter. No radiographic findings to suggest presence of acute obstructive uropathy. GI/Bowel: Small bowel normal in caliber with no findings to suggest presence of obstruction. Normal appearing appendix is identified. There is moderate nonspecific distention of ascending and proximal/mid transverse colon by bowel gas and stool. Left lower quadrant colostomy is identified. A few colonic diverticula are identified with no findings to suggest changes of diverticulitis. Radiopaque fecal material again identified within the rectum. No focal fluid collection to suggest presence of abscess. No evidence of intraperitoneal free air. Pelvis: Uterus and adnexal structures are unchanged in appearance. Small low-attenuation lesions suggestive of cysts/follicles again identified in the region of the ovaries, unchanged. No significant free fluid identified within the pelvis. No focal abnormality of the urinary bladder is identified. Peritoneum/Retroperitoneum: No new abdominal/pelvic lymphadenopathy is identified. Atherosclerotic changes of the abdominal aorta with no evidence of aneurysm. Infrarenal IVC filter again identified. Bones/Soft Tissues: Again noted is diastasis of abdominal wall musculature with anterior bulge/herniation of the linea alba which is unchanged. Again noted are degenerative changes of the spine. Although incompletely visualized, there is new concavity/deformity of the superior endplate with associated mild anterior wedging of the T11 vertebral body. This represents a new finding when compared to CT of the abdomen/pelvis. CT/CT abd pelvis wo no iv no oral IMPRESSION: 1. No evidence of acute intra-abdominal abnormality. No evidence of bowel obstruction, intraperitoneal free air, or abscess. 2. No evidence of radiopaque renal/ureteral calculus. No radiographic findings to suggest presence of acute obstructive uropathy. 3. Findings suspicious for presence of subtle compression fracture of superior endplate of T11 vertebral body as described above. D/ / 12/18/2017 18:10:34 Javon Cid MD / bladimir Interpreting Provider: Javon Cid MD - EKG Data EKG attestation: Yes I reviewed and interpreted this EKG. EKG results narrative: EKG interpreted by myself as a paced rhythm. She has underlying atrial flutter. Her rate is 61 QTC is 428
[2017-12-18] MEDS ORDERED: *HR* HYDROcodone/Acet 5/325 mg TABLET PO ONE (17:21)
[2017-12-18 17:24] LABS: INR 5.9; Prothrombin Time 66.8 Seconds (9.4-12.1)
[2017-12-18 17:26] LABS: Bilirubin,Urine Small (Negative); Blood,Urine Large (Negative); Clarity,Urine Slightly Cloudy (Clear); Color,Urine Yellow (Yellow); Glucose,Urine (UA) Normal (Normal); Ketones,Urine Negative (Negative); Leukocyte Esterase,Urine Negative (Negative); Nitrite,Urine Negative (Negative); PH,Urine 5.5 pH Units (5.0-8.0); Protein,Urine 100 mg/dL (Neg-Trace); Specific Gravity,Urine >= 1.030 (1.010-1.025); Urobilinogen,Urine Normal (Normal)
[2017-12-18 17:27] LABS: Basophils % 0.1 %; Eosinophils # 0.1 K/mcL (0.0-0.6); Eosinophils % 0.7 %; Hematocrit 42.2 % (35.3-44.9); Hemoglobin 12.5 g/dL (11.5-15.4); Immature Granulocytes % 0.6 % (0-4); Lymphocytes # 0.9 K/mcL (0.6-4.6); Lymphocytes % 8.6 %; Mean Corpuscular HGB Conc 29.6 g/dL (31.6-35.5); Mean Corpuscular Hemoglobin 27.2 pg (28.0-33.3); Mean Corpuscular Volume 91.9 fL (83.0-100.0); Mean Platelet Volume 9.4 fL (9.4-12.4); Monocytes # 0.5 K/mcL (0.0-1.3); Monocytes % 4.8 %; Neutrophils # 8.7 K/mcL (1.6-8.9); Platelet Count 288 K/mcL (140-400); Red Blood Count 4.59 M/mcL (3.82-4.97); Red Cell Distribution Width 16.1 % (11.5-14.5); Segmented Neutrophils % 85.2 %
[2017-12-18 17:34] LABS: BUN/Creatinine Ratio 22 (6-26); Blood Urea Nitrogen 17 mg/dL (8-23); Calcium 9.6 mg/dL (8.6-10.3); Carbon Dioxide 28 mEq/L (23-29); Chloride 101 mEq/L (98-107); Glucose 144 mg/dL (70-105); Magnesium 1.8 mg/dL (1.6-2.6); Osmolality,Calculated 288 (280-300); Potassium 3.7 mEq/L (3.5-5.1); Sodium 137 mEq/L (136-145); eGFR For African Americans > 60 (> 60); eGFR For Non-African Americans > 60 (> 60)
[2017-12-18 17:38] LABS: RBC,Urine 30-50 per hpf (0-3); WBC,Urine 0-3 per hpf (0-3)
[2017-12-18 17:39] LABS: Bacteria,Urine Few per hpf (None-Few); Mucus,Urine Few (Few); Squamous Epithelial Cell,Urine Few per lpf (None-Few); Yeast,Urine Few per hpf (None Seen)
[2017-12-18] MEDS ORDERED: *HR* Phytonadione 5 MG TABLET PO ONE (18:38)
[2017-12-18] MEDS ORDERED: Naloxone 0.4 MG/ML INJ IVP PRN (20:05)
[2017-12-18] MEDS ORDERED: Ondansetron ODT 4 MG TAB.RAPDIS PO PRN (20:05)
[2017-12-18] MEDS: *HR* HYDROcodone/Acet 10/325 mg TABLET PO PRN (20:35)
[2017-12-18] MEDS: *HR* LORazepam 1 MG TABLET PO SCH (20:35)
[2017-12-18] MEDS: Budesonide/Formoterol 160/4.5 MDI IH SCH (21:55)
[2017-12-18] MEDS: Melatonin 3 MG TABLET PO PRN (22:23)
[2017-12-19] MEDS: *HR* HYDROcodone/Acet 10/325 mg TABLET PO PRN ×4 (02:35→22:35)
[2017-12-19 05:43] LABS: Basophils % 0.1 %; Hemoglobin 12.5 g/dL (11.5-15.4); Immature Granulocytes % 0.6 % (0-4); Lymphocytes # 0.5 K/mcL (0.6-4.6); Lymphocytes % 6.3 %; Mean Corpuscular HGB Conc 30.5 g/dL (31.6-35.5); Mean Corpuscular Hemoglobin 27.7 pg (28.0-33.3); Mean Corpuscular Volume 90.7 fL (83.0-100.0); Mean Platelet Volume 9.3 fL (9.4-12.4); Monocytes # 0.1 K/mcL (0.0-1.3); Monocytes % 1.2 %; Neutrophils # 7.6 K/mcL (1.6-8.9); Platelet Count 271 K/mcL (140-400); Red Blood Count 4.52 M/mcL (3.82-4.97); Red Cell Distribution Width 15.9 % (11.5-14.5); Segmented Neutrophils % 91.8 %
[2017-12-19 05:52] LABS: INR 4.2
[2017-12-19 05:55] LABS: Activated Partial Thrombo Time 47.5 Seconds (26.0-36.0)
[2017-12-19 06:04] LABS: BUN/Creatinine Ratio 24 (6-26); Blood Urea Nitrogen 15 mg/dL (8-23); Carbon Dioxide 30 mEq/L (23-29); Chloride 100 mEq/L (98-107); Glucose 150 mg/dL (70-105); Osmolality,Calculated 290 (280-300); Potassium 3.7 mEq/L (3.5-5.1); Sodium 138 mEq/L (136-145); eGFR For African Americans > 60 (> 60); eGFR For Non-African Americans > 60 (> 60)
[2017-12-19] MEDS: *HR* LORazepam 1 MG TABLET PO SCH ×2 (07:42→21:23)
[2017-12-19] MEDS: (Roflumilast [Daliresp] 500 MCG) PO SCH (07:42)
[2017-12-19] MEDS: predniSONE 10 MG TABLET PO SCH (07:43)
[2017-12-19] MEDS: Budesonide/Formoterol 160/4.5 MDI IH SCH ×2 (08:44→22:00)
--- NOTE | 2017-12-19 08:46 | Electrocardiograph Report ---
[address] [place], [place] [address] Test Date: 2017-12-18 Pat Name: Meg Stern Department: [id number] Room: [facility] Gender: F Groundsman: Kendrick : 1955 Requested By: Sandy Fishman Order Number: [id number] Reading MD: Jeff Daugherty Measurements Intervals [place] Rate: 61 P: [place]: 0 QRS: -82 QRSD: 128 T: 88 QT: 426 QTc: 428 Interpretive Statements ELECTRONIC VENTRICULAR PACEMAKER BASELINE ARTIFACT Electronically Signed On 12-19-2017 8:44:46 EDT by Jeff Daugherty
[2017-12-19] MEDS ORDERED: *HR* FentaNYL PATCH 12 MCG PATCH TD SCH (11:15)
--- NOTE | 2017-12-19 11:21 | Internal Med History&Physical ---
Date of Encounter: 12/19/17 Time of Encounter: 10:45 Assessment and Plan (1) Traumatic ecchymosis of lower back Current visit: Yes Status: Acute Nontraumatic. INR was elevated in emergency room and a vitamin K dose given. INR will be monitored. She will have topical and oral analgesics. PT and OT evaluation will be done Qualifiers: Encounter type: initial encounter Qualified Code(s): S30.0XXA - Contusion of lower back and pelvis, initial encounter (2) Atrial fibrillation with rapid ventricular response Current visit: No Status: Acute Status post ablation with pacemaker placement. She is no longer on oral antiarrhythmics. Resume Coumadin when INR decreases to therapeutic range. (3) Hematuria Current visit: Yes Status: Acute Present intermittently since 2013. Suspect increased amount due in part to elevated INR. CT of abdomen/pelvis 12/18/2017 showed no obvious renal pathology. Qualifiers: Hematuria type: unspecified type Qualified Code(s): R31.9 - Hematuria, unspecified (4) Anxiety Current visit: No Status: Chronic Continue Ativan (5) Weakness Current visit: No Status: Acute We will order PT and OT evaluation. Internal Medicine - H&P: HPI Chief complaint: Left flank pain Admitted From: Emergency Dept Plans for Post Hospital Care: Home History of present illness: Ms. Stern is a 62 year old female who came to emergency room stating she has had increasing pain since December 15 when she reached for something and heard/felt a "pop" in her left flank area followed by increasing pain. Her noted bruising in the left flank on December 17. She reports the pain became progressively worse so she came to emergency room on December 18. Ecchymosis overlying the left posterior lateral lower rib area was noted. She was admitted to [facility] floor for ongoing care needs. She denies any trauma to the left flank. She is on Coumadin for history of recurrent DVT with pulmonary emboli. Her dose has not changed for several months. She has not used antibiotics recently. Her most recent PT/INR prior to emergency room was 3.8 on 11/15/2017. Past Med Surg Social Fam HX - Past Medical History Medical history: asthma, atrial fibrillation, COPD, DVT, GERD, hyperlipidemia, hypertension, renal disease, SVT, thyroid disease Additional medical history: DIVERTICULITIS WITH RUPTURED BOWEL Psychiatric history: anxiety, depression, panic disorder - Past Surgical History Surgical History: cataract, cholecystectomy, colostomy, herniorrhaphy, IVC filter Additional surgical history: Pacemaker 09/2017 - Social History Smoking Status: Former smoker Smokeless Tobacco Status: No Alcohol use: none Drug use: none - Family History Father Family Member Ethnicity: Non- Living Status: Hx Family Cardiac Disorders: Yes ( of [place] at 58) Internal Medicine - H&P: Meds Melatonin 3 mg PO HS PRN 01/23/15 [History] Montelukast [Singulair] 10 mg PO DAILY #30 tablet 02/14/15 [Rx] Roflumilast [Daliresp] 500 mcg PO DAILY 09/17/15 [History] Budesonide/Formoterol 160/4.5 [Symbicort 160/4.5] 2 puff IH BID 03/20/16 [ History] Warfarin Sodium 3 mg PO QPM 03/20/16 [History] Multivitamin [Multi-Day Vitamins] 1 tab PO DAILY 03/26/16 [History] Atorvastatin [Lipitor] 10 mg PO HS 30 Days tablet 03/31/16 [Rx] Albuterol Sulfate [Albuterol Inhaler] 2 aerosol PO Q4HR PRN 08/28/16 [History] Reglan 5 mg PO TID 08/28/16 [History] Pantoprazole Sodium [Protonix] 40 mg PO QAM 10/02/16 [History] Cyclobenzaprine [Flexeril] 5 mg PO TID PRN #0 11/01/16 [Rx] HYDROcodone/Acet 10/325 mg [[place] 10-325 mg] 1 tab PO Q6HR PRN #240 tablet 11/01 [Rx] Ondansetron ODT [Zofran ODT] 4 mg SL Q6HR PRN #0 tab.rapdis 11/01/16 [Rx] Ondansetron HCl [Zofran] 4 mg PO Q6HR PRN #8 tablet 10/31/17 [Rx] LORazepam [Ativan] 2 mg PO TID 3 Days #10 tablet 11/15/17 [Rx] predniSONE [PredniSONE] 10 mg PO DAILY 12/18/17 [History] 3 Allergy/AdvReac Type Severity Reaction Status Date / Time methyl salicylate Allergy See Verified 07/04/18 16:27 Comments metronidazole [From Flagyl] Allergy Hives Verified 12/18/17 16:27 orange juice [[place] Juice] Allergy Swelling Verified 12/18/17 16:27 of Lip/Tongue/Throat sertraline [From Zoloft] Allergy Agitated Verified 12/18/17 16:27 vancomycin Allergy Vomiting Verified 12/18/17 16:27 fidaxomicin [From Dificid] AdvReac Vomiting Verified 12/18/17 16:27 ketorolac [From Toradol] AdvReac Vomiting Verified 12/18/17 16:27 menthol AdvReac Difficulty Verified 12/18/17 16:27 Breathing meperidine [From Demerol] AdvReac Vomiting Verified 12/18/17 16:27 ropinirole [From Requip] AdvReac Vomiting Verified 12/18/17 16:27 simvastatin AdvReac Muscle Pain Verified 12/18/17 16:27 tramadol AdvReac Vomiting Verified 12/18/17 16:27 zolmitriptan AdvReac Agitated Verified 12/18/17 16:27 All Systems PM: A 10-system review of systems was performed and is negative for pertinent findings except as documented above in the HPI. Review of systems: Review of systems from her September 2017 [facility] hospitalization were reviewed and revised as below. Gen.: Her weight has increased from 68.039 kg on 06/18/2015 to present weight of 72.575 kg. Cardiovascular: She has hypertension. She has paroxysmal atrial fibrillation and was hospitalized for this at [facility] March 2016 and was initially placed on Rythmol but later changed to sotalol. She had DVT with pulmonary embolus July 2014 and had IVC filter placed at [facility]. She was initially placed on Coumadin but this was discontinued after approximately 3 months and she was placed on Xarelto. She developed nosebleeds and other complications so was restarted back on Coumadin after a few weeks. She had another pulmonary embolism February 2015 at [facility] after bowel surgery. She was admitted to [facility] September 2017 with AF with RVR. She was transferred to [facility] where she reports an ablation procedure was done followed by pacemaker placement. She had a limited echocardiogram done 03/21/2016 which showed normal LV size. The LVEF was 55%. There was mild diastolic dysfunction reported on an September 2015 echo but no significant valvular abnormality seen. Left atrial size was normal at 3.30 cm. She had a heart catheter 2008 and an exercise stress test June 2012 which were negative. Respiratory: She smoked from age [age] up to 3 packs per day. She had pulmonary function test done 09/15/2015 which showed very severe COPD. She follows with Dr. Jarvis at [facility]. She wears oxygen 24/7 at 2 L/m. She has had negative workup for sleep apnea in the past. She considered lung transplant at one time for COPD but decided against that. She is been hospitalized many times at [facility] the past few years with dyspnea. Her most recent chest CT was 04/15/2016 which showed no acute abnormalities. GI: She is status post cholecystectomy. She had polyps seen on a 2005 colonoscopy but has not had follow-up procedure done. She had an EGD approximately 2006. She denies other liver or exocrine pancreas disorders. She had segmental resection of colon secondary to diverticulitis with perforation February 2015 at [facility]. Her postop course was complicated with pulmonary embolism. She had development of a colostomy and has been told she will not have a takedown procedure because of her severe COPD. : She had hematuria in the past that resolved. She denies other kidney or bladder disorders. She has had tubal ligation. Endocrine: She has hyperlipidemia but no known diabetes or thyroid disease. She has been diagnosed with vitamin D deficiency but her last vitamin D level was 27 on 11/05/2016. Neurologic: No history of large distribution strokes or seizures. Hematology/oncology: She has had anemia and B12 and iron deficiency past. She has not had documented internal malignancies. Psychiatric: She has anxiety and depression but no other mental health issues Musk skeletal: She has DJD and osteoporosis but no known gout. - Constitutional Vitals: Temp Pulse Resp BP Pulse Ox 98.3 F 61 16 116/69 98 12/19/17 09:00 12/19/17 09:00 12/19/17 09:00 12/19/17 09:00 12/19/17 09:00 Exam: Gen.: She is a well-developed well-nourished female lying in bed who appears in significant pain on movement. HEENT: Head is atraumatic and normocephalic. Eyes: EOMI. There is no scleral icterus. Mouth: Mucosa is moist. Neck: Supple and nontender. There is no thyromegaly or adenopathy noted. Heart: Regular without murmurs or gallops. There is an occasional ectopic beat. Lungs: No wheezes or crackles are heard. She has diminished breath sounds diffusely. Abdomen: Soft and nontender. No masses or guarding are noted. Extremities: There is no cyanosis edema or clubbing noted. Dorsalis pedis and posttibial pulses are 1-2 over 2 bilaterally. Neurologic: Mental status: She is talkative and a good historian. Cranial nerves: Smile is symmetric. Forehead wrinkles bilaterally. Tongue protrudes midline. EOMI. Motor: There is no pronator drift. Cerebellar: Finger to nose is intact bilaterally. Skin: She has ecchymosis over the left posterior lower rib area. Skin is warm and dry otherwise. Internal Med - H&P Results - Labs CBC & Chem 7: 12/19/17 05:17 12/19/17 05:17 Labs: Short CBC 12/19/17 Range/Units 05:17 WBC 8.3 (4.3-11.1) K/mcL Hgb 12.5 (11.5-15.4) g/dL Hct 41.0 (35.3-44.9) % Plt Count 271 (140-400) K/mcL Neutrophils # 7.6 (1.6-8.9) K/mcL BMP 12/19/17 05:17 Sodium 138 Potassium 3.7 Chloride 100 Carbon Dioxide 30 H BUN 15 Creatinine 0.63 Glucose 150 H Calcium 10.0 - VTE Reasons for not Prescribing Prophylaxis: Not indicated-Anticoagulated or INR therapeutic
[2017-12-19] MEDS: Methyl Salicylate/Menthol 28 GM TUBE TP SCH (12:49)
[2017-12-19] MEDS: Albuterol 2.5 MG/3 ML NEBULIZER IH PRN ×2 (16:30→22:00)
[2017-12-20] MEDS: *HR* HYDROcodone/Acet 10/325 mg TABLET PO PRN ×4 (04:41→22:33)
[2017-12-20] MEDS: Albuterol 2.5 MG/3 ML NEBULIZER IH PRN ×3 (05:14→22:09)
[2017-12-20 05:30] LABS: Basophils % 0.2 %; Eosinophils # 0.1 K/mcL (0.0-0.6); Eosinophils % 0.5 %; Hematocrit 39.8 % (35.3-44.9); Hemoglobin 12.1 g/dL (11.5-15.4); Immature Granulocytes % 0.6 % (0-4); Lymphocytes # 1.5 K/mcL (0.6-4.6); Lymphocytes % 9.8 %; Mean Corpuscular HGB Conc 30.4 g/dL (31.6-35.5); Mean Corpuscular Hemoglobin 27.8 pg (28.0-33.3); Mean Corpuscular Volume 91.5 fL (83.0-100.0); Mean Platelet Volume 9.3 fL (9.4-12.4); Monocytes # 0.9 K/mcL (0.0-1.3); Monocytes % 6.2 %; Neutrophils # 12.4 K/mcL (1.6-8.9); Platelet Count 281 K/mcL (140-400); Red Blood Count 4.35 M/mcL (3.82-4.97); Red Cell Distribution Width 15.9 % (11.5-14.5); Segmented Neutrophils % 82.7 %
[2017-12-20 05:37] LABS: INR 1.2; Prothrombin Time 13.9 Seconds (9.4-12.1)
[2017-12-20] MEDS: *HR* LORazepam 1 MG TABLET PO SCH ×2 (08:10→21:22)
[2017-12-20] MEDS: Methyl Salicylate/Menthol 28 GM TUBE TP SCH (08:10)
[2017-12-20] MEDS: (Roflumilast [Daliresp] 500 MCG) PO SCH (08:11)
[2017-12-20] MEDS: predniSONE 10 MG TABLET PO SCH (08:11)
--- NOTE | 2017-12-20 09:29 | Internal Med Progress Note ---
Date of Encounter: 12/20/17 Time of Encounter: 09:20 - Assessment and plan (1) Traumatic ecchymosis of lower back Current Visit: Yes Status: Acute Assessment and plan: December 20. Continue topical and oral analgesics. INR has decreased to 1.2 so Coumadin will be restarted but at lower dose. Qualifiers: Encounter type: initial encounter Qualified Code(s): S30.0XXA - Contusion of lower back and pelvis, initial encounter (2) Atrial fibrillation with rapid ventricular response Current Visit: No Status: Acute Assessment and plan: December 20. Resume Coumadin at lower dose. (3) Hematuria Current Visit: Yes Status: Acute Assessment and plan: December 20. Observe Qualifiers: Hematuria type: unspecified type Qualified Code(s): R31.9 - Hematuria, unspecified (4) Anxiety Current Visit: No Status: Chronic Assessment and plan: December 20. Continue Ativan (5) Weakness Current Visit: No Status: Acute Assessment and plan: December 20. Continue therapy intervention (6) Constipation Current Visit: Yes Status: Acute Assessment and plan: December 20. Will start MiraLAX and MOM. Qualifiers: Constipation type: unspecified constipation type Qualified Code(s): K59.00 - Constipation, unspecified - Subjective Interval history: December 20. She has no new complaints except constipation. Her back pain has not improved. - Constitutional Vitals: Temp Pulse Resp BP Pulse Ox 97.8 F 60 18 113/62 98 12/20/17 07:18 12/20/17 07:18 12/20/17 07:18 12/20/17 07:18 12/20/17 08:24 Exam: She has lying in bed and appears in mild to moderate pain. The ecchymoses in her left lower paraspinal area has not significant changed. No new areas of ecchymosis are noted. I reviewed her medications and lab results. Internal Medicine: Result - Labs CBC & Chem 7: 12/20/17 04:36 12/19/17 05:17 Labs: Short CBC 12/20/17 Range/Units 04:36 WBC 15.0 H D (4.3-11.1) K/mcL Hgb 12.1 (11.5-15.4) g/dL Hct 39.8 (35.3-44.9) % Plt Count 281 (140-400) K/mcL Neutrophils # 12.4 H (1.6-8.9) K/mcL - ABG Interpretation ABG results: PT/INR, D-dimer PT 13.9 Seconds (9.4-12.1) H D 12/20/17 04:36 - VTE Reasons for not Prescribing Prophylaxis: Not indicated-Anticoagulated or INR therapeutic Consult Discharge Plan - Plan Referrals: Kit Stern MD [Primary Care Provider] -
[2017-12-20] MEDS: Budesonide/Formoterol 160/4.5 MDI IH SCH ×2 (10:18→22:09)
[2017-12-20] MEDS: MOM Conc 10 ML UD.LIQ PO SCH (11:22)
[2017-12-20] MEDS: *HR* Warfarin 5 MG TABLET PO SCH (17:20)
[2017-12-21] MEDS: *HR* HYDROcodone/Acet 10/325 mg TABLET PO PRN ×3 (06:38→20:31)
[2017-12-21 07:18] LABS: Basophils % 0.2 %; Eosinophils # 0.2 K/mcL (0.0-0.6); Eosinophils % 1.7 %; Hematocrit 43.4 % (35.3-44.9); Hemoglobin 12.8 g/dL (11.5-15.4); Immature Granulocytes % 0.5 % (0-4); Lymphocytes # 1.8 K/mcL (0.6-4.6); Lymphocytes % 13.8 %; Mean Corpuscular HGB Conc 29.5 g/dL (31.6-35.5); Mean Corpuscular Hemoglobin 27.4 pg (28.0-33.3); Mean Corpuscular Volume 92.9 fL (83.0-100.0); Monocytes % 7.8 %; Neutrophils # 9.7 K/mcL (1.6-8.9); Platelet Count 285 K/mcL (140-400); Red Blood Count 4.67 M/mcL (3.82-4.97); Red Cell Distribution Width 16.2 % (11.5-14.5)
[2017-12-21] MEDS: *HR* LORazepam 1 MG TABLET PO SCH ×2 (09:41→20:30)
[2017-12-21] MEDS: Methyl Salicylate/Menthol 28 GM TUBE TP SCH (09:43)
[2017-12-21] MEDS: (Roflumilast [Daliresp] 500 MCG) PO SCH (09:44)
[2017-12-21] MEDS: Budesonide/Formoterol 160/4.5 MDI IH SCH ×2 (10:26→21:32)
--- NOTE | 2017-12-21 17:23 | Internal Med Progress Note ---
Date of Encounter: 12/21/17 Time of Encounter: 17:15 - Assessment and plan (1) Traumatic ecchymosis of lower back Current Visit: Yes Status: Acute Assessment and plan: December 20. Continue topical and oral analgesics. INR has decreased to 1.2 so Coumadin will be restarted but at lower dose. December 21. Will add a second treatment of BenGay/Lidoderm to ecchymotic area on back. Qualifiers: Encounter type: initial encounter Qualified Code(s): S30.0XXA - Contusion of lower back and pelvis, initial encounter (2) Atrial fibrillation with rapid ventricular response Current Visit: No Status: Acute Assessment and plan: December 20. Resume Coumadin at lower dose. (3) Hematuria Current Visit: Yes Status: Acute Assessment and plan: December 20. Observe Qualifiers: Hematuria type: unspecified type Qualified Code(s): R31.9 - Hematuria, unspecified (4) Anxiety Current Visit: No Status: Chronic Assessment and plan: December 20. Continue Ativan (5) Weakness Current Visit: No Status: Acute Assessment and plan: December 20. Continue therapy intervention (6) Constipation Current Visit: Yes Status: Acute Assessment and plan: December 20. Will start MiraLAX and MOM. Qualifiers: Constipation type: unspecified constipation type Qualified Code(s): K59.00 - Constipation, unspecified - Subjective Interval history: December 20. She has no new complaints except constipation. Her back pain has not improved. December 21. She has no new complaints. - Constitutional Vitals: Temp Pulse Resp BP Pulse Ox 98.1 F 72 17 110/65 97 12/21/17 14:00 12/21/17 14:00 12/21/17 14:00 12/21/17 14:00 12/21/17 14:00 Exam: The ecchymosis of her right posterior flank is unchanged. She is wearing a Lidoderm patch in midline spine area. I reviewed her medications and lab results. Internal Medicine: Result - Labs CBC & Chem 7: 12/21/17 06:56 12/19/17 05:17 Labs: Short CBC 12/21/17 Range/Units 06:56 WBC 12.8 H (4.3-11.1) K/mcL Hgb 12.8 (11.5-15.4) g/dL Hct 43.4 (35.3-44.9) % Plt Count 285 (140-400) K/mcL Neutrophils # 9.7 H (1.6-8.9) K/mcL - ABG Interpretation ABG results: PT/INR, D-dimer PT 13.9 Seconds (9.4-12.1) H D 12/20/17 04:36 - VTE Reasons for not Prescribing Prophylaxis: Not indicated-Anticoagulated or INR therapeutic Consult Discharge Plan - Plan Referrals: Kit Stern MD [Primary Care Provider] -
[2017-12-21] MEDS: *HR* Warfarin 5 MG TABLET PO SCH (18:13)
[2017-12-21] MEDS: Albuterol 2.5 MG/3 ML NEBULIZER IH PRN (18:34)
[2017-12-21] MEDS: Ondansetron ODT 4 MG TAB.RAPDIS SL PRN (20:30)
[2017-12-21] MEDS: Melatonin 3 MG TABLET PO PRN (21:47)
[2017-12-21] MEDS: Acetaminophen 325 MG TABLET PO PRN (22:34)
[2017-12-22] MEDS: *HR* HYDROcodone/Acet 10/325 mg TABLET PO PRN ×3 (02:09→18:48)
[2017-12-22] MEDS: *HR* LORazepam 1 MG TABLET PO SCH ×2 (08:23→22:31)
[2017-12-22] MEDS: Methyl Salicylate/Menthol 28 GM TUBE TP SCH (08:25)
[2017-12-22] MEDS: (Roflumilast [Daliresp] 500 MCG) PO SCH (08:25)
[2017-12-22] MEDS: MOM Conc 10 ML UD.LIQ PO SCH ×2 (08:39→11:45)
[2017-12-22] MEDS: Budesonide/Formoterol 160/4.5 MDI IH SCH ×2 (10:38→22:55)
--- NOTE | 2017-12-22 11:23 | Internal Med Progress Note ---
Date of Encounter: 12/22/17 Time of Encounter: 11:15 - Assessment and plan (1) Traumatic ecchymosis of lower back Current Visit: Yes Status: Acute Assessment and plan: December 20. Continue topical and oral analgesics. INR has decreased to 1.2 so Coumadin will be restarted but at lower dose. December 21. Will add a second treatment of BenGay/Lidoderm to ecchymotic area on back. December 22. We will increase Duragesic to 25 g per hour every 3 days. Qualifiers: Encounter type: initial encounter Qualified Code(s): S30.0XXA - Contusion of lower back and pelvis, initial encounter (2) Atrial fibrillation with rapid ventricular response Current Visit: No Status: Acute Assessment and plan: December 20. Resume Coumadin at lower dose. December 22. Recheck pro time in a.m. (3) Hematuria Current Visit: Yes Status: Acute Assessment and plan: December 20. Observe Qualifiers: Hematuria type: unspecified type Qualified Code(s): R31.9 - Hematuria, unspecified (4) Anxiety Current Visit: No Status: Chronic Assessment and plan: December 20. Continue Ativan (5) Weakness Current Visit: No Status: Acute Assessment and plan: December 20. Continue therapy intervention (6) Constipation Current Visit: Yes Status: Acute Assessment and plan: December 20. Will start MiraLAX and MOM. December 22. Will order magnesium citrate and increase MOM dose. Qualifiers: Constipation type: unspecified constipation type Qualified Code(s): K59.00 - Constipation, unspecified - Subjective Interval history: December 20. She has no new complaints except constipation. Her back pain has not improved. December 21. She has no new complaints. December 22. She reports significant pain persisting in her back area. She also reports not having a bowel movement for 5-7 days. - Constitutional Vitals: Temp Pulse Resp BP Pulse Ox 98.6 F 67 16 104/68 96 12/22/17 06:39 12/22/17 06:39 12/22/17 10:38 12/22/17 06:39 12/22/17 10:38 Exam: She is lying in bed and appears to be mild to moderate pain particularly on inspiration. I reviewed her medications and lab results. Internal Medicine: Result - Labs CBC & Chem 7: 12/21/17 06:56 12/19/17 05:17 - ABG Interpretation ABG results: PT/INR, D-dimer PT 13.9 Seconds (9.4-12.1) H D 12/20/17 04:36 - VTE Reasons for not Prescribing Prophylaxis: Not indicated-Anticoagulated or INR therapeutic Consult Discharge Plan - Plan Referrals: Kit Stern MD [Primary Care Provider] -
[2017-12-22] MEDS ORDERED: *HR* FentaNYL PATCH 25 MCG PATCH TD SCH (11:30)
[2017-12-22] MEDS: Acetaminophen 325 MG TABLET PO PRN (11:45)
[2017-12-22] MEDS: Ondansetron ODT 4 MG TAB.RAPDIS SL PRN ×2 (12:50→22:30)
[2017-12-22] MEDS: *HR* Warfarin 5 MG TABLET PO SCH (17:10)
[2017-12-23] MEDS: Melatonin 3 MG TABLET PO PRN ×2 (01:17→20:52)
[2017-12-23] MEDS: *HR* HYDROcodone/Acet 10/325 mg TABLET PO PRN ×3 (04:06→18:35)
[2017-12-23 07:07] LABS: Basophils % 0.3 %; Eosinophils # 0.2 K/mcL (0.0-0.6); Eosinophils % 1.8 %; Hematocrit 45.5 % (35.3-44.9); Hemoglobin 13.5 g/dL (11.5-15.4); Immature Granulocytes % 0.8 % (0-4); Lymphocytes # 1.5 K/mcL (0.6-4.6); Lymphocytes % 12.9 %; Mean Corpuscular HGB Conc 29.7 g/dL (31.6-35.5); Mean Corpuscular Hemoglobin 27.4 pg (28.0-33.3); Mean Corpuscular Volume 92.3 fL (83.0-100.0); Mean Platelet Volume 9.2 fL (9.4-12.4); Monocytes % 8.1 %; Neutrophils # 9.1 K/mcL (1.6-8.9); Platelet Count 277 K/mcL (140-400); Red Blood Count 4.93 M/mcL (3.82-4.97); Red Cell Distribution Width 15.9 % (11.5-14.5); Segmented Neutrophils % 76.1 %
[2017-12-23 07:18] LABS: INR 1.4; Prothrombin Time 15.2 Seconds (9.4-12.1)
[2017-12-23] MEDS: *HR* LORazepam 1 MG TABLET PO SCH ×2 (08:06→20:52)
[2017-12-23] MEDS: (Roflumilast [Daliresp] 500 MCG) PO SCH (08:07)
[2017-12-23] MEDS: Methyl Salicylate/Menthol 28 GM TUBE TP SCH (08:10)
[2017-12-23] MEDS: Budesonide/Formoterol 160/4.5 MDI IH SCH ×2 (09:56→21:35)
[2017-12-23] MEDS: *HR* Warfarin 5 MG TABLET PO SCH (17:46)
[2017-12-23] MEDS: Acetaminophen 325 MG TABLET PO PRN (20:51)
[2017-12-24] MEDS: *HR* HYDROcodone/Acet 10/325 mg TABLET PO PRN ×2 (03:50→11:38)
[2017-12-24 07:32] VITALS: BP 113/65
[2017-12-24] MEDS: *HR* LORazepam 1 MG TABLET PO SCH (08:23)
[2017-12-24] MEDS: Methyl Salicylate/Menthol 28 GM TUBE TP SCH (08:24)
[2017-12-24] MEDS: (Roflumilast [Daliresp] 500 MCG) PO SCH (08:24)
[2017-12-24] MEDS: Budesonide/Formoterol 160/4.5 MDI IH SCH (10:20)
[2017-12-24] MEDS: MOM Conc 10 ML UD.LIQ PO SCH (11:38)
--- NOTE | 2017-12-24 12:22 | Discharge Summary ---
Date of Encounter: 12/24/17 Time of Encounter: 12:10 - Discharge Diagnosis (1) Traumatic ecchymosis of lower back Priority: Primary Status: Acute Qualifiers: Encounter type: initial encounter Qualified Code(s): S30.0XXA - Contusion of lower back and pelvis, initial encounter (2) Atrial fibrillation with rapid ventricular response Priority: Secondary Status: Acute (3) Hematuria Priority: Secondary Status: Acute Qualifiers: Hematuria type: unspecified type Qualified Code(s): R31.9 - Hematuria, unspecified (4) Anxiety Priority: Secondary Status: Chronic (5) Weakness Priority: Secondary Status: Acute (6) Constipation Priority: Secondary Status: Acute Qualifiers: Constipation type: unspecified constipation type Qualified Code(s): K59.00 - Constipation, unspecified Hospital course: Ms. Stern is a 62 year old female who came to emergency room stating she has had increasing pain since December 15 when she reached for something and heard/felt a "pop" in her left flank area followed by increasing pain. Her noted bruising in the left flank on December 17. She reports the pain became progressively worse so she came to emergency room on December 18. Ecchymosis overlying the left posterior lateral lower rib area was noted. She was admitted to [facility] floor for ongoing care needs. Initial orders were written by the emergency room physician. I saw her on December 19 and performed a history and physical. The ecchymosis on her left flank showed no expansion or worsening during her hospital stay. Its etiology was not determined with certainty. There was no reported trauma associated. She had minimal decrease in pain during hospitalization. Lidoderm and BenGay were use topically in addition to continuing her home dose of [place]. She was also given a Duragesic patch but developed some muscle jerking so the patch will not be continued on discharge to swing bed. Coumadin was held until INR returned to a satisfactory range. It was then restarted at a dose of 2.5 mg daily. PT/INR will be monitored during swing bed stay. She had physical therapy and occupational therapy evaluation with ongoing interventions. On December 24 word was received from insurance that she was approved to transfer to swing bed status for ongoing therapy needs. - Time Spent with Patient Total time spent providing and/or coordinating discharge services: - Discharge Medications Home Medications: Melatonin 3 mg PO HS PRN 01/23/15 [History] Montelukast [Singulair] 10 mg PO DAILY #30 tablet 02/14/15 [Rx] Roflumilast [Daliresp] 500 mcg PO DAILY 09/17/15 [History] Budesonide/Formoterol 160/4.5 [Symbicort 160/4.5] 2 puff IH BID 03/20/16 [ History] Multivitamin [Multi-Day Vitamins] 1 tab PO DAILY 03/26/16 [History] Albuterol Sulfate [Albuterol Inhaler] 2 aerosol PO Q4HR PRN 08/28/16 [History] Reglan 5 mg PO TID 08/28/16 [History] Cyclobenzaprine [Flexeril] 5 mg PO TID PRN #0 11/01/16 [Rx] HYDROcodone/Acet 10/325 mg [[place] 10-325 mg] 1 tab PO Q6HR PRN #240 tablet 11/01 [Rx] Ondansetron ODT [Zofran ODT] 4 mg SL Q6HR PRN #0 tab.rapdis 11/01/16 [Rx] Ondansetron HCl [Zofran] 4 mg PO Q6HR PRN #8 tablet 10/31/17 [Rx] Acetaminophen [Tylenol] 650 mg PO Q6HR PRN tablet 12/24/17 [Rx] Albuterol Neb [Proventil Neb] 2.5 mg IH Q2H PRN inhsol 12/24/17 [Rx] LORazepam [Ativan] 2 mg PO BID 3 Days #10 tablet 12/24/17 [Rx] Lidocaine Patch [Lidoderm 5% patch] 2 each TP DAILY adh..patch 12/24/17 [Rx] MOM Conc [MILK OF MAGNESIA conc] 15 ml PO Q48H ud.liq 12/24/17 [Rx] Methyl Salicylate/Menthol [Bengay] 1 appl TP DAILY tube 12/24/17 [Rx] Omeprazole [PriLOSEC] 20 mg PO QAM@0730 capsule. 12/24/17 [Rx] Polyethylene Glycol 3350 [MiraLAX] 17 gm PO DAILY powd.pack 12/24/17 [Rx] Warfarin [Coumadin] 2.5 mg PO DAILY@1800 tablet 12/24/17 [Rx] predniSONE [PredniSONE] 5 mg PO DAILY #0 12/24/17 [Rx] Allergies/Adverse Reactions: 3 Allergy/AdvReac Type Severity Reaction Status Date / Time methyl salicylate Allergy See Verified 12/18/17 16:27 Comments metronidazole [From Flagyl] Allergy Hives Verified 12/18/17 16:27 orange juice [[place] Juice] Allergy Swelling Verified 12/18/17 16:27 of Lip/Tongue/Throat sertraline [From Zoloft] Allergy Agitated Verified 12/18/17 16:27 vancomycin Allergy Vomiting Verified 12/18/17 16:27 fidaxomicin [From Dificid] AdvReac Vomiting Verified 12/18/17 16:27 ketorolac [From Toradol] AdvReac Vomiting Verified 12/18/17 16:27 menthol AdvReac Difficulty Verified 12/18/17 16:27 Breathing meperidine [From Demerol] AdvReac Vomiting Verified 12/18/17 16:27 ropinirole [From Requip] AdvReac Vomiting Verified 12/18/17 16:27 simvastatin AdvReac Muscle Pain Verified 12/18/17 16:27 tramadol AdvReac Vomiting Verified 12/18/17 16:27 zolmitriptan AdvReac Agitated Verified 12/18/17 16:27 Date of admission: 12/18/17 19:21 Primary care physician: Kit Stern MD Consults: 12/19/17 11:15 Consult to Occupational Therapy [CONS] Routine Comment: Evaluate, develop and implement POC Reason for Consult: Weakness Does patient have active BEDREST order?: No Is patient medically & hemodynamically stable?: Yes Patient assessed for mobility or mobilized this visit?: Yes Consult to Physical Therapy [CONS] Routine Comment: Evaluate, develop and implement POC Reason for Consult: Weakness Does patient have active BEDREST order?: No Is patient medically & hemodynamically stable?: Yes Patient assessed for mobility or mobilized this visit?: Yes - Constitutional Vitals: Temp Pulse Resp BP Pulse Ox 97.8 F 59 18 113/65 96 12/24/17 07:30 12/24/17 07:30 12/24/17 10:20 12/24/17 07:30 12/24/17 10:20 - Patient Status Disposition: Transfer Hospital Swing Bed Condition: Fair - Discharge Instructions Follow Up With: Kit Stern MD [Primary Care Provider] - - Diet and Activity Activity: as per physical therapy Diet: other (Cardiac diet) - VTE Reasons for not Prescribing Prophylaxis: Not indicated-Anticoagulated or INR therapeutic
[2017-12-25] MEDS ORDERED: *HR* FentaNYL PATCH 25 MCG PATCH TD SCH (09:00)
== END 2017-12-24 13:23 | disposition other institution (70) ==
LOC: INPPIK 16:24 → EMEROOPIK 16:24 → INPPIK 19:54
PROVIDERS: ADMIT Internal Medicine; ATTEND Internal Medicine

== ENCOUNTER 2017-12-24 13:35 | Inpatient (IN) ==
[2017-12-24] MEDS: *HR* HYDROcodone/Acet 10/325 mg TABLET PO PRN (16:36)
[2017-12-24] MEDS: Albuterol 2.5 MG/3 ML NEBULIZER IH PRN ×2 (16:51→21:17)
[2017-12-24] MEDS: *HR* Warfarin 5 MG TABLET PO SCH (17:11)
[2017-12-24] MEDS: *HR* LORazepam 1 MG TABLET PO SCH (20:04)
[2017-12-24] MEDS: Melatonin 3 MG TABLET PO PRN (20:05)
[2017-12-24] MEDS: Budesonide/Formoterol 160/4.5 MDI IH SCH (21:18)
[2017-12-25] MEDS: Acetaminophen 325 MG TABLET PO PRN (04:19)
[2017-12-25 06:48] LABS: Basophils % 0.3 %; Eosinophils # 0.3 K/mcL (0.0-0.6); Eosinophils % 2.9 %; Hematocrit 42.6 % (35.3-44.9); Hemoglobin 12.6 g/dL (11.5-15.4); Lymphocytes # 1.7 K/mcL (0.6-4.6); Lymphocytes % 16.6 %; Mean Corpuscular HGB Conc 29.6 g/dL (31.6-35.5); Mean Corpuscular Hemoglobin 27.2 pg (28.0-33.3); Mean Corpuscular Volume 91.8 fL (83.0-100.0); Mean Platelet Volume 9.8 fL (9.4-12.4); Monocytes # 0.9 K/mcL (0.0-1.3); Monocytes % 9.2 %; Platelet Count 260 K/mcL (140-400); Red Blood Count 4.64 M/mcL (3.82-4.97); Red Cell Distribution Width 15.9 % (11.5-14.5)
[2017-12-25 07:00] LABS: BUN/Creatinine Ratio 21 (6-26); Blood Urea Nitrogen 14 mg/dL (8-23); Calcium 9.8 mg/dL (8.6-10.3); Carbon Dioxide 38 mEq/L (23-29); Chloride 95 mEq/L (98-107); Glucose 97 mg/dL (70-105); Osmolality,Calculated 290 (280-300); Potassium 3.7 mEq/L (3.5-5.1); Sodium 140 mEq/L (136-145); eGFR For African Americans > 60 (> 60); eGFR For Non-African Americans > 60 (> 60)
[2017-12-25 07:03] LABS: Activated Partial Thrombo Time 33.9 Seconds (26.0-36.0); INR 1.8; Prothrombin Time 20.8 Seconds (9.4-12.1)
[2017-12-25 08:14] LABS: Bilirubin,Urine Small (Negative); Blood,Urine Small (Negative); Color,Urine Yellow (Yellow); Glucose,Urine (UA) Normal (Normal); Ketones,Urine 15 mg/dL (Negative); Leukocyte Esterase,Urine Small (Negative); Nitrite,Urine Negative (Negative); Protein,Urine Trace mg/dL (Neg-Trace); Urobilinogen,Urine Normal (Normal)
[2017-12-25] MEDS: Ondansetron ODT 4 MG TAB.RAPDIS SL PRN (08:18)
[2017-12-25] MEDS: Multivit/Ca/Min/Fe/FA 1 TAB TABLET PO SCH (08:22)
[2017-12-25] MEDS: *HR* HYDROcodone/Acet 10/325 mg TABLET PO PRN ×4 (08:22→20:54)
[2017-12-25] MEDS: *HR* LORazepam 1 MG TABLET PO SCH ×2 (08:22→20:54)
[2017-12-25] MEDS: DALIRESP 500MCG PO SCH (08:23)
[2017-12-25] MEDS: predniSONE 5 MG TABLET PO SCH (08:23)
[2017-12-25] MEDS: Methyl Salicylate/Menthol 28 GM TUBE TP SCH (08:24)
[2017-12-25 09:11] LABS: Clarity,Urine Cloudy (Clear)
[2017-12-25 09:14] LABS: Bacteria,Urine Many per hpf (None-Few); Squamous Epithelial Cell,Urine Few per lpf (None-Few)
[2017-12-25] MEDS: Budesonide/Formoterol 160/4.5 MDI IH SCH ×2 (10:44→21:47)
[2017-12-25] MEDS: Albuterol 2.5 MG/3 ML NEBULIZER IH PRN ×3 (10:44→21:47)
--- NOTE | 2017-12-25 15:36 | Internal Med Progress Note ---
Date of Encounter: 12/25/17 Time of Encounter: 15:30 - Assessment and plan (1) Traumatic ecchymosis of lower back Current Visit: No Status: Acute Assessment and plan: December 25. Nontraumatic. Etiology uncertain. Continue BenGay and Duragesic. Will repeat CT scan Qualifiers: Encounter type: initial encounter Qualified Code(s): S30.0XXA - Contusion of lower back and pelvis, initial encounter (2) Atrial fibrillation with rapid ventricular response Current Visit: No Status: Acute Assessment and plan: December 25. Rate now controlled without medication. Continue Coumadin (3) Anxiety Current Visit: No Status: Chronic Assessment and plan: December 20. Continue lorazepam (4) Weakness Current Visit: No Status: Acute Assessment and plan: December 20. Continue therapy intervention. (5) Hematuria Current Visit: No Status: Acute Assessment and plan: December 25. Present intermittently since 2013. Will monitor. Qualifiers: Hematuria type: unspecified type Qualified Code(s): R31.9 - Hematuria, unspecified - Subjective Interval history: December 25. She was hospitalized in acute-care December 18- after presenting with left flank pain. She had left flank ecchymoses noted but claimed no trauma associated. The etiology was not determined with certainty. She was treated symptomatically with Lidoderm and BenGay as well as oral and topical narcotics. She developed truncal muscle jerking so Duragesic was discontinued on the day of discharge to swing bed. Coumadin was held until INR returned to satisfactory range and then restarted at lower dose. She had physical therapy and occupational therapy evaluation with ongoing interventions. It was felt she would benefit for ongoing therapy in swing bed and approval was received from insurance for this on December 24. She has no new complaints today. She states her pain is essentially unchanged. She thinks the muscle jerking may be slightly lessened. - Constitutional Vitals: Temp Pulse Resp BP Pulse Ox 97.8 F 61 18 105/67 96 12/25/17 06:00 12/25/17 08:26 12/25/17 14:22 12/25/17 06:00 12/25/17 14:22 Exam: She is resting comfortably in bed but has significant pain on rolling onto her right side for me to view the left flank area. Ecchymosis has almost completely resolved. Lidoderm patches are in place. I reviewed her medications and lab results. Internal Medicine: Result - Labs CBC & Chem 7: 12/25/17 06:19 12/25/17 06:19 Labs: Short CBC 12/25/17 Range/Units 06:19 WBC 10.0 (4.3-11.1) K/mcL Hgb 12.6 (11.5-15.4) g/dL Hct 42.6 (35.3-44.9) % Plt Count 260 (140-400) K/mcL Neutrophils # 7.0 (1.6-8.9) K/mcL BMP 12/25/17 06:19 Sodium 140 Potassium 3.7 Chloride 95 L Carbon Dioxide 38 H BUN 14 Creatinine 0.68 Glucose 97 Calcium 9.8 Urine 12/24/17 Range/Units 08:00 Urine Color Yellow (Yellow) Urine Clarity Cloudy A (Clear) Urine pH 7.0 (5.0-8.0) pH Units Ur Specific [place] 1.020 (1.010-1.025) Urine Protein Trace (Neg-Trace) mg/dL Urine Glucose (UA) Normal (Normal) mg/dL - ABG Interpretation ABG results: PT/INR, D-dimer PT 20.8 Seconds (9.4-12.1) H 12/25/17 06:19 Consult Discharge Plan - Plan Referrals: Kit Stern MD [Primary Care Provider] - 1 week
[2017-12-25] MEDS: *HR* Warfarin 5 MG TABLET PO SCH (17:32)
[2017-12-25] MEDS: Melatonin 3 MG TABLET PO PRN (20:54)
[2017-12-26] MEDS: *HR* HYDROcodone/Acet 10/325 mg TABLET PO PRN ×3 (04:40→17:05)
[2017-12-26] MEDS: predniSONE 5 MG TABLET PO SCH (07:44)
[2017-12-26] MEDS: *HR* LORazepam 1 MG TABLET PO SCH ×2 (07:45→21:39)
[2017-12-26] MEDS: Multivit/Ca/Min/Fe/FA 1 TAB TABLET PO SCH (07:46)
[2017-12-26] MEDS: MOM Conc 10 ML UD.LIQ PO SCH (07:47)
[2017-12-26] MEDS: Methyl Salicylate/Menthol 28 GM TUBE TP SCH (07:47)
[2017-12-26] MEDS: DALIRESP 500MCG PO SCH (07:50)
[2017-12-26] MEDS: Ondansetron ODT 4 MG TAB.RAPDIS SL PRN (07:52)
[2017-12-26] MEDS: Budesonide/Formoterol 160/4.5 MDI IH SCH ×2 (09:38→22:32)
--- NOTE | 2017-12-26 14:29 | Internal Med Progress Note ---
Date of Encounter: 12/26/17 Time of Encounter: 14:20 - Assessment and plan (1) Traumatic ecchymosis of lower back Current Visit: No Status: Acute Assessment and plan: December 25. Nontraumatic. Etiology uncertain. Continue BenGay and Duragesic. Will repeat CT scan December 26. CT scan showed large amount of stool in colon proximal to ostomy site. She will have saline irrigations through ostomy for removal Qualifiers: Encounter type: initial encounter Qualified Code(s): S30.0XXA - Contusion of lower back and pelvis, initial encounter (2) Atrial fibrillation with rapid ventricular response Current Visit: No Status: Acute Assessment and plan: December 25. Rate now controlled without medication. Continue Coumadin (3) Anxiety Current Visit: No Status: Chronic Assessment and plan: December 20. Continue lorazepam (4) Weakness Current Visit: No Status: Acute Assessment and plan: December 20. Continue therapy intervention. (5) Hematuria Current Visit: No Status: Acute Assessment and plan: December 25. Present intermittently since 2013. Will monitor. Qualifiers: Hematuria type: unspecified type Qualified Code(s): R31.9 - Hematuria, unspecified - Subjective Interval history: December 25. She was hospitalized in acute-care December 18- after presenting with left flank pain. She had left flank ecchymoses noted but claimed no trauma associated. The etiology was not determined with certainty. She was treated symptomatically with Lidoderm and BenGay as well as oral and topical narcotics. She developed truncal muscle jerking so Duragesic was discontinued on the day of discharge to swing bed. Coumadin was held until INR returned to satisfactory range and then restarted at lower dose. She had physical therapy and occupational therapy evaluation with ongoing interventions. It was felt she would benefit for ongoing therapy in swing bed and approval was received from insurance for this on December 24. She has no new complaints today. She states her pain is essentially unchanged. She thinks the muscle jerking may be slightly lessened. December 26. She has no new complaints. She states her pain has not changed since yesterday. - Constitutional Vitals: Temp Pulse Resp BP Pulse Ox 97.5 F L 59 16 123/76 93 12/26/17 07:53 12/26/17 07:53 12/26/17 09:40 12/26/17 07:53 12/26/17 14:13 Exam: She is resting in bed and appears in no acute distress. Her torso jerking appears to be lessened. Her affect is overall cheerful. I reviewed her medications and lab results. Internal Medicine: Result - Labs CBC & Chem 7: 12/25/17 06:19 12/25/17 06:19 - ABG Interpretation ABG results: PT/INR, D-dimer PT 20.8 Seconds (9.4-12.1) H 12/25/17 06:19 - Impressions Impressions Abdomen/Pelvis CT 12/25/17 15:46 IMPRESSION: There is a very large amount of stool within the colon. Correlate with clinical evidence of constipation. A very distal obstruction would be considered. Otherwise, no acute abnormality is detected. Redemonstration of an age-indeterminate mild compression fracture involving the T11 superior endplate. D/ / 12/25/2017 17:13:45 Tyrel Pierre MD / bety Interpreting Provider: Tyrel Pierre MD Consult Discharge Plan - Plan Referrals: Kit Stern MD [Primary Care Provider] - 1 week
[2017-12-26] MEDS: *HR* Warfarin 5 MG TABLET PO SCH (17:04)
[2017-12-27] MEDS: *HR* HYDROcodone/Acet 10/325 mg TABLET PO PRN ×3 (06:39→19:25)
[2017-12-27] MEDS: Multivit/Ca/Min/Fe/FA 1 TAB TABLET PO SCH (09:27)
[2017-12-27] MEDS: *HR* LORazepam 1 MG TABLET PO SCH ×2 (09:27→20:45)
[2017-12-27] MEDS: predniSONE 5 MG TABLET PO SCH (09:28)
[2017-12-27] MEDS: DALIRESP 500MCG PO SCH (09:28)
[2017-12-27] MEDS: Methyl Salicylate/Menthol 28 GM TUBE TP SCH (09:28)
[2017-12-27] MEDS: Albuterol 2.5 MG/3 ML NEBULIZER IH PRN (09:45)
[2017-12-27] MEDS: Budesonide/Formoterol 160/4.5 MDI IH SCH ×2 (09:46→21:26)
[2017-12-27] MEDS: *HR* Warfarin 5 MG TABLET PO SCH (19:26)
[2017-12-28] MEDS: *HR* HYDROcodone/Acet 10/325 mg TABLET PO PRN ×3 (05:58→18:11)
[2017-12-28 06:43] LABS: INR 2.2; Prothrombin Time 24.7 Seconds (9.4-12.1)
[2017-12-28] MEDS: Methyl Salicylate/Menthol 28 GM TUBE TP SCH (07:58)
[2017-12-28] MEDS: DALIRESP 500MCG PO SCH (08:00)
[2017-12-28] MEDS: predniSONE 5 MG TABLET PO SCH (08:00)
[2017-12-28] MEDS: Multivit/Ca/Min/Fe/FA 1 TAB TABLET PO SCH (08:00)
[2017-12-28] MEDS: MOM Conc 10 ML UD.LIQ PO SCH (08:00)
[2017-12-28] MEDS: *HR* LORazepam 1 MG TABLET PO SCH ×2 (08:00→21:02)
[2017-12-28] MEDS: Ondansetron ODT 4 MG TAB.RAPDIS SL PRN (08:14)
[2017-12-28] MEDS: Acetaminophen 325 MG TABLET PO PRN ×2 (08:14→17:04)
[2017-12-28] MEDS: Albuterol 2.5 MG/3 ML NEBULIZER IH PRN (09:21)
[2017-12-28] MEDS: Budesonide/Formoterol 160/4.5 MDI IH SCH ×2 (09:22→22:03)
[2017-12-28] MEDS: *HR* Warfarin 5 MG TABLET PO SCH (17:03)
[2017-12-28] MEDS: Ondansetron ODT 4 MG TAB.RAPDIS PO PRN (17:04)
[2017-12-29] MEDS: Ondansetron ODT 4 MG TAB.RAPDIS SL PRN (08:57)
[2017-12-29] MEDS: Multivit/Ca/Min/Fe/FA 1 TAB TABLET PO SCH (08:58)
[2017-12-29] MEDS: *HR* HYDROcodone/Acet 10/325 mg TABLET PO PRN ×3 (08:58→21:29)
[2017-12-29] MEDS: *HR* LORazepam 1 MG TABLET PO SCH ×2 (08:58→20:29)
[2017-12-29] MEDS: predniSONE 5 MG TABLET PO SCH (08:59)
[2017-12-29] MEDS: Methyl Salicylate/Menthol 28 GM TUBE TP SCH (08:59)
[2017-12-29] MEDS: DALIRESP 500MCG PO SCH (08:59)
[2017-12-29] MEDS: Budesonide/Formoterol 160/4.5 MDI IH SCH ×2 (10:34→21:09)
[2017-12-29] MEDS: Albuterol 2.5 MG/3 ML NEBULIZER IH PRN (14:44)
--- NOTE | 2017-12-29 14:55 | Internal Med Progress Note ---
Date of Encounter: 12/29/17 Time of Encounter: 14:45 - Assessment and plan (1) Traumatic ecchymosis of lower back Current Visit: No Status: Acute Assessment and plan: December 25. Nontraumatic. Etiology uncertain. Continue BenGay and Duragesic. Will repeat CT scan December 26. CT scan showed large amount of stool in colon proximal to ostomy site. She will have saline irrigations through ostomy for removal Qualifiers: Encounter type: initial encounter Qualified Code(s): S30.0XXA - Contusion of lower back and pelvis, initial encounter (2) Atrial fibrillation with rapid ventricular response Current Visit: No Status: Acute Assessment and plan: December 25. Rate now controlled without medication. Continue Coumadin (3) Anxiety Current Visit: No Status: Chronic Assessment and plan: December 20. Continue lorazepam (4) Weakness Current Visit: No Status: Acute Assessment and plan: December 20. Continue therapy intervention. (5) Hematuria Current Visit: No Status: Acute Assessment and plan: December 25. Present intermittently since 2013. Will monitor. Qualifiers: Hematuria type: unspecified type Qualified Code(s): R31.9 - Hematuria, unspecified - Subjective Interval history: December 25. She was hospitalized in acute-care December 18- after presenting with left flank pain. She had left flank ecchymoses noted but claimed no trauma associated. The etiology was not determined with certainty. She was treated symptomatically with Lidoderm and BenGay as well as oral and topical narcotics. She developed truncal muscle jerking so Duragesic was discontinued on the day of discharge to swing bed. Coumadin was held until INR returned to satisfactory range and then restarted at lower dose. She had physical therapy and occupational therapy evaluation with ongoing interventions. It was felt she would benefit for ongoing therapy in swing bed and approval was received from insurance for this on December 24. She has no new complaints today. She states her pain is essentially unchanged. She thinks the muscle jerking may be slightly lessened. December 26. She has no new complaints. She states her pain has not changed since yesterday. December 29. She has no new complaints. She states her ostomy output has normalized. She is still having pain in her back. - Constitutional Vitals: Temp Pulse Resp BP Pulse Ox 97.6 F 59 18 98/64 93 12/29/17 07:01 12/29/17 07:01 12/29/17 14:47 12/29/17 07:01 12/29/17 14:47 Exam: She is resting comfortably in bed and appears in no acute distress. Her affect is overall cheerful. I reviewed her medications and lab results. Internal Medicine: Result - Labs CBC & Chem 7: 12/25/17 06:19 12/25/17 06:19 - ABG Interpretation ABG results: PT/INR, D-dimer PT 24.7 Seconds (9.4-12.1) H 12/28/17 05:44 Consult Discharge Plan - Plan Referrals: Kit Stern MD [Primary Care Provider] - 1 week
[2017-12-29] MEDS: Acetaminophen 325 MG TABLET PO PRN (17:09)
[2017-12-29] MEDS: Ondansetron ODT 4 MG TAB.RAPDIS PO PRN (17:10)
[2017-12-29] MEDS: *HR* Warfarin 5 MG TABLET PO SCH (17:10)
[2017-12-29] MEDS: Melatonin 3 MG TABLET PO PRN (20:29)
[2017-12-30] MEDS: *HR* HYDROcodone/Acet 10/325 mg TABLET PO PRN ×3 (05:19→17:52)
[2017-12-30 07:10] LABS: Basophils % 0.2 %; Eosinophils # 0.2 K/mcL (0.0-0.6); Eosinophils % 2.4 %; Hematocrit 39.2 % (35.3-44.9); Hemoglobin 11.7 g/dL (11.5-15.4); Immature Granulocytes % 0.7 % (0-4); Lymphocytes # 1.6 K/mcL (0.6-4.6); Lymphocytes % 18.4 %; Mean Corpuscular HGB Conc 29.8 g/dL (31.6-35.5); Mean Corpuscular Hemoglobin 27.5 pg (28.0-33.3); Mean Platelet Volume 9.5 fL (9.4-12.4); Monocytes # 0.7 K/mcL (0.0-1.3); Monocytes % 7.8 %; Neutrophils # 6.2 K/mcL (1.6-8.9); Platelet Count 233 K/mcL (140-400); Red Blood Count 4.26 M/mcL (3.82-4.97); Red Cell Distribution Width 15.7 % (11.5-14.5); Segmented Neutrophils % 70.5 %
[2017-12-30 07:30] LABS: BUN/Creatinine Ratio 21 (6-26); Blood Urea Nitrogen 13 mg/dL (8-23); Calcium 9.4 mg/dL (8.6-10.3); Carbon Dioxide 36 mEq/L (23-29); Chloride 100 mEq/L (98-107); Glucose 89 mg/dL (70-105); Osmolality,Calculated 292 (280-300); Potassium 3.7 mEq/L (3.5-5.1); Sodium 141 mEq/L (136-145); eGFR For African Americans > 60 (> 60); eGFR For Non-African Americans > 60 (> 60)
[2017-12-30 07:39] LABS: INR 2.3; Prothrombin Time 26.4 Seconds (9.4-12.1)
[2017-12-30] MEDS: Methyl Salicylate/Menthol 28 GM TUBE TP SCH (07:48)
[2017-12-30] MEDS: Ondansetron ODT 4 MG TAB.RAPDIS SL PRN ×2 (07:49→17:56)
[2017-12-30] MEDS: MOM Conc 10 ML UD.LIQ PO SCH (07:49)
[2017-12-30] MEDS: Multivit/Ca/Min/Fe/FA 1 TAB TABLET PO SCH (07:50)
[2017-12-30] MEDS: *HR* LORazepam 1 MG TABLET PO SCH ×2 (07:50→20:08)
[2017-12-30] MEDS: DALIRESP 500MCG PO SCH (07:50)
[2017-12-30] MEDS: Budesonide/Formoterol 160/4.5 MDI IH SCH ×2 (08:22→22:41)
[2017-12-30] MEDS: Albuterol 2.5 MG/3 ML NEBULIZER IH PRN ×2 (17:16→22:46)
[2017-12-30] MEDS: *HR* Warfarin 5 MG TABLET PO SCH (17:53)
[2017-12-30] MEDS: Melatonin 3 MG TABLET PO PRN (20:08)
[2017-12-31] MEDS: *HR* HYDROcodone/Acet 10/325 mg TABLET PO PRN ×3 (01:49→15:18)
[2017-12-31] MEDS: Ondansetron ODT 4 MG TAB.RAPDIS SL PRN ×2 (07:57→17:25)
[2017-12-31] MEDS: *HR* LORazepam 1 MG TABLET PO SCH ×2 (08:00→20:41)
[2017-12-31] MEDS: Multivit/Ca/Min/Fe/FA 1 TAB TABLET PO SCH (08:01)
[2017-12-31] MEDS: Methyl Salicylate/Menthol 28 GM TUBE TP SCH (08:04)
[2017-12-31] MEDS: DALIRESP 500MCG PO SCH (08:05)
[2017-12-31] MEDS: Budesonide/Formoterol 160/4.5 MDI IH SCH ×2 (10:08→22:28)
--- NOTE | 2017-12-31 10:31 | Internal Med Progress Note ---
Date of Encounter: 12/31/17 Time of Encounter: 10:20 - Assessment and plan (1) Traumatic ecchymosis of lower back Current Visit: No Status: Acute Assessment and plan: December 25. Nontraumatic. Etiology uncertain. Continue BenGay and Duragesic. Will repeat CT scan December 26. CT scan showed large amount of stool in colon proximal to ostomy site. She will have saline irrigations through ostomy for removal December 31. Pain improved. Continue present management. Qualifiers: Encounter type: initial encounter Qualified Code(s): S30.0XXA - Contusion of lower back and pelvis, initial encounter (2) Atrial fibrillation with rapid ventricular response Current Visit: No Status: Acute Assessment and plan: December 25. Rate now controlled without medication. Continue Coumadin (3) Anxiety Current Visit: No Status: Chronic Assessment and plan: December 20. Continue lorazepam (4) Weakness Current Visit: No Status: Acute Assessment and plan: December 20. Continue therapy intervention. (5) Hematuria Current Visit: No Status: Acute Assessment and plan: December 25. Present intermittently since 2013. Will monitor. Qualifiers: Hematuria type: unspecified type Qualified Code(s): R31.9 - Hematuria, unspecified - Subjective Interval history: December 25. She was hospitalized in acute-care December 18- after presenting with left flank pain. She had left flank ecchymoses noted but claimed no trauma associated. The etiology was not determined with certainty. She was treated symptomatically with Lidoderm and BenGay as well as oral and topical narcotics. She developed truncal muscle jerking so Duragesic was discontinued on the day of discharge to swing bed. Coumadin was held until INR returned to satisfactory range and then restarted at lower dose. She had physical therapy and occupational therapy evaluation with ongoing interventions. It was felt she would benefit for ongoing therapy in swing bed and approval was received from insurance for this on December 24. She has no new complaints today. She states her pain is essentially unchanged. She thinks the muscle jerking may be slightly lessened. December 26. She has no new complaints. She states her pain has not changed since yesterday. December 29. She has no new complaints. She states her ostomy output has normalized. She is still having pain in her back. December 31. She has no new complaints. Feels better overall. - Constitutional Vitals: Temp Pulse Resp BP Pulse Ox 98.0 F 60 16 107/62 97 12/31/17 07:00 12/31/17 07:00 12/31/17 10:09 12/30/17 19:43 12/31/17 10:09 Exam: She is resting comfortably in bed and appears in less pain than previous visits. Her affect is overall cheerful. I reviewed her medications and lab results. Internal Medicine: Result - Labs CBC & Chem 7: 12/30/17 06:35 12/30/17 06:35 - ABG Interpretation ABG results: PT/INR, D-dimer PT 26.4 Seconds (9.4-12.1) H 12/30/17 06:35 Consult Discharge Plan - Plan Referrals: Kit Stern MD [Primary Care Provider] - 1 week
[2017-12-31] MEDS: Albuterol 2.5 MG/3 ML NEBULIZER IH PRN ×2 (15:16→22:28)
[2017-12-31] MEDS: *HR* Warfarin 5 MG TABLET PO SCH (17:25)
[2017-12-31] MEDS: Melatonin 3 MG TABLET PO PRN (22:29)
[2018-01-01] MEDS: *HR* HYDROcodone/Acet 10/325 mg TABLET PO PRN ×4 (01:46→21:52)
[2018-01-01] MEDS: MOM Conc 10 ML UD.LIQ PO SCH (08:15)
[2018-01-01] MEDS: Multivit/Ca/Min/Fe/FA 1 TAB TABLET PO SCH (08:16)
[2018-01-01] MEDS: *HR* LORazepam 1 MG TABLET PO SCH ×2 (08:17→21:52)
[2018-01-01] MEDS: DALIRESP 500MCG PO SCH (08:18)
[2018-01-01] MEDS: Methyl Salicylate/Menthol 28 GM TUBE TP SCH (08:18)
[2018-01-01] MEDS: Albuterol 2.5 MG/3 ML NEBULIZER IH PRN (08:27)
[2018-01-01] MEDS: Budesonide/Formoterol 160/4.5 MDI IH SCH ×2 (08:29→22:11)
--- NOTE | 2018-01-01 15:49 | Internal Med Progress Note ---
Date of Encounter: 01/01/18 Time of Encounter: 15:40 - Assessment and plan (1) Traumatic ecchymosis of lower back Current Visit: No Status: Acute Assessment and plan: December 25. Nontraumatic. Etiology uncertain. Continue BenGay and Duragesic. Will repeat CT scan December 26. CT scan showed large amount of stool in colon proximal to ostomy site. She will have saline irrigations through ostomy for removal December 31. Pain improved. Continue present management. January 01. Anticipate discharge home January 03. Qualifiers: Encounter type: initial encounter Qualified Code(s): S30.0XXA - Contusion of lower back and pelvis, initial encounter (2) Atrial fibrillation with rapid ventricular response Current Visit: No Status: Acute Assessment and plan: December 25. Rate now controlled without medication. Continue Coumadin (3) Anxiety Current Visit: No Status: Chronic Assessment and plan: December 20. Continue lorazepam (4) Weakness Current Visit: No Status: Acute Assessment and plan: December 20. Continue therapy intervention. January 01. Anticipate discharge home January 03. (5) Hematuria Current Visit: No Status: Acute Assessment and plan: December 25. Present intermittently since 2013. Will monitor. Qualifiers: Hematuria type: unspecified type Qualified Code(s): R31.9 - Hematuria, unspecified - Subjective Interval history: December 25. She was hospitalized in acute-care December 18- after presenting with left flank pain. She had left flank ecchymoses noted but claimed no trauma associated. The etiology was not determined with certainty. She was treated symptomatically with Lidoderm and BenGay as well as oral and topical narcotics. She developed truncal muscle jerking so Duragesic was discontinued on the day of discharge to swing bed. Coumadin was held until INR returned to satisfactory range and then restarted at lower dose. She had physical therapy and occupational therapy evaluation with ongoing interventions. It was felt she would benefit for ongoing therapy in swing bed and approval was received from insurance for this on December 24. She has no new complaints today. She states her pain is essentially unchanged. She thinks the muscle jerking may be slightly lessened. December 26. She has no new complaints. She states her pain has not changed since yesterday. December 29. She has no new complaints. She states her ostomy output has normalized. She is still having pain in her back. December 31. She has no new complaints. Feels better overall. January 01. She has no new complaints. - Constitutional Vitals: Temp Pulse Resp BP Pulse Ox 98.6 F 66 16 111/68 97 01/01/18 08:00 01/01/18 08:00 01/01/18 10:16 01/01/18 08:00 01/01/18 10:16 Exam: She is lying in bed and appears to be in less pain than previous days. Her affect is overall cheerful. I reviewed her medications and lab results. Internal Medicine: Result - Labs CBC & Chem 7: 12/30/17 06:35 12/30/17 06:35 - ABG Interpretation ABG results: PT/INR, D-dimer PT 26.4 Seconds (9.4-12.1) H 12/30/17 06:35 Consult Discharge Plan - Plan Referrals: Kit Stern MD [Primary Care Provider] - 1 week
[2018-01-01] MEDS: *HR* Warfarin 5 MG TABLET PO SCH (17:33)
[2018-01-01] MEDS: Melatonin 3 MG TABLET PO PRN (21:52)
[2018-01-02] MEDS: Ondansetron ODT 4 MG TAB.RAPDIS SL PRN ×2 (00:40→20:45)
[2018-01-02] MEDS: Methyl Salicylate/Menthol 28 GM TUBE TP SCH (08:30)
[2018-01-02] MEDS: *HR* LORazepam 1 MG TABLET PO SCH ×2 (08:35→20:45)
[2018-01-02] MEDS: *HR* HYDROcodone/Acet 10/325 mg TABLET PO PRN ×3 (08:36→22:05)
[2018-01-02] MEDS: Multivit/Ca/Min/Fe/FA 1 TAB TABLET PO SCH (08:36)
[2018-01-02] MEDS: Ondansetron ODT 4 MG TAB.RAPDIS PO PRN (08:42)
[2018-01-02] MEDS: Budesonide/Formoterol 160/4.5 MDI IH SCH (10:31)
[2018-01-02] MEDS: DALIRESP 500MCG PO SCH (16:26)
[2018-01-02] MEDS: *HR* Warfarin 5 MG TABLET PO SCH (16:27)
[2018-01-02] MEDS: Melatonin 3 MG TABLET PO PRN (20:45)
[2018-01-03] MEDS: Methyl Salicylate/Menthol 28 GM TUBE TP SCH (08:35)
[2018-01-03] MEDS: *HR* HYDROcodone/Acet 10/325 mg TABLET PO PRN (08:36)
[2018-01-03] MEDS: Ondansetron ODT 4 MG TAB.RAPDIS PO PRN (08:36)
[2018-01-03] MEDS: Multivit/Ca/Min/Fe/FA 1 TAB TABLET PO SCH (08:36)
[2018-01-03] MEDS: MOM Conc 10 ML UD.LIQ PO SCH (08:37)
[2018-01-03] MEDS: *HR* LORazepam 1 MG TABLET PO SCH (08:37)
[2018-01-03] MEDS: Budesonide/Formoterol 160/4.5 MDI IH SCH (10:40)
[2018-01-03 11:12] VITALS: BP 100/60
--- NOTE | 2018-01-03 11:15 | Discharge Summary ---
Date of Encounter: 01/03/18 Time of Encounter: 11:05 - Discharge Diagnosis (1) Traumatic ecchymosis of lower back Priority: Primary Status: Acute Qualifiers: Encounter type: initial encounter Qualified Code(s): S30.0XXA - Contusion of lower back and pelvis, initial encounter (2) Atrial fibrillation with rapid ventricular response Priority: Secondary Status: Acute (3) Anxiety Priority: Secondary Status: Chronic (4) Weakness Priority: Secondary Status: Acute (5) Hematuria Priority: Secondary Status: Acute Qualifiers: Hematuria type: unspecified type Qualified Code(s): R31.9 - Hematuria, unspecified Hospital course: Ms. Stern is a 62 year old female who was hospitalized in acute-care December 18- after presenting with left flank pain. She had left flank ecchymoses noted but claimed no trauma associated. The etiology was not determined with certainty. She was treated symptomatically with Lidoderm and BenGay as well as oral and topical narcotics. She developed truncal muscle jerking so Duragesic was discontinued on the day of discharge to swing bed. Coumadin was held until INR returned to satisfactory range and then restarted at lower dose. She had physical therapy and occupational therapy evaluation with ongoing interventions. It was felt she would benefit for ongoing therapy in swing bed and approval was received from insurance for this on December 24. She continued physical therapy and occupational therapy in swing bed. Her lower back and rib pain gradually lessened. On January 03 she was stable for discharge home. She will continue with BenGay and Lidoderm patches at discharge. Her PCP can monitor and prescribed further medications as needed. - Time Spent with Patient Total time spent providing and/or coordinating discharge services: - Discharge Medications Prescriptions: Lidocaine Patch [Lidoderm 5% patch] 2 each TP DAILY #14 adh..patch Warfarin [Coumadin] 2.5 mg PO DAILY@1800 #15 tablet Home Medications: Melatonin 3 mg PO HS PRN 01/23/15 [History] Montelukast [Singulair] 10 mg PO DAILY #30 tablet 02/14/15 [Rx] Roflumilast [Daliresp] 500 mcg PO DAILY 09/17/15 [History] Budesonide/Formoterol 160/4.5 [Symbicort 160/4.5] 2 puff IH BID 03/20/16 [ History] Multivitamin [Multi-Day Vitamins] 1 tab PO DAILY 03/26/16 [History] Albuterol Sulfate [Albuterol Inhaler] 2 aerosol PO Q4HR PRN 08/28/16 [History] Reglan 5 mg PO TID 08/28/16 [History] Cyclobenzaprine [Flexeril] 5 mg PO TID PRN #0 11/01/16 [Rx] HYDROcodone/Acet 10/325 mg [[place] 10-325 mg] 1 tab PO Q6HR PRN #240 tablet 11/01 [Rx] Ondansetron ODT [Zofran ODT] 4 mg SL Q6HR PRN #0 tab.rapdis 11/01/16 [Rx] Ondansetron HCl [Zofran] 4 mg PO Q6HR PRN #8 tablet 10/31/17 [Rx] Acetaminophen [Tylenol] 650 mg PO Q6HR PRN tablet 12/24/17 [Rx] Albuterol Neb [Proventil Neb] 2.5 mg IH Q2H PRN inhsol 12/24/17 [Rx] LORazepam [Ativan] 2 mg PO BID 3 Days #10 tablet 12/24/17 [Rx] MOM Conc [MILK OF MAGNESIA conc] 15 ml PO Q48H ud.liq 12/24/17 [Rx] Methyl Salicylate/Menthol [Bengay] 1 appl TP DAILY tube 12/24/17 [Rx] Omeprazole [PriLOSEC] 20 mg PO QAM@0730 capsule.dr 12/24/17 [Rx] Polyethylene Glycol 3350 [MiraLAX] 17 gm PO DAILY powd.pack 12/24/17 [Rx] Lidocaine Patch [Lidoderm 5% patch] 2 each TP DAILY #14 adh..patch 01/03/18 [Rx] Warfarin [Coumadin] 2.5 mg PO DAILY@1800 #15 tablet 01/03/18 [Rx] Allergies/Adverse Reactions: 3 Allergy/AdvReac Type Severity Reaction Status Date / Time methyl salicylate Allergy See Verified 12/18/17 16:27 Comments metronidazole [From Flagyl] Allergy Hives Verified 12/18/17 16:27 orange juice [Raven Juice] Allergy Swelling Verified 12/18/17 16:27 of Lip/Tongue/Throat sertraline [From Zoloft] Allergy Agitated Verified 12/18/17 16:27 vancomycin Allergy Vomiting Verified 12/18/17 16:27 fidaxomicin [From Dificid] AdvReac Vomiting Verified 12/18/17 16:27 ketorolac [From Toradol] AdvReac Vomiting Verified 12/18/17 16:27 menthol AdvReac Difficulty Verified 12/18/17 16:27 Breathing meperidine [From Demerol] AdvReac Vomiting Verified 12/18/17 16:27 ropinirole [From Requip] AdvReac Vomiting Verified 12/18/17 16:27 simvastatin AdvReac Muscle Pain Verified 12/18/17 16:27 tramadol AdvReac Vomiting Verified 12/18/17 16:27 zolmitriptan AdvReac Agitated Verified 12/18/17 16:27 Date of admission: 12/24/17 13:37 Primary care physician: Kit Stern MD Consults: 12/24/17 13:59 Consult to Occupational Therapy [CONS] Routine Comment: Evaluate, Develop and Implement Plan of Care Reason for Consult: Evaluate, Develop and Implement Plan of Care Does patient have active BEDREST order?: No Is patient medically & hemodynamically stable?: Yes Patient assessed for mobility or mobilized this visit?: Yes Consult to Physical Therapy [CONS] Routine Comment: Evaluate, Develop and Implement Plan of Care Reason for Consult: Evaluate, Develop and Implement Plan of Care Does patient have active BEDREST order?: No Is patient medically & hemodynamically stable?: Yes Patient assessed for mobility or mobilized this visit?: Yes Consult to Greenhouse Specialist [CONS] Routine Reason for SW Consult: Discharge Planning - Constitutional Vitals: Temp Pulse Resp BP Pulse Ox 97.6 F 69 16 100/60 95 01/03/18 07:00 01/03/18 07:00 01/03/18 07:00 01/03/18 07:00 01/03/18 07:00 - Patient Status Disposition: Home Health Service - Discharge Instructions Follow Up With: Kit Stern MD [Primary Care Provider] - 1 week - Diet and Activity Activity: as per physical therapy Diet: advance to your usual diet
--- NOTE | 2018-01-03 11:19 | Physician Discharge Referral ---
Home Health/Hosp Referral Info Transfer to: Home Health Attending Provider: Gildardo Provider in Charge Post Discharge: PCP Moshe) - Diagnosis (1) Traumatic ecchymosis of lower back Priority: Primary Status: Acute (2) Atrial fibrillation with rapid ventricular response Priority: Secondary Status: Acute (3) Anxiety Priority: Secondary Status: Chronic (4) Weakness Priority: Secondary Status: Acute (5) Hematuria Priority: Secondary Status: Acute - Respiratory Orders Oxygen / L per min (2 L/m by nasal cannula 07/01.) Smoking Cessation: Smoking cessation has been advised. For more information, call the [place] Tobacco Quit Line at 0-876-POJP-NOW. - Diet/Nutrition Diet/Nutrition Orders: Cardiac - Activity Activity Orders: Walker - Services Needed Following services are medically necessary services: Nursing, Home Health Aide, Physical Therapy, Occupational Therapy - Transfer Medications Prescriptions: Lidocaine Patch [Lidoderm 5% patch] 2 each TP DAILY #14 adh..patch Warfarin [Coumadin] 2.5 mg PO DAILY@1800 #15 tablet Home Medications: Melatonin 3 mg PO HS PRN 01/23/15 [History] Montelukast [Singulair] 10 mg PO DAILY #30 tablet 02/14/15 [Rx] Roflumilast [Daliresp] 500 mcg PO DAILY 09/17/15 [History] Budesonide/Formoterol 160/4.5 [Symbicort 160/4.5] 2 puff IH BID 03/20/16 [ History] Multivitamin [Multi-Day Vitamins] 1 tab PO DAILY 03/26/16 [History] Albuterol Sulfate [Albuterol Inhaler] 2 aerosol PO Q4HR PRN 08/28/16 [History] Reglan 5 mg PO TID 08/28/16 [History] Cyclobenzaprine [Flexeril] 5 mg PO TID PRN #0 11/01/16 [Rx] HYDROcodone/Acet 10/325 mg [[place] 10-325 mg] 1 tab PO Q6HR PRN #240 tablet 11/01 [Rx] Ondansetron ODT [Zofran ODT] 4 mg SL Q6HR PRN #0 tab.rapdis 11/01/16 [Rx] Ondansetron HCl [Zofran] 4 mg PO Q6HR PRN #8 tablet 10/31/17 [Rx] Acetaminophen [Tylenol] 650 mg PO Q6HR PRN tablet 12/24/17 [Rx] Albuterol Neb [Proventil Neb] 2.5 mg IH Q2H PRN inhsol 12/24/17 [Rx] LORazepam [Ativan] 2 mg PO BID 3 Days #10 tablet 12/24/17 [Rx] MOM Conc [MILK OF MAGNESIA conc] 15 ml PO Q48H ud.liq 12/24/17 [Rx] Methyl Salicylate/Menthol [Bengay] 1 appl TP DAILY tube 12/24/17 [Rx] Omeprazole [PriLOSEC] 20 mg PO QAM@0730 capsule.dr 12/24/17 [Rx] Polyethylene Glycol 3350 [MiraLAX] 17 gm PO DAILY powd.pack 12/24/17 [Rx] Lidocaine Patch [Lidoderm 5% patch] 2 each TP DAILY #14 adh..patch 01/03/18 [Rx] Warfarin [Coumadin] 2.5 mg PO DAILY@1800 #15 tablet 01/03/18 [Rx] Allergies/Adverse Reactions: 3 Allergy/AdvReac Type Severity Reaction Status Date / Time methyl salicylate Allergy See Verified 12/18/17 16:27 Comments metronidazole [From Flagyl] Allergy Hives Verified 12/18/17 16:27 orange juice [Mck[place] Juice] Allergy Swelling Verified 12/18/17 16:27 of Lip/Tongue/Throat sertraline [From Zoloft] Allergy Agitated Verified 12/18/17 16:27 vancomycin Allergy Vomiting Verified 12/18/17 16:27 fidaxomicin [From Dificid] AdvReac Vomiting Verified 12/18/17 16:27 ketorolac [From Toradol] AdvReac Vomiting Verified 12/18/17 16:27 menthol AdvReac Difficulty Verified 12/18/17 16:27 Breathing meperidine [From Demerol] AdvReac Vomiting Verified 12/18/17 16:27 ropinirole [From Requip] AdvReac Vomiting Verified 12/18/17 16:27 simvastatin AdvReac Muscle Pain Verified 12/18/17 16:27 tramadol AdvReac Vomiting Verified 12/18/17 16:27 zolmitriptan AdvReac Agitated Verified 12/18/17 16:27 Certification: Further, I certify that my clinical findings support that this patient is homebound (i.e. absences from home require considerable and taxing effort and are for medical reasons or scientologist services or infrequently or short duration when for other reasons) because: Homebound Reason: Leaving home requires considerable and taxing effort due to condition (Severe COPD with hypoxemia) Attestation: My signature below is to certify that this patient is under my care and that I, or nurse practitioner, or a physician's operations and intelligence assistant working with me, has a face-to -face encounter with this patient.
[2018-01-03] MEDS: DALIRESP 500MCG PO SCH (13:41)
== END 2018-01-03 15:50 | disposition home health service (06) | DRG 946 ==
LOC: INPPIK 13:37
PROVIDERS: ADMIT Internal Medicine; ATTEND Internal Medicine